=== PATIENT | male | born 1945 | race Caucasian/White ===

== ENCOUNTER 2016-05-06 09:18 | Day surgery (SDC) | payer OTHER ==
[2016-05-05 10:26] VITALS: BMI 30.5
[~2016-05-06 09:18] MED LIST: LACTATED RINGERS 1,000 ML IV SCH; LIDOCAINE 1% 20 ML VIAL (10MG/ML) FOR IV START INTRADERMA PRN
[2016-05-06 09:57] LABS: Glucose,Whole Blood 85 mg/dL (75-99)
[2016-05-06 10:06] VITALS: RESP 16; TEMP 97.2
[2016-05-06] MEDS ORDERED: PROPOFOL 10 MG/ML 20 ML VIAL IV ONE (10:20)
[2016-05-06] MEDS ORDERED: LIDOCAINE 1% INJ 10MG/ML (20 ML MDV) ONE (10:20)
--- NOTE | 2016-05-06 10:59 | P.PCN ---
Date of Procedure: 05/06/16 Procedure(s) Performed: Procedure: 1. Esophagogastroduodenoscopy and biopsy. 2. Total colonoscopy. Preoperative diagnosis: Screening for colon neoplasia, patient has history of polyps, and history of Mishra's esophagus. Preparation: HalfLytely prep. Sedation: Was provided by anesthesia. Brief clinical history: The patient is a 71-year-old male who was evaluated in the office and scheduled for this examination because of history of Mishra's esophagus and history of polyps. His last endoscopies were around 3 years ago or so at the [facility] and was told he should have repeat exams in around 3 years. At this point, he has no abdominal complaints, bleeding or anemia. He has been maintained on PPI over the years. Procedure: With the patient on his left lateral decubitus position and after informed consent and adequate sedation, I passed the Olympus-GIF 160 video upper endoscope through the cricopharyngeus down the esophagus. GE junction was around 41-42 cm from the incisors and I did not notice any tubular esophagus distal to the GE junction or any evidence of hiatal hernia. The esophagus did not show any erosions, ulcers, strictures or any evidence of Mishra's esophagus. The endoscope was then passed into the stomach which was insufflated with air and inspected in detail including the retroflex view in the cardia. There was minimal mottling and erythema and minimal friability but no ulcers or erosions. Similar findings were seen in the duodenum without any ulcers erosions or bleeding. I obtained biopsies from the duodenum, antrum and esophagus then the endoscope was withdrawn and I then proceeded with the colonoscopy. Perianal area did not show any fissures or fistulas. There were no masses felt on digital rectal examination. The Olympus CFQ 160L video colonoscope was then inserted in the rectum in the usual fashion and advanced to the cecum. The mucosa appeared healthy. No polyps or tumors were seen or any obvious diverticular disease or other pathology. I retroflexed endoscope in the rectum before the endoscope was withdrawn. The patient tolerated the procedure well. Plan: The patient was reassured. He will follow up with you as planned and I recommended repeat colonoscopy in 5 years. At that time, consideration can be given for repeat upper endoscopy because of the history of Mishra's despite the absence of any such findings on his exam today.
[2016-05-06 11:39] VITALS: BP 121/69; PULSE 67
== END 2016-05-06 11:42 | disposition home or self-care (01) ==
LOC: ORWHC2ENDO 09:18
DX: Z12.11 Encounter for screening for malignant neoplasm of colon (principal); K21.0 Gastro-esophageal reflux disease with esophagitis; K29.50 Unspecified chronic gastritis without bleeding; E11.9 Type 2 diabetes mellitus without complications; I10 Essential (primary) hypertension; E78.5 Hyperlipidemia, unspecified; G25.81 Restless legs syndrome; Z88.7 Allergy status to serum and vaccine; Z88.8 Allergy status to other drugs, medicaments and biological substances; Z87.442 Personal history of urinary calculi; Z79.899 Other long term (current) drug therapy; Z79.82 Long term (current) use of aspirin
CPT/HCPCS: 88305; 43239; J2001; J2704; G0105; 99153

== ENCOUNTER → 2016-05-21 | Outpatient (CLI) | payer OTHER ==
[2016-05-21 18:37] LABS: Blood Urea Nitrogen 16 mg/dL (9-20); Non-African American GFR(MDRD) >60 (>60 ml/min/1.73 sqM)
--- NOTE | 2016-05-21 19:35 | CT ---
EXAMINATION TYPE: CT urogram wo/w con DATE OF EXAM: 05/21/2016 7:26 PM COMPARISON: NONE HISTORY: Hematuria with history of stones CT DLP: 2885.2 mGycm Automated exposure control for dose reduction was used. CONTRAST: Performed with IV Contrast, patient injected with 100 mL of Omnipaque 350. FINDINGS: There is mild subsegmental atelectasis at the lung bases. There is no pleural effusion. There is no p ericardial effusion. There is slight decreased density in the liver consistent with fatty infiltration. Spleen appears nor mal. There is no pancreatic mass. There are clips from cholecystectomy. Bile ducts are not dilated. T here is no adrenal mass. Noncontrast images show no renal calculus. There is no retroperitoneal adeno jethro. There is satisfactory contrast opacification of the kidneys. There is no hydronephrosis. Urete rs are not dilated. Bladder distends smoothly. There is no sign of a pelvic mass. Appendix appears normal. I see no intestinal wall thickening. There are no dilated loops. There is no ascites. There are spondylotic changes in the lower lumbar spine. There is posterior fusion surgery in the lower lumbar spine. IMPRESSION: SPONDYLOTIC CHANGES OF THE LUMBAR SPINE. ATHEROSCLEROTIC VASCULAR DISEASE. NO EVIDENCE OF RENAL STONE OR OBSTRUCTION. NORMAL RENAL FUNCTION. MILD FATTY INFILTRATION OF THE LIVER. MILD SUBSEGMENTAL ATELECTASIS AT THE LUNG BASES.
== END | disposition home or self-care (01) ==
LOC: RADCTMAIN 17:44
PROVIDERS: ATTEND Urology
DX: K76.0 Fatty (change of) liver, not elsewhere classified (principal); I70.90 Unspecified atherosclerosis; R31.29 Other microscopic hematuria
CPT/HCPCS: 82565; 84520; 74178; 36415; 74400; Q9967

== ENCOUNTER 2017-09-10 09:08 | Emergency (ER) | payer OTHER ==
[2017-09-10 09:14] VITALS: RESP 18; TEMP 97.4
--- NOTE | 2017-09-10 09:59 | ED ---
Eye Problem HPI - General Chief complaint: Eye Problems Stated complaint: lt eye problem Time Seen by Provider: 09/10/17 09:16 Source: patient, RN notes reviewed Mode of arrival: ambulatory Limitations: no limitations - History of Present Illness Initial comments: 72-year-old male presents to the emergency Department for left eye problems. Patient states that he is having issues with his retina on the left and sees Dr. Medina. Patient states that it's he was advised to be seen immediately fear had any issues. Patient woke up with some redness and some blurred vision. He describes as a fall over his left eye. Patient denies any trauma he has no associated pain, headache, dizziness or any focal weakness. Denies any purulent drainage. - Related Data Home Medications Medication Instructions Recorded Confirmed Aspirin EC [Ecotrin] 81 mg PO DAILY 11/07/15 05/05/16 Atorvastatin [Lipitor] 80 mg PO HS 11/07/15 05/05/16 Carbidopa/Levodopa [Sinemet CR 1 tab PO DAILY@1200 11/07/15 05/05/16 50-200 mg] Carbidopa/Levodopa [Sinemet CR 2 tab PO HS 11/07/15 05/05/16 50-200 mg] Cholecalciferol [Vitamin D3] 1,000 unit PO DAILY 11/07/15 05/05/16 Dextran 70/Hypromellose [Genteal 1 drop BOTH EYES DAILY 11/07/15 05/05/16 Tears 0.1%-0.3% Drop] Ferrous Sulfate [Feosol] 325 mg PO DAILY 11/07/15 05/05/16 Gabapentin [Neurontin] 600 mg PO TID 11/07/15 05/05/16 Hydrochlorothiazide [Hydrodiuril] 25 mg PO DAILY 11/07/15 05/05/16 Losartan Potassium [Cozaar] 100 mg PO DAILY 11/07/15 05/05/16 Metoprolol Tartrate [Lopressor] 25 mg PO BID 11/07/15 05/05/16 Pantoprazole [Protonix] 40 mg PO DAILY 11/07/15 05/05/16 Sertraline [Zoloft] 100 mg PO DAILY 11/07/15 05/05/16 Sildenafil Citrate [Viagra] 100 mg PO ONCE PRN 11/07/15 05/05/16 Terazosin [Hytrin] 5 mg PO HS 11/07/15 05/05/16 clonazePAM [KlonoPIN] 0.5 mg PO HS 11/07/15 05/05/16 cycloSPORINE 0.05% OPHTH SOLN 1 drop BOTH EYES BID 11/07/15 05/05/16 [Restasis] metFORMIN HCL [Glucophage] 850 mg PO TID 11/07/15 05/05/16 rOPINIRole HCL 5 mg PO DAILY@1200 11/07/15 05/05/16 rOPINIRole HCL [Requip] 10 mg PO HS 11/07/15 05/05/16 traZODone HCL [Desyrel] 50 mg PO HS 11/07/15 05/05/16 Carbidopa/Levodopa [Sinemet CR 1 each PO QAM 05/05/16 05/05/16 50-200 mg] Allergies Allergy/AdvReac Type Severity Reaction Status Date / Time latex Allergy Rash/Hives Verified 09/10/17 10:00 Tetanus Vaccines and Toxoid Allergy Unknown Verified 09/10/17 10:00 [Tetanus Vaccines & Toxoid] Childhood tape AdvReac Rash/Hives Uncoded 05/05/16 10:04 Review of Systems ROS Statement: Those systems with pertinent positive or pertinent negative responses have been documented in the HPI. ROS Other: All systems not noted in ROS Statement are negative. Past Medical History Past Medical History: Diabetes Mellitus, GERD/Reflux, Hyperlipidemia, Hypertension Additional Past Medical History / Comment(s): RLS, kidney stones History of Any Multi-Drug Resistant Organisms: None Reported Past Surgical History: Back Surgery, Cholecystectomy, Joint Replacement, Orthopedic Surgery Additional Past Surgical History / Comment(s): RT ARM SX. RT TKA. BACK SX X 2. KIDNEY STONES REMOVED. COLONOSCOPY, EGD Past Anesthesia/Blood Transfusion Reactions: No Reported Reaction Past Psychological History: PTSD Smoking Status: Former smoker Past Alcohol Use History: Occasional Past Drug Use History: None Reported - Past Family History Mother Family Medical History: No Reported History General Exam Limitations: no limitations General appearance: alert, in no apparent distress Head exam: Present: atraumatic, normocephalic, normal inspection Eye exam: Present: PERRL, EOMI, conjunctival injection (Left, subconjunctival hemorrhage). Absent: normal appearance, scleral icterus, periorbital swelling Expanded Eyelids: Normal Inspection: Bilateral Pupils: Regular, Round: Bilateral Sclera/Conjunctival: Injection: Left, Hemorrhage: Left Anterior chamber: Normal Inspection: Bilateral Posterior chamber: Normal Inspection: Bilateral Visual acuity (R) = 20/: 20 Visual acuity (L) = 20/: 30 IOP (R) in mmH IOP (L) in mmH IOP measured with: [employer]open ENT exam: Present: normal exam, normal oropharynx, mucous membranes moist, TM's normal bilaterally, normal external ear exam Neck exam: Present: normal inspection, full ROM. Absent: tenderness, meningismus, lymphadenopathy Respiratory exam: Present: normal lung sounds bilaterally. Absent: respiratory distress, wheezes, rales, rhonchi, stridor Cardiovascular Exam: Present: regular rate, normal rhythm, normal heart sounds. Absent: systolic murmur, diastolic murmur, rubs, gallop, clicks Neurological exam: Present: alert, oriented X3, CN II-XII intact, reflexes normal. Absent: motor sensory deficit Course Vital Signs 09/10/17 09:12 Temperature 97.4 F L Pulse Rate 72 Respiratory 18 Rate Blood Pressure 123/72 O2 Sat by Pulse 99 Oximetry Medical Decision Making - Medical Decision Making 72-year-old male presented for left eye redness and blurred vision. Patient does have history of right no issues. I did contact Dr. Carrillo office in which they will see him at 10:40 AM. Patient will be discharged and sent directly to his office for evaluation with associate professor of economics. Disposition Clinical Impression: Blurred vision, left eye, Subconjunctival hemorrhage of left eye Disposition: HOME SELF-CARE Condition: Stable Instructions: Blurred Vision (ED) Additional Instructions: Go directly to Dr. Nation's office. Please return to the Emergency Department if symptoms worsen or any other concerns. Is patient prescribed a controlled substance at d/c from ED?: No Referrals: [facility],Clinic [Primary Care Provider] - 1-2 days Time of Disposition: 09:59
[2017-09-10 10:08] VITALS: BP 142/65; PULSE 91
== END 2017-09-10 10:08 | disposition home or self-care (01) ==
LOC: EC 09:08
DX: H11.32 Conjunctival hemorrhage, left eye (principal); H53.8 Other visual disturbances; E11.9 Type 2 diabetes mellitus without complications; K21.9 Gastro-esophageal reflux disease without esophagitis; E78.5 Hyperlipidemia, unspecified; I10 Essential (primary) hypertension; G25.81 Restless legs syndrome; F43.10 Post-traumatic stress disorder, unspecified; Z87.891 Personal history of nicotine dependence; Z79.82 Long term (current) use of aspirin; Z79.84 Long term (current) use of oral hypoglycemic drugs; Z79.899 Other long term (current) drug therapy; Z88.7 Allergy status to serum and vaccine; Z91.040 Latex allergy status; Z91.048 Other nonmedicinal substance allergy status
CPT/HCPCS: 99283

== ENCOUNTER 2018-06-13 13:07 | Emergency (ER) | payer OTHER ==
[2018-06-13 13:19] VITALS: TEMP 97.8
[2018-06-13] MEDS ORDERED: IPRATROPIUM-ALBUTEROL 3 ML NEB INHALATION STA (13:43)
[2018-06-13] MEDS ORDERED: methylPREDNISolone SOD SUCCI 125 MG/2 ML VIAL IV STA (13:43)
--- NOTE | 2018-06-13 13:47 | ED ---
URI HPI - General Chief Complaint: Upper Respiratory Infection Stated Complaint: Cough Time Seen by Provider: 06/13/18 13:22 Source: patient, RN notes reviewed, old records reviewed Mode of arrival: ambulatory Limitations: no limitations - History of Present Illness Initial Comments: Patient is a 73-year-old male presents emergency department today with 1 week of productive cough complaining of sinus and ear congestion. Patient reports that he feels like his ears are plugged cannot hear over the past 2 days. Patient reports that symptoms started after he came back from his cruise. Patient states that he has had no nausea or vomiting. Denies any known fever but reports occasional chills and bodyaches. Patient states that he's had no history of COPD or lung diseases. 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 - Related Data Home Medications Medication Instructions Recorded Confirmed Aspirin EC [Ecotrin] 81 mg PO DAILY 11/07/15 09/10/17 Atorvastatin [Lipitor] 80 mg PO HS 11/07/15 09/10/17 Dextran 70/Hypromellose [Genteal 1 drop BOTH EYES DAILY 11/07/15 09/10/17 Tears 0.1%-0.3% Drop] Ferrous Sulfate [Feosol] 325 mg PO BID 11/07/15 09/10/17 Gabapentin [Neurontin] 300 mg PO TID 11/07/15 09/10/17 Hydrochlorothiazide [Hydrodiuril] 25 mg PO DAILY 11/07/15 09/10/17 Losartan Potassium [Cozaar] 100 mg PO DAILY 11/07/15 09/10/17 Metoprolol Tartrate [Lopressor] 25 mg PO BID 11/07/15 09/10/17 Pantoprazole [Protonix] 40 mg PO DAILY 11/07/15 09/10/17 Terazosin [Hytrin] 5 mg PO HS 11/07/15 09/10/17 cycloSPORINE 0.05% OPHTH SOLN 1 drop BOTH EYES BID 11/07/15 09/10/17 [Restasis] metFORMIN HCL [Glucophage] 850 mg PO TID 11/07/15 09/10/17 rOPINIRole HCL 5 mg PO DAILY@1200 11/07/15 09/10/17 rOPINIRole HCL [Requip] 10 mg PO HS 11/07/15 09/10/17 Carbidopa/Levodopa [Sinemet CR 2 tab PO TID 05/05/16 09/10/17 50-200 mg] Cholecalciferol (Vitamin D3) 2,000 unit PO DAILY 09/10/17 09/10/17 [Vitamin D3] DULoxetine HCL [Cymbalta] 40 mg PO DAILY 09/10/17 09/10/17 Meloxicam [Mobic] 15 mg PO DAILY 09/10/17 09/10/17 Tadalafil [Cialis] 20 mg PO DAILY PRN 09/10/17 09/10/17 traZODone HCL 150 mg PO HS 09/10/17 09/10/17 Previous Rx's Medication Instructions Recorded Albuterol Inhaler [Ventolin Hfa 1 - 2 puff INHALATION RT-Q6H PRN 06/13/18 Inhaler] #1 inhaler Albuterol Nebulized [Ventolin 2.5 mg INHALATION Q4H #30 nebu 06/13/18 Nebulized] Azithromycin 250 mg PO DAILY #6 tablet 06/13/18 predniSONE 50 mg PO DAILY #5 tablet 06/13/18 Allergies Allergy/AdvReac Type Severity Reaction Status Date / Time latex Allergy Rash/Hives Verified 06/13/18 13:19 Tetanus Vaccines and Toxoid Allergy Unknown Verified 06/13/18 13:19 [Tetanus Vaccines & Toxoid] Childhood tape AdvReac Rash/Hives Uncoded 06/13/18 13:19 Review of Systems ROS Statement: Those systems with pertinent positive or pertinent negative responses have been documented in the HPI. ROS Other: All systems not noted in ROS Statement are negative. Past Medical History Past Medical History: Diabetes Mellitus, GERD/Reflux, Hyperlipidemia, Hypertension Additional Past Medical History / Comment(s): RLS, kidney stones History of Any Multi-Drug Resistant Organisms: None Reported Past Surgical History: Back Surgery, Cholecystectomy, Joint Replacement, Orthopedic Surgery Additional Past Surgical History / Comment(s): RT ARM SX. RT TKA. BACK SX X 2. KIDNEY STONES REMOVED. COLONOSCOPY, EGD Past Anesthesia/Blood Transfusion Reactions: No Reported Reaction Past Psychological History: PTSD Smoking Status: Former smoker Past Alcohol Use History: Occasional Past Drug Use History: None Reported - Past Family History Mother Family Medical History: No Reported History General Exam - General Exam Comments Initial Comments: 73-year-old male. Alert and oriented 3. Patient appears in no acute distress. Limitations: no limitations General appearance: alert, in no apparent distress Head exam: Present: atraumatic, normocephalic, normal inspection Eye exam: Present: normal appearance, PERRL, EOMI. Absent: scleral icterus, conjunctival injection, periorbital swelling ENT exam: Present: normal exam, mucous membranes moist, other (Patient has bilateral cerumen impactions.) Neck exam: Present: normal inspection. Absent: tenderness, meningismus, lymphadenopathy Respiratory exam: Present: wheezes, rhonchi. Absent: normal lung sounds bilaterally, respiratory distress, rales, stridor Cardiovascular Exam: Present: regular rate, normal rhythm, normal heart sounds. Absent: systolic murmur, diastolic murmur, rubs, gallop, clicks GI/Abdominal exam: Present: soft, normal bowel sounds. Absent: distended, tenderness, guarding, rebound, rigid Extremities exam: Present: normal inspection, full ROM, normal capillary refill. Absent: tenderness, pedal edema, joint swelling, calf tenderness Back exam: Present: normal inspection Neurological exam: Present: alert, oriented X3, CN II-XII intact Psychiatric exam: Present: normal affect, normal mood Course Vital Signs 06/13/18 06/13/18 06/13/18 13:17 14:00 14:25 Temperature 97.8 F Pulse Rate 89 80 84 Respiratory 18 Rate Blood Pressure 118/61 O2 Sat by Pulse 97 Oximetry 06/13/18 15:28 Temperature Pulse Rate 68 Respiratory 14 Rate Blood Pressure 111/60 O2 Sat by Pulse 94 L Oximetry Medical Decision Making - Medical Decision Making 73-year-old male presents emergency department today for cough congestion times one week. He also complains of ear congestion. He does have bilateral cerumen impaction. At this time Patient is irrigated and cerumen was disimpacted. He did have wheezing noted on exam was given a double DuoNeb treatment has significant improvement. Patient chest x-rays remain normal. He does have significant wheezing and rhonchi noted. We'll treat the Patient at this time for bronchitis with steroids and antibiotic. He was given a gram of Rocephin and ED. Blood cultures were obtained. Patient will be discharged at this time with close follow-up with his primary care doctor. Discussed strict return parameters. All questions answered. - Lab Data Result diagrams: 06/13/18 14:50 06/13/18 14:50 Lab Results 06/13/18 06/13/18 06/13/18 Range/Units 14:34 14:50 14:50 WBC 6.8 (3.8-10.6) k/uL RBC 4.64 (4.30-5.90) m/uL Hgb 13.7 (13.0-17.5) gm/dL Hct 42.9 (39.0-53.0) % MCV 92.5 (80.0-100.0) fL MCH 29.6 (25.0-35.0) pg MCHC 32.0 (31.0-37.0) g/dL RDW 13.7 (11.5-15.5) % Plt Count 149 L (150-450) k/uL Neutrophils % 61 % Lymphocytes % 25 % Monocytes % 5 % Eosinophils % 6 % Basophils % 0 % Neutrophils # 4.2 (1.3-7.7) k/uL Lymphocytes # 1.7 (1.0-4.8) k/uL Monocytes # 0.3 (0-1.0) k/uL Eosinophils # 0.4 (0-0.7) k/uL Basophils # 0.0 (0-0.2) k/uL Sodium 142 (137-145) mmol/L Potassium 3.9 (3.5-5.1) mmol/L Chloride 104 (98-107) mmol/L Carbon Dioxide 29 (22-30) mmol/L Anion Gap 9 mmol/L BUN 14 (9-20) mg/dL Creatinine 0.73 (0.66-1.25) mg/dL Est GFR (CKD-EPI)AfAm >90 (>60 ml/min/1.73 sqM) Est GFR (CKD-EPI)NonAf >90 (>60 ml/min/1.73 sqM) Glucose 76 (74-99) mg/dL Plasma Lactic Acid Sanjay (0.7-2.0) mmol/L Calcium 9.4 (8.4-10.2) mg/dL Influenza Type A RNA Not Detected (Not Detectd) Influenza Type B (PCR) Not Detected (Not Detectd) 06/13/18 Range/Units 14:50 WBC (3.8-10.6) k/uL RBC (4.30-5.90) m/uL Hgb (13.0-17.5) gm/dL Hct (39.0-53.0) % MCV (80.0-100.0) fL MCH (25.0-35.0) pg MCHC (31.0-37.0) g/dL RDW (11.5-15.5) % Plt Count (150-450) k/uL Neutrophils % % Lymphocytes % % Monocytes % % Eosinophils % % Basophils % % Neutrophils # (1.3-7.7) k/uL Lymphocytes # (1.0-4.8) k/uL Monocytes # (0-1.0) k/uL Eosinophils # (0-0.7) k/uL Basophils # (0-0.2) k/uL Sodium (137-145) mmol/L Potassium (3.5-5.1) mmol/L Chloride (98-107) mmol/L Carbon Dioxide (22-30) mmol/L Anion Gap mmol/L BUN (9-20) mg/dL Creatinine (0.66-1.25) mg/dL Est GFR (CKD-EPI)AfAm (>60 ml/min/1.73 sqM) Est GFR (CKD-EPI)NonAf (>60 ml/min/1.73 sqM) Glucose (74-99) mg/dL Plasma Lactic Acid Sanjay 1.5 (0.7-2.0) mmol/L Calcium (8.4-10.2) mg/dL Influenza Type A RNA (Not Detectd) Influenza Type B (PCR) (Not Detectd) - Radiology Data Radiology results: report reviewed Chest x-rays negative for any active croup on her disease. No change. Disposition Clinical Impression: Bronchitis, Cerumen impaction Disposition: HOME SELF-CARE Condition: Good Instructions (If sedation given, give patient instructions): Upper Respiratory Infection (ED), Cerumen Impaction (ED) Additional Instructions: Patient advised to follow-up with your primary care doctor within this much days. Take the antibiotic and steroid as prescribed. Using any inhaler as needed and decongestant medicine. Patient should return to the emergency department if any alarming signs or symptoms occur. Prescriptions: Azithromycin 250 mg PO DAILY #6 tablet predniSONE 50 mg PO DAILY #5 tablet Albuterol Inhaler [Ventolin Hfa Inhaler] 1 - 2 puff INHALATION RT-Q6H PRN #1 inhaler PRN Reason: Shortness Of Breath Albuterol Nebulized [Ventolin Nebulized] 2.5 mg INHALATION Q4H #30 nebu Is patient prescribed a controlled substance at d/c from ED?: No Referrals: [facility],Clinic [Primary Care Provider] - 1-2 days Time of Disposition: 16:02
--- NOTE | 2018-06-13 14:43 | XR ---
EXAMINATION TYPE: XR chest 2V DATE OF EXAM: 06/13/2018 COMPARISON: 11/07/2015 HISTORY: Cough TECHNIQUE: Frontal and lateral views of the chest are obtained. FINDINGS: There is no heart failure nor confluent pneumonic infiltrate. Costophrenic angles are willy r. Thoracic aorta is atheromatous. Bony thorax is intact. IMPRESSION: No active cardiopulmonary disease. No change.
[2018-06-13 15:03] LABS: Basophils % (A) 0 %; Eosinophils # (A) 0.4 k/uL (0-0.7); Eosinophils % (A) 6 %; HCT 42.9 % (39.0-53.0); HGB 13.7 gm/dL (13.0-17.5); Lymphocytes # (A) 1.7 k/uL (1.0-4.8); Lymphocytes % (A) 25 %; MCH 29.6 pg (25.0-35.0); MCV 92.5 fL (80.0-100.0); Mean Platelet Volume 7.9; Monocytes # (A) 0.3 k/uL (0-1.0); Monocytes % (A) 5 %; Neutrophils # (A) 4.2 k/uL (1.3-7.7); Neutrophils % (A) 61 %; Platelet Count 149 k/uL (150-450); RBC 4.64 m/uL (4.30-5.90); RDW 13.7 % (11.5-15.5); WBC 6.8 k/uL (3.8-10.6)
[2018-06-13] MEDS ORDERED: cefTRIAXone IN SWFI 1,000 MG/10 ML SYRINGE IVP STA (15:03)
[2018-06-13 15:17] LABS: Anion Gap 9 mmol/L; Blood Urea Nitrogen 14 mg/dL (9-20); Calcium 9.4 mg/dL (8.4-10.2); Carbon Dioxide 29 mmol/L (22-30); Chloride 104 mmol/L (98-107); Glucose 76 mg/dL (74-99); Sodium 142 mmol/L (137-145)
[2018-06-13 15:21] LABS: Potassium 3.9 mmol/L (3.5-5.1)
[2018-06-13 16:40] VITALS: BP 121/68; PULSE 66; RESP 18
== END 2018-06-13 16:40 | disposition home or self-care (01) ==
LOC: EC 13:07
DX: J40 Bronchitis, not specified as acute or chronic (principal); H61.23 Impacted cerumen, bilateral; E11.9 Type 2 diabetes mellitus without complications; K21.9 Gastro-esophageal reflux disease without esophagitis; E78.5 Hyperlipidemia, unspecified; I10 Essential (primary) hypertension; G25.81 Restless legs syndrome; F43.10 Post-traumatic stress disorder, unspecified; Z87.891 Personal history of nicotine dependence; Z79.84 Long term (current) use of oral hypoglycemic drugs; Z79.01 Long term (current) use of anticoagulants; Z79.82 Long term (current) use of aspirin; Z79.899 Other long term (current) drug therapy; Z88.7 Allergy status to serum and vaccine; Z91.040 Latex allergy status; Z91.048 Other nonmedicinal substance allergy status; Z96.651 Presence of right artificial knee joint
CPT/HCPCS: 99284 ×2; 96374 ×2; 96375 ×2; 36415; 94640; 80048; 83605; 85025; 87040; 87502; 71046; 69209 ×2; J2930; J0696

== ENCOUNTER 2018-06-17 16:51 | Inpatient (IN) | payer OTHER, MEDICARE ==
[2018-06-17 17:41] VITALS: BMI 31.3
[2018-06-17] MEDS ORDERED: clonazePAM 1 MG TAB PO PRN (18:18)
[2018-06-17] MEDS ORDERED: ARTIFICIAL TEARS-HYPROMELLOSE DROPS 15 ML BTL BOTH EYES PRN (18:18)
[2018-06-17] MEDS ORDERED: TADALAFIL 20 MG PO PRN (18:18)
[2018-06-17] MEDS ORDERED: methylPREDNISolone SOD SUCCI 125 MG/2 ML VIAL IV SCH (18:30)
[2018-06-17 19:04] LABS: Basophils % (A) 0 %; Eosinophils # (A) 0.1 k/uL (0-0.7); Eosinophils % (A) 1 %; HCT 43.2 % (39.0-53.0); Lymphocytes # (A) 1.1 k/uL (1.0-4.8); Lymphocytes % (A) 12 %; MCH 29.7 pg (25.0-35.0); MCHC 32.5 g/dL (31.0-37.0); MCV 91.5 fL (80.0-100.0); Mean Platelet Volume 9.1; Monocytes # (A) 0.2 k/uL (0-1.0); Monocytes % (A) 2 %; Neutrophils % (A) 85 %; Platelet Count 184 k/uL (150-450); RBC 4.72 m/uL (4.30-5.90); RDW 13.7 % (11.5-15.5); WBC 9.4 k/uL (3.8-10.6)
[2018-06-17 19:17] LABS: ALT 21 U/L (21-72); AST 24 U/L (17-59); Albumin 4.5 g/dL (3.5-5.0); Alkaline Phosphatase 47 U/L (38-126); Anion Gap 10 mmol/L; Blood Urea Nitrogen 17 mg/dL (9-20); Calcium 9.7 mg/dL (8.4-10.2); Carbon Dioxide 31 mmol/L (22-30); Chloride 97 mmol/L (98-107); Glucose 148 mg/dL (74-99); Potassium 4.2 mmol/L (3.5-5.1); Sodium 138 mmol/L (137-145); Total Protein 7.2 g/dL (6.3-8.2)
[2018-06-17] MEDS: SODIUM CHLORIDE 0.9% 1,000 ML IV SCH (19:59)
--- NOTE | 2018-06-17 20:01 | CT ---
EXAMINATION TYPE: CT chest wo con DATE OF EXAM: 06/17/2018 COMPARISON: None HISTORY: Pneumonia. CT DLP: 451.5 mGycm. Automated Exposure Control for Dose Reduction was Utilized. TECHNIQUE: CT scan of the thorax is performed without IV contrast. FINDINGS: There is minimal reticular subpleural density in both lungs. There is no evidence of a pulmonary mass . There is no pleural effusion. Heart size is normal. There is no pericardial effusion. There are no hilar masses. There is no mediastinal adenopathy. There is minimal atheromatous change in the thoraci c aorta. The bony thorax is intact. There is spurring in the thoracic spine. Upper abdominal soft tis sues are unremarkable. IMPRESSION: Mild subpleural density consistent with subsegmental atelectasis and pulmonary fibrosis. No suspicious pulmonary mass. No pulmonary consolidation.
[2018-06-17 20:06] LABS: Glucose,Whole Blood 132 mg/dL (75-99)
[2018-06-17] MEDS: IPRATROPIUM-ALBUTEROL 3 ML NEB INHALATION SCH (20:39)
[2018-06-17] MEDS ORDERED: AZITHROMYCIN 500 MG in SODIUM CHLORIDE 0.9% 250 ML IVPB SCH (21:00)
[2018-06-17] MEDS ORDERED: DOXAZOSIN 4 MG TAB PO SCH (21:00)
[2018-06-17] MEDS ORDERED: traZODone HCL 50 MG TAB PO SCH (21:00)
[2018-06-17] MEDS ORDERED: rOPINIRole HCL 4 MG TABLET PO SCH (21:00)
[2018-06-17] MEDS ORDERED: ATORVASTATIN 80 MG TAB PO SCH (21:00)
[2018-06-17] MEDS: cycloSPORINE 0.05% OPHTH 0.4 ML DROPERETTE BOTH EYES SCH (21:22)
[2018-06-17] MEDS: FERROUS SULFATE 325 MG TAB PO SCH (21:22)
[2018-06-17] MEDS: METOPROLOL TARTRATE 25 MG TAB PO SCH (21:23)
[2018-06-17] MEDS: INSULIN ASPART (NovoLOG) 100 UNIT/ML VIAL SQ SCH (21:23)
[2018-06-17] MEDS: CARBIDOPA-LEVODOPA ER 50-200MG 1 EACH TABLET.ER PO SCH (21:25)
[2018-06-17] MEDS: GABAPENTIN 300 MG CAP PO SCH (21:25)
[2018-06-17] MEDS: metFORMIN 850 MG TAB PO SCH (21:25)
[2018-06-18] MEDS: methylPREDNISolone SOD SUCCI 125 MG/2 ML VIAL IV SCH ×5 (00:38→12:05)
[2018-06-18 06:55] LABS: Glucose,Whole Blood 137 mg/dL (75-99)
[2018-06-18] MEDS ORDERED: PANTOPRAZOLE 40 MG TABLET PO SCH (07:30)
[2018-06-18] MEDS: INSULIN ASPART (NovoLOG) 100 UNIT/ML VIAL SQ SCH ×2 (07:55→12:06)
[2018-06-18] MEDS: IPRATROPIUM-ALBUTEROL 3 ML NEB INHALATION SCH ×2 (08:33→12:10)
[2018-06-18] MEDS ORDERED: LOSARTAN 50 MG TAB PO SCH (09:00)
[2018-06-18] MEDS ORDERED: DULoxetine HCL 20 MG CAPSULE.DR PO SCH (09:00)
[2018-06-18] MEDS ORDERED: HYDROCHLOROTHIAZIDE 25 MG TAB PO SCH (09:00)
[2018-06-18] MEDS ORDERED: ASPIRIN 81 MG PO SCH (09:00)
[2018-06-18] MEDS ORDERED: CHOLECALCIFEROL 1,000 UNIT TAB PO SCH (09:00)
[2018-06-18] MEDS ORDERED: predniSONE 50 MG TAB PO SCH (09:00)
[2018-06-18] MEDS: metFORMIN 850 MG TAB PO SCH (09:45)
[2018-06-18] MEDS: METOPROLOL TARTRATE 25 MG TAB PO SCH (09:45)
[2018-06-18] MEDS: CARBIDOPA-LEVODOPA ER 50-200MG 1 EACH TABLET.ER PO SCH (09:46)
[2018-06-18] MEDS: FERROUS SULFATE 325 MG TAB PO SCH (09:46)
[2018-06-18] MEDS: GABAPENTIN 300 MG CAP PO SCH (09:49)
[2018-06-18] MEDS: cycloSPORINE 0.05% OPHTH 0.4 ML DROPERETTE BOTH EYES SCH (09:50)
[2018-06-18] MEDS: SODIUM CHLORIDE 0.9% 1,000 ML IV SCH (10:19)
[2018-06-18 11:09] LABS: Glucose,Whole Blood 152 mg/dL (75-99)
--- NOTE | 2018-06-18 11:40 | HP ---
HISTORY AND PHYSICAL CHIEF COMPLAINT: A 73-year-old white male came to hospital for acute respiratory distress, cough, congestion, shortness of breath, failing outpatient treatment. Patient extremely lightheaded, dizziness at rest and dyspnea with exertion at which time he failed outpatient treatment. He was admitted to the hospitalist, started on antibiotics. A CAT scan of his lungs showed pulmonary fibrosis. Home medications include for restless legs syndrome, hypertension, diabetes mellitus, depression. MEDICATIONS: Please see list. A 14-point review of systems negative except for as mentioned in HPI. He is 95% on room air, temp 98, pulse 80s to 90s, respiratory 16 to 18, cardiovascular S1-S2. Lungs show scattered wheeze and rhonchi x4. Cardiovascular, S1, S2. No tachycardia. Abdomen is soft. Hematology, negative Homans. Vascular, normal dorsalis pedis, posterior pulses. Integument, no rashes. Psych fair mood and affect. ASSESSMENT: Patient pulmonary fibrosis exacerbation, tracheobronchitis, failed outpatient treatment, acute hypoxemic respiratory distress, restless legs syndrome, hypertension, diabetes mellitus. Continue current treatment for breathing. Suspect admitted for the next 1 to 2 days. MMODL / IJN: [id number] /
[2018-06-18 12:22] VITALS: BP 128/73; TEMP 97.9
[2018-06-18 13:28] VITALS: PULSE 81; RESP 20
--- NOTE | 2018-06-18 16:42 | P.CNPUL ---
History of Present Illness Consult date: 06/18/18 Reason for consult: dyspnea, cough Chief complaint: Shortness of breath History of present illness: This is a 73-year-old male who presented as a direct admit for shortness of breath, cough, congestion. The patient states that he thought he had pneumonia. He had a cold 2-3 weeks ago and states he never really got over it. He states prior to getting his cold 3 weeks ago he was not having any issues with his breathing before that. The patient does note that he has a history of Agent [place] exposure. He used to have recurrent bronchitis but has not had it in over 20 years. He is a former smoker and quit 36 years ago. He used to smoke half a pack per day for 22 years. He denies any other inhalational exposures. He denies exposures to asbestos or tuberculosis. He does have 1 cat in the home. He does not have a nebulizer. The patient states that last Thursday he started Ventolin but has not used it since being in the hospital. He denies fever and chills. He states that he did have wheezing that started when he got the cold. He denies a history of asthma or COPD. He states he has never had a PFT. The patient did have a CT chest which showed very minimal subpleural densities possibly suggestive of pulmonary fibrosis. This is discussed with the patient and his at length. Review of Systems All systems: negative Past Medical History Past Medical History: Diabetes Mellitus, GERD/Reflux, Hyperlipidemia, Hyper tension Additional Past Medical History / Comment(s): RLS, kidney stones, Parkinsons Disease History of Any Multi-Drug Resistant Organisms: None Reported Past Surgical History: Back Surgery, Cholecystectomy, Joint Replacement, Orthopedic Surgery Additional Past Surgical History / Comment(s): RT ARM SX. RT TKA. BACK SX X 2. KIDNEY STONES REMOVED. COLONOSCOPY, EGD. Cataract surgery Past Anesthesia/Blood Transfusion Reactions: No Reported Reaction Past Psychological History: PTSD Additional Psychological History / Comment(s): PTSD- pt is a combat . Smoking Status: Former smoker Past Alcohol Use History: Occasional Additional Past Alcohol Use History / Comment(s): QUIT SMOKING AT AGE 37 Past Drug Use History: None Reported - Past Family History Mother Family Medical History: No Reported History Medications and Allergies Home Medications Medication Instructions Recorded Confirmed Type Aspirin EC [Ecotrin] 81 mg PO DAILY 11/07/15 06/17/18 History Atorvastatin [Lipitor] 80 mg PO HS 11/07/15 06/17/18 History Dextran 70/Hypromellose [Genteal 1 drop BOTH EYES DAILY PRN 11/07/15 06/17/18 History Tears 0.1%-0.3% Drop] Ferrous Sulfate [Feosol] 325 mg PO BID 11/07/15 06/17/18 History Gabapentin [Neurontin] 300 mg PO TID 11/07/15 06/17/18 History Hydrochlorothiazide [Hydrodiuril] 25 mg PO DAILY 11/07/15 06/17/18 History Losartan Potassium [Cozaar] 100 mg PO DAILY 11/07/15 06/17/18 History Metoprolol Tartrate [Lopressor] 25 mg PO BID 11/07/15 06/17/18 History Pantoprazole [Protonix] 40 mg PO DAILY 11/07/15 06/17/18 History Terazosin [Hytrin] 5 mg PO HS 11/07/15 06/17/18 History cycloSPORINE 0.05% OPHTH SOLN 1 drop BOTH EYES BID 11/07/15 06/17/18 History [Restasis] metFORMIN HCL [Glucophage] 850 mg PO TID 11/07/15 06/17/18 History rOPINIRole HCL 5 mg PO DAILY@1200 11/07/15 06/17/18 History rOPINIRole HCL [Requip] 10 mg PO HS 11/07/15 06/17/18 History Carbidopa/Levodopa [Sinemet CR 2 tab PO TID 05/05/16 06/17/18 History 50-200 mg] Cholecalciferol (Vitamin D3) 2,000 unit PO DAILY 09/10/17 06/17/18 History [Vitamin D3] DULoxetine HCL [Cymbalta] 40 mg PO DAILY 09/10/17 06/17/18 History Tadalafil [Cialis] 20 mg PO DAILY PRN 09/10/17 06/17/18 History traZODone HCL 150 mg PO HS 09/10/17 06/17/18 History Albuterol Inhaler [Ventolin Hfa 1 - 2 puff INHALATION RT-Q6H PRN 06/13/18 06/17/18 Rx Inhaler] #1 inhaler predniSONE 50 mg PO DAILY #5 tablet 06/13/18 06/17/18 Rx Azithromycin See Taper PO DIRECTED 06/17/18 06/17/18 History clonazePAM [KlonoPIN] 1 mg PO HS PRN 06/17/18 06/17/18 History Allergies Allergy/AdvReac Type Severity Reaction Status Date / Time latex Allergy Rash/Hives Verified 06/17/18 18:12 Tetanus Vaccines and Toxoid Allergy Unknown Verified 06/17/18 18:12 [Tetanus Vaccines & Toxoid] Childhood tape AdvReac Rash/Hives Uncoded 06/13/18 13:19 Physical Exam Osteopathic Statement: *. No significant issues noted on an osteopathic structural exam other than those noted in the History and Physical/Consult. Vitals: Vital Signs Temp Pulse Pulse Resp BP Pulse Ox 06/18/18 13:10 81 20 06/18/18 12:19 84 06/18/18 12:10 80 06/18/18 11:40 97.9 F 76 16 128/73 92 L 06/18/18 08:44 92 06/18/18 08:33 92 06/18/18 05:01 98 F 75 18 124/73 95 06/17/18 20:53 78 06/17/18 20:40 80 06/17/18 20:34 98.1 F 63 18 118/66 95 06/17/18 17:35 97.7 F 70 16 129/64 95 Intake and Output 06/18/18 06/18/18 06/18/18 06:59 14:59 22:59 Intake Total 600 1200 Balance 600 1200 Intake: Intake, IV Titration 600 600 Amount Sodium Chloride 0.9% 1, 600 600 000 ml @ 75 mls/hr IV . [id number] [facility] Rx#:[id number] Oral 600 Other: Voiding Method Toilet Toilet # Voids 2 Gen.: Patient is alert and oriented 3, no acute distress Cardiovascular: Regular rate and rhythm, S1/S2 Lungs: Clear to auscultation bilaterally no wheezes rales or rhonchi Abdomen: Soft nontender nondistended positive bowel sounds Extremities: No edema Results - Laboratory Findings CBC and BMP: 06/17/18 18:53 06/17/18 18:53 PT/INR, D-dimer D-Dimer 0.26 mg/L FEU (<0.60) 06/17/18 18:53 Abnormal lab findings: Abnormal Labs 06/17/18 06/17/18 06/17/18 18:53 18:53 20:05 Neutrophils # 8.0 H Chloride 97 L Carbon Dioxide 31 H Glucose 148 H POC Glucose (mg/dL) 132 H 06/18/18 06/18/18 06:54 11:08 Neutrophils # Chloride Carbon Dioxide Glucose POC Glucose (mg/dL) 137 H 152 H - Diagnostic Findings CT scan - chest: report reviewed, image reviewed Assessment and Plan Assessment: Post viral syndrome Very mild subpleural densities, possibly suggestive of early IPF, however, too small to characterize Remote tobacco abuse RLS Hypertension DM2 Outpatient follow up with PFT and repeat CT in 3-[address] scan results are discussed with the patient and his at length Changes are too small to characterize at this time, we will continue to monitor outpatient Agree with albuterol PRN, Prednisone taper, would add ICS as well Follow up in pulmonary office in 2 weeks OK to DC from pulmonary standpoint. Thank you for this consultation.
[2018-06-19] MEDS ORDERED: AZITHROMYCIN 500 MG TAB PO SCH (21:00)
== END 2018-06-18 16:10 | disposition home or self-care (01) | DRG 203 ==
LOC: 3NMEDONC 16:51
PROVIDERS: ADMIT Family Medicine; ATTEND Family Medicine
DX: J40 Bronchitis, not specified as acute or chronic (principal); G20 Parkinson's disease; J84.10 Pulmonary fibrosis, unspecified; R06.03 Acute respiratory distress; E11.9 Type 2 diabetes mellitus without complications; B34.9 Viral infection, unspecified; K21.9 Gastro-esophageal reflux disease without esophagitis; F32.9 Major depressive disorder, single episode, unspecified; E78.5 Hyperlipidemia, unspecified; I10 Essential (primary) hypertension; G25.81 Restless legs syndrome; F43.10 Post-traumatic stress disorder, unspecified; Z79.84 Long term (current) use of oral hypoglycemic drugs; Z79.82 Long term (current) use of aspirin; Z79.899 Other long term (current) drug therapy; Z96.651 Presence of right artificial knee joint; Z87.891 Personal history of nicotine dependence; Z87.442 Personal history of urinary calculi; Z90.49 Acquired absence of other specified parts of digestive tract; Z91.040 Latex allergy status; Z88.7 Allergy status to serum and vaccine; Z91.048 Other nonmedicinal substance allergy status
CPT/HCPCS: 71250; 80053; 83880; 85025; 85379; 94640

== ENCOUNTER 2018-06-30 13:19 | Emergency (ER) | payer OTHER, MEDICARE ==
[2018-06-30 13:34] VITALS: RESP 18
--- NOTE | 2018-06-30 14:13 | US ---
EXAMINATION TYPE: US venous doppler duplex LE LT DATE OF EXAM: 06/30/2018 1:59 PM COMPARISON: NONE CLINICAL HISTORY: Pain. Left lower leg pain x couple days SIDE PERFORMED: Left TECHNIQUE: The lower extremity deep venous system is examined utilizing real time linear array sonog garrick with graded compression, doppler sonography and color-flow sonography. VESSELS IMAGED: External Iliac Vein (EIV) Common Femoral Vein Deep Femoral Vein Greater Saphenous Vein * Femoral Vein Popliteal Vein Small Saphenous Vein * Proximal Calf Veins (* superficial vessels) There is normal flow, compressibility, vascular waveforms. Left Leg: Appears negative for DVT IMPRESSION: No evident deep venous thrombosis at or above the left knee
--- NOTE | 2018-06-30 14:37 | ED ---
Extremity Problem HPI - General Chief complaint: Extremity Problem,Nontraumatic Stated complaint: poss blood clot Time Seen by Provider: 06/30/18 13:36 Source: patient, RN notes reviewed, old records reviewed Mode of arrival: wheelchair Limitations: no limitations - History of Present Illness Initial comments: 73-year-old male presents emergency Department today with complaints of left posterior knee pain. Patient was sent in for ruling out DVT. Patient reports no fall or trauma. He is not dull ache for the past week. Patient states that he has no other complaints. Patient denies history of DVT. Denies chest pain or shortness of breath. reports he has history of peripheral neuropathy.Patient denies any recent fever, chills, shortness of breath, chest pain, back pain, abdominal pain, nausea vomiting, numbness or tingling, dysuria or hematuria, constipation or diarrhea, headaches or visual changes, or any other current symptoms - Related Data Home Medications Medication Instructions Recorded Confirmed Aspirin EC [Ecotrin] 81 mg PO DAILY 11/07/15 06/30/18 Atorvastatin [Lipitor] 80 mg PO HS 11/07/15 06/30/18 Dextran 70/Hypromellose [Genteal 1 drop BOTH EYES DAILY PRN 11/07/15 06/30/18 Tears 0.1%-0.3% Drop] Ferrous Sulfate [Feosol] 325 mg PO BID 11/07/15 06/30/18 Gabapentin [Neurontin] 300 mg PO TID 11/07/15 06/30/18 Hydrochlorothiazide [Hydrodiuril] 25 mg PO DAILY 11/07/15 06/30/18 Losartan Potassium [Cozaar] 100 mg PO DAILY 11/07/15 06/30/18 Metoprolol Tartrate [Lopressor] 25 mg PO BID 11/07/15 06/30/18 Pantoprazole [Protonix] 40 mg PO DAILY 11/07/15 06/30/18 Terazosin [Hytrin] 5 mg PO HS 11/07/15 06/30/18 cycloSPORINE 0.05% OPHTH SOLN 1 drop BOTH EYES BID 11/07/15 06/30/18 [Restasis] metFORMIN HCL [Glucophage] 850 mg PO TID 11/07/15 06/30/18 rOPINIRole HCL 5 mg PO DAILY@1200 11/07/15 06/30/18 rOPINIRole HCL [Requip] 10 mg PO HS 11/07/15 06/30/18 Carbidopa/Levodopa [Sinemet CR 4 tab PO TID 05/05/16 06/30/18 50-200 mg] Cholecalciferol (Vitamin D3) 2,000 unit PO DAILY 09/10/17 06/30/18 [Vitamin D3] DULoxetine HCL [Cymbalta] 40 mg PO DAILY 09/10/17 06/30/18 Tadalafil [Cialis] 20 mg PO DAILY PRN 09/10/17 06/30/18 traZODone HCL 150 mg PO HS 09/10/17 06/30/18 clonazePAM [KlonoPIN] 1 mg PO HS PRN 06/17/18 06/30/18 Allergies Allergy/AdvReac Type Severity Reaction Status Date / Time latex Allergy Rash/Hives Verified 06/30/18 14:02 Tetanus Vaccines and Toxoid Allergy Unknown Verified 06/30/18 14:02 [Tetanus Vaccines & Toxoid] Childhood tape AdvReac Rash/Hives Uncoded 06/30/18 13:36 Review of Systems ROS Statement: Those systems with pertinent positive or pertinent negative responses have been documented in the HPI. ROS Other: All systems not noted in ROS Statement are negative. Past Medical History Past Medical History: Diabetes Mellitus, GERD/Reflux, Hyperlipidemia, Hypertension Additional Past Medical History / Comment(s): RLS, kidney stones, Parkinsons Disease History of Any Multi-Drug Resistant Organisms: None Reported Past Surgical History: Back Surgery, Cholecystectomy, Joint Replacement, Orthopedic Surgery Additional Past Surgical History / Comment(s): RT ARM SX. RT TKA. BACK SX X 2. KIDNEY STONES REMOVED. COLONOSCOPY, EGD. Cataract surgery Past Anesthesia/Blood Transfusion Reactions: No Reported Reaction Past Psychological History: PTSD Smoking Status: Former smoker Past Alcohol Use History: Occasional Past Drug Use History: None Reported - Past Family History Mother Family Medical History: No Reported History General Exam Limitations: no limitations General appearance: alert, in no apparent distress Head exam: Present: atraumatic, normocephalic, normal inspection Eye exam: Present: normal appearance, PERRL, EOMI. Absent: scleral icterus, conjunctival injection, periorbital swelling ENT exam: Present: normal exam, mucous membranes moist Neck exam: Present: normal inspection. Absent: tenderness, meningismus, lymphadenopathy Respiratory exam: Present: normal lung sounds bilaterally. Absent: respiratory distress, wheezes, rales, rhonchi, stridor Cardiovascular Exam: Present: regular rate, normal rhythm, normal heart sounds. Absent: systolic murmur, diastolic murmur, rubs, gallop, clicks GI/Abdominal exam: Present: soft, normal bowel sounds. Absent: distended, tenderness, guarding, rebound, rigid Extremities exam: Present: normal inspection, full ROM, normal capillary refill. Absent: tenderness, pedal edema, joint swelling, calf tenderness Left Upper Leg exam: Present: normal inspection, full ROM Knee exam: Present: normal inspection, full ROM, tenderness (Patient has tenderness over the medial meniscus.). Absent: dislocation, erythema, pain w/ pronation/supination, posterior draw sign, pain/laxity with valgus, pain/laxity with varus Lower Leg exam: Present: normal inspection, full ROM Neurovascular tendon exam: Present: no vascular compromise Gait: observed and normal Back exam: Present: normal inspection Neurological exam: Present: alert, oriented X3, CN II-XII intact Psychiatric exam: Present: normal affect, normal mood Skin exam: Present: warm, dry, intact, normal color. Absent: rash Course Vital Signs 06/30/18 13:30 Temperature 97.5 F L Pulse Rate 87 Respiratory 18 Rate Blood Pressure 101/56 O2 Sat by Pulse 96 Oximetry Medical Decision Making - Medical Decision Making Patient is a 73-year-old male sent in by PCP to rule out blood clot. He's had posterior calf pain for the past week and posterior knee pain. At this time is some tenderness over the ligaments over the posterior knee. Tenderness over the pes anseris. Patient had an ultrasound completed which is negative for DVT. Left knee x-rays negative for any acute process. Discussed likely a strain or ligamentous injury of the knee. Patient will be discharged at this time with antiplatelet her medicine. - Radiology Data Radiology results: report reviewed Extremities negative for any acute abnormality. Vascular consultation is noted incidentally. No evidence of joint effusion. Ultrasound was negative for DVT. Disposition Clinical Impression: Posterior left knee pain Disposition: HOME SELF-CARE Condition: Good Instructions (If sedation given, give patient instructions): Knee Pain (ED) Additional Instructions: Patient is advised to apply ice over the knee. Take anti-inflammatory medicine or the Mason wrap. Follow-up with orthopedic doctor primary care doctor. Return to the emergency department if there is any significant swelling redness to the leg. Is patient prescribed a controlled substance at d/c from ED?: No Referrals: Emil Oneill MD [Primary Care Provider] - 1-2 days Ramana Alvarez MD [STAFF PHYSICIAN] - 1-2 days Time of Disposition: 15:25
--- NOTE | 2018-06-30 15:22 | XR ---
Left knee HISTORY: Pain 3 views left knee Bone mineralization, joint spaces and alignment are maintained. No fracture or dislocation. Vascular calcifications noted incidentally. No evident joint effusion. IMPRESSION: No acute abnormality.
[2018-06-30 15:36] VITALS: BP 100/82; PULSE 70; TEMP 98
== END 2018-06-30 15:37 | disposition home or self-care (01) ==
LOC: EC 13:19
DX: M25.562 Pain in left knee (principal); I10 Essential (primary) hypertension; E78.5 Hyperlipidemia, unspecified; K21.9 Gastro-esophageal reflux disease without esophagitis; E11.9 Type 2 diabetes mellitus without complications; G20 Parkinson's disease; Z79.84 Long term (current) use of oral hypoglycemic drugs; Z79.82 Long term (current) use of aspirin; Z79.899 Other long term (current) drug therapy; Z91.040 Latex allergy status; Z91.048 Other nonmedicinal substance allergy status; Z88.7 Allergy status to serum and vaccine; Z96.651 Presence of right artificial knee joint; Z87.891 Personal history of nicotine dependence
CPT/HCPCS: 99284

== ENCOUNTER → 2018-09-20 | Outpatient (CLI) | payer OTHER ==
--- NOTE | 2018-09-20 08:51 | CT ---
EXAMINATION TYPE: CT chest wo con DATE OF EXAM: 09/20/2018 COMPARISON: 06/17/2018 HISTORY: 73-year-old male Chronic cough, spots in lungs TECHNIQUE: Contiguous axial scanning of the chest without IV contrast. Coronal and sagittal reconstru ctions performed. CT DLP: 471.7 mGycm Automated exposure control for dose reduction was used. FINDINGS: Heart normal size without pericardial effusion. Coronary vessel calcifications are present. Aorta normal caliber with mild atherosclerotic arch calcifications and suspected a nondominant left v ertebral artery origin directly from the aortic arch. No thoracic lymphadenopathy by CT size criteria. Minimal biapical pleural parenchymal scarring. Subpleural reticulations at the lung bases and subpleu ral region extending up to the mid lung level. No dominant groundglass densities. Stable strandy scar ring or atelectasis in the lingular region. No consolidation or pleural effusion. Low attenuation of the hepatic parenchyma. Moderate stool burden. Cholecystectomy clips. Bones: Bridging anterior endplate spondylosis mid to lower right spine with accentuated kyphosis. Fin dings suggest DISH. IMPRESSION: STABLE SUBPLEURAL RETICULATIONS AND MICROCYSTIC CHANGE IN THE BILATERAL LOWER LUNGS EXTENDING UP TO T HE MIDLUNG LEVEL. NO DOMINANT GROUNDGLASS DENSITIES. DIFFICULT TO EXCLUDE EARLY UIP/FIBROTIC NSIP AT THIS TIME. CHRONIC POSTINFLAMMATORY SEQUELA WITH SOME INTERSTITIAL FIBROSIS IS ALSO POSSIBLE.
== END | disposition home or self-care (01) ==
LOC: RADCTMAIN 08:18
PROVIDERS: ATTEND Internal Medicine
DX: J45.909 Unspecified asthma, uncomplicated (principal); G25.81 Restless legs syndrome; E78.5 Hyperlipidemia, unspecified; I10 Essential (primary) hypertension
CPT/HCPCS: 71250

== ENCOUNTER → 2019-01-12 | Outpatient (CLI) | payer OTHER ==
[2019-01-12 16:16] LABS: Calcium 9.2 mg/dL (8.7-10.3); Magnesium 1.8 mg/dL (1.5-2.4); Phosphorus 2.6 mg/dL (2.4-5.1); Potassium 4.3 mmol/L (3.5-5.5)
[2019-01-12 16:26] LABS: T4, Free (Free Thyroxine) 1.3 ng/dL (0.80-1.80)
== END | disposition home or self-care (01) ==
LOC: LABWHC1 09:22
PROVIDERS: ATTEND Psychiatry & Neurology Neurology
DX: M62.838 Other muscle spasm (principal)
CPT/HCPCS: 36415; 82310; 82607; 83735; 84100; 84132; 84295; 84439; 84443; 84481

== ENCOUNTER → 2019-01-27 | Outpatient (CLI) | payer OTHER ==
--- NOTE | 2019-01-28 01:10 | MR ---
EXAMINATION TYPE: MR lumbar spine wo con DATE OF EXAM: 01/27/2019 COMPARISON: None HISTORY: Lumbar pain TECHNIQUE: Multiplanar, multisequence images of the lumbar spine were acquired. There is metal artifact from posterior fusion surgery with rods and screws at L4 and L5 and S1. Verte bra have normal alignment. There is some degenerative mild disc space narrowing at L3-4 and L4-5. The re is posterior disc herniation at L3-4 with also some facet arthropathy. There is resultant moderate ly severe spinal stenosis at L3-4. There is no lumbar paraspinal mass. There is no compression fractu re. There is no significant narrowing of the lumbar neural foramina. IMPRESSION: Multilevel fusion surgery. Spondylotic changes. There is focal moderate lumbar spinal stenosis at L3- 4 due to posterior concentric disc herniation and facet arthropathy. There is also mild anterior disc herniation at L3-4.
== END | disposition home or self-care (01) ==
LOC: RADMRIMAIN 09:24
PROVIDERS: ATTEND Physician Assistant Medical
DX: M48.061 Spinal stenosis, lumbar region without neurogenic claudication (principal); M51.26 Other intervertebral disc displacement, lumbar region; M46.96 Unspecified inflammatory spondylopathy, lumbar region; M47.816 Spondylosis without myelopathy or radiculopathy, lumbar region; Z98.1 Arthrodesis status
CPT/HCPCS: 72148

== ENCOUNTER 2019-02-11 09:35 | Emergency (ER) | payer OTHER ==
[2019-02-11] MEDS ORDERED: diphenhydrAMINE 50 MG/ML 1 ML VIAL IVP STA (10:07)
[2019-02-11] MEDS ORDERED: ONDANSETRON 4 MG/2 ML VIAL IVP STA (10:07)
[2019-02-11] MEDS ORDERED: SODIUM CHLORIDE 0.9% 1,000 ML IV STA (10:07)
[2019-02-11] MEDS ORDERED: MORPHINE SULFATE 4 MG/ML SYRINGE IV STA (10:08)
--- NOTE | 2019-02-11 10:10 | ED ---
General Adult HPI - General Chief complaint: Headache Stated complaint: headache, dizziness Time Seen by Provider: 02/11/19 09:46 Source: EMS Mode of arrival: EMS Limitations: no limitations - History of Present Illness Initial comments: Dictation was produced using [employer] dictation software. please excuse any grammatical, word or spelling errors. Chief Complaint: 74-year-old male presents with worsening of his life. History of Present Illness: 74-year-old male presents today with headache 12 hours. Patient states he began having his headache since yesterday. States that it's in the bifrontal region radiating to the neck of the head. Patient states she's been having a cold recently with significant runny nose and cough. Patient denies any neck symptoms. Patient states his worse headache of his life. He does not have a history of headaches. States the pain as sharp and intermittent. No numbness distally paresthesias or weakness to the extremities. Patient's at bedside reports that patient is not confused. He initially went to the urgent care where he was initially evaluated in instructed to come to the emergency department for further evaluation. Patient does report that his headache did reach maximal onset of intensity within one hour. Patient has no history of intracranial aneurysms. The ROS documented in this emergency department record has been reviewed and confirmed by me. Those systems with pertinent positive or negative responses have been documented in the HPI. All other systems are other negative and/or noncontributory. PHYSICAL EXAM: General Impression: Alert and oriented x3, acute distress secondary to pain HEENT: Normocephalic atraumatic, extra-ocular movements intact, pupils equal and reactive to light bilaterally, mucous membranes moist. Cardiovascular: Heart regular rate and rhythm, S1&S2 audible, no murmurs, rubs or gallops Chest: Lungs clear to auscultation bilaterally, no rhonchi, no wheeze, no rales Abdomen: Bowel sounds present, abdomen soft, non-tender, non-distended, no organomegaly Musculoskeletal: Pulses present and equal in all extremities, no peripheral edema Motor: no focal deficits noted Neurological: CN II-XII grossly intact, no focal motor or sensory deficits noted, negative Brudzinski's, negative Kernig's, negative lhermittes sign Skin: Intact with no visualized rashes Psych: Normal affect and mood ED course: 74-year-old male with clinical presentation concerning for subarachnoid bleed. Patient is 12 hours since the onset of his symptoms. Upon arrival are within acceptable limits. Discussed with patient that his symptoms are concerning for subarachnoid hemorrhage. Laboratory evaluation was obtained. CBC, coag panel, metabolic panel is unremarkable. Computed tomography scan of the brain was unremarkable however didn't show signs of sinusitis.CT angios obtained per recommendation by Dr. Kidd. No aneurysms identified. Discussed patient case with neurologist who came down to the emergency department evaluated physician. His clinical presentation according to neurologist was consistent with sinusitis. He rec ommends patient be discharged with Augmentin. No recommendations to perform lumbar puncture at this time. Patient understandable agreeable to plan. Medications were sent to pharmacy. - Related Data Home Medications Medication Instructions Recorded Confirmed Aspirin EC [Ecotrin] 81 mg PO DAILY 11/07/15 02/11/19 Atorvastatin [Lipitor] 80 mg PO HS 11/07/15 02/11/19 Dextran 70/Hypromellose [Genteal 1 drop BOTH EYES DAILY PRN 11/07/15 02/11/19 Tears 0.1%-0.3% Drop] Ferrous Sulfate [Feosol] 325 mg PO DAILY 11/07/15 02/11/19 Hydrochlorothiazide [Hydrodiuril] 25 mg PO DAILY 11/07/15 02/11/19 Losartan Potassium [Cozaar] 100 mg PO DAILY 11/07/15 02/11/19 Metoprolol Tartrate [Lopressor] 25 mg PO BID 11/07/15 02/11/19 Pantoprazole [Protonix] 40 mg PO DAILY 11/07/15 02/11/19 Terazosin [Hytrin] 5 mg PO HS 11/07/15 02/11/19 metFORMIN HCL [Glucophage] 850 mg PO TID 11/07/15 02/11/19 Carbidopa/Levodopa [Sinemet CR 2 tab PO TID 05/05/16 02/11/19 50-200 mg] Cholecalciferol (Vitamin D3) 2,000 unit PO DAILY 09/10/17 02/11/19 [Vitamin D3] DULoxetine HCL [Cymbalta] 40 mg PO BID 09/10/17 02/11/19 traZODone HCL 150 mg PO HS PRN 09/10/17 02/11/19 Lidocaine 4% Cream [Lmx 4] 1 applic TOPICAL BID 02/11/19 02/11/19 Meloxicam [Mobic] 7.5 mg PO BID 02/11/19 02/11/19 rOPINIRole HCL [Requip Xl] 4 mg PO DAILY@1200 02/11/19 02/11/19 rOPINIRole HCL [Requip Xl] 8 mg PO HS 02/11/19 02/11/19 rOPINIRole HCL [Requip] 1 mg PO DAILY@1200 02/11/19 02/11/19 rOPINIRole HCL [Requip] 2 mg PO HS 02/11/19 02/11/19 Previous Rx's Medication Instructions Recorded Amoxic-Pot Clav 875-125Mg 1 tab PO Q12HR 7 Days #14 tablet 02/11/19 [Augmentin 875-125] Allergies Allergy/AdvReac Type Severity Reaction Status Date / Time latex Allergy Rash/Hives Verified 02/11/19 12:52 Tetanus Vaccines and Toxoid Allergy Unknown Verified 02/11/19 12:52 [Tetanus Vaccines & Toxoid] Childhood gabapentin AdvReac DEPRESSION Verified 02/11/19 12:52 lisinopril AdvReac Cough Verified 02/11/19 12:52 primidone AdvReac DROWSINESS Verified 02/11/19 12:52 tape AdvReac Rash/Hives Uncoded 06/30/18 13:36 Review of Systems ROS Statement: Those systems with pertinent positive or pertinent negative responses have been documented in the HPI. ROS Other: All systems not noted in ROS Statement are negative. Past Medical History Past Medical History: Diabetes Mellitus, GERD/Reflux, Hyperlipidemia, Hypertension Additional Past Medical History / Comment(s): RLS, kidney stones, Parkinsons Disease History of Any Multi-Drug Resistant Organisms: None Reported Past Surgical History: Back Surgery, Cholecystectomy, Joint Replacement, Orthopedic Surgery Additional Past Surgical History / Comment(s): RT ARM SX. RT TKA. BACK SX X 2. KIDNEY STONES REMOVED. COLONOSCOPY, EGD. Cataract surgery Past Anesthesia/Blood Transfusion Reactions: No Reported Reaction Past Psychological History: PTSD Smoking Status: Former smoker Past Alcohol Use History: Occasional Past Drug Use History: None Reported - Past Family History Mother Family Medical History: No Reported History General Exam Limitations: no limitations Course Vital Signs 02/11/19 02/11/19 02/11/19 09:41 12:00 13:28 Temperature 98.3 F 98.6 F Pulse Rate 92 76 87 Respiratory 16 18 18 Rate Blood Pressure 134/66 117/62 111/61 O2 Sat by Pulse 97 96 96 Oximetry Medical Decision Making - Lab Data Result diagrams: 02/11/19 10:20 02/11/19 10:20 Lab Results 02/11/19 02/11/19 02/11/19 Range/Units 10:20 10:20 10:20 WBC 8.5 (3.8-10.6) k/uL RBC 4.22 L (4.30-5.90) m/uL Hgb 12.9 L (13.0-17.5) gm/dL Hct 38.3 L (39.0-53.0) % MCV 90.7 (80.0-100.0) fL MCH 30.6 (25.0-35.0) pg MCHC 33.7 (31.0-37.0) g/dL RDW 13.0 (11.5-15.5) % Plt Count 151 (150-450) k/uL Neutrophils % 77 % Lymphocytes % 15 % Monocytes % 4 % Eosinophils % 3 % Basophils % 0 % Neutrophils # 6.5 (1.3-7.7) k/uL Lymphocytes # 1.3 (1.0-4.8) k/uL Monocytes # 0.4 (0-1.0) k/uL Eosinophils # 0.2 (0-0.7) k/uL Basophils # 0.0 (0-0.2) k/uL PT 9.4 (9.0-12.0) sec INR 0.9 (<1.2) APTT 23.5 (22.0-30.0) sec Sodium 136 L (137-145) mmol/L Potassium 3.5 (3.5-5.1) mmol/L Chloride 97 L (98-107) mmol/L Carbon Dioxide 29 (22-30) mmol/L Anion Gap 10 mmol/L BUN 15 (9-20) mg/dL Creatinine 0.74 (0.66-1.25) mg/dL Est GFR (CKD-EPI)AfAm >90 (>60 ml/min/1.73 sqM) Est GFR (CKD-EPI)NonAf >90 (>60 ml/min/1.73 sqM) Glucose 228 H (74-99) mg/dL Calcium 9.5 (8.4-10.2) mg/dL Disposition Clinical Impression: Headache Disposition: HOME SELF-CARE Condition: Good Instructions (If sedation given, give patient instructions): Acute Headache (ED), Sinusitis (ED) Additional Instructions: Rx sent to pharmacy Prescriptions: Amoxic-Pot Clav 875-125Mg [Augmentin 875-125] 1 tab PO Q12HR 7 Days #14 tablet Is patient prescribed a controlled substance at d/c from ED?: No Referrals: [facility],Clinic [Primary Care Provider] - 1-2 days Time of Disposition: 13:37
--- NOTE | 2019-02-11 10:45 | CT ---
EXAMINATION TYPE: CT brain wo con DATE OF EXAM: 02/11/2019 COMPARISON: None HISTORY: Headache, head pressure CT DLP: 1091.[address] of the brain was performed. The ventricles, basal cisterns and sulci overlying the cerebral convexities demonstrate mild enlargem ent. There is no evidence for intracranial hemorrhage or sulcal effacement. There is decreased attenuation about the periventricular white matter and deep white matter of both c erebral hemispheres, compatible with chronic small vessel ischemia. Differential diagnosis does inclu de demyelination. No mass effects are seen.No midline shift. Osseous calvarium is intact. Chronic paranasal sinusitis noted. If symptoms persist consider MRI. IMPRESSION: 1. Age related atrophic and chronic small vessel ischemic change without acute intracranial process s een at this time.
--- NOTE | 2019-02-11 10:47 | XR ---
EXAMINATION TYPE: XR chest 1V portable DATE OF EXAM: 02/11/2019 HISTORY: Shortness of breath. COMPARISON: 06/13/2018 TECHNIQUE: Single view of the chest is submitted. FINDINGS: Demonstrated are scattered senescent parenchymal change. There is no evidence for focal infiltrate. The heart is stable. Hilar and mediastinal structures are within normal limits. Degenerative changes are seen of the dorsal spine. IMPRESSION: 1. Chronic changes without evidence for acute pulmonary disease.
[2019-02-11 10:51] LABS: Basophils % (A) 0 %; Eosinophils # (A) 0.2 k/uL (0-0.7); Eosinophils % (A) 3 %; HCT 38.3 % (39.0-53.0); HGB 12.9 gm/dL (13.0-17.5); Lymphocytes # (A) 1.3 k/uL (1.0-4.8); Lymphocytes % (A) 15 %; MCH 30.6 pg (25.0-35.0); MCHC 33.7 g/dL (31.0-37.0); MCV 90.7 fL (80.0-100.0); Mean Platelet Volume 8.1; Monocytes # (A) 0.4 k/uL (0-1.0); Monocytes % (A) 4 %; Neutrophils # (A) 6.5 k/uL (1.3-7.7); Neutrophils % (A) 77 %; Platelet Count 151 k/uL (150-450); RBC 4.22 m/uL (4.30-5.90); WBC 8.5 k/uL (3.8-10.6)
[2019-02-11 10:58] LABS: African American GFR (CKD) >90 (>60 ml/min/1.73 sqM); Anion Gap 10 mmol/L; Blood Urea Nitrogen 15 mg/dL (9-20); Calcium 9.5 mg/dL (8.4-10.2); Carbon Dioxide 29 mmol/L (22-30); Chloride 97 mmol/L (98-107); Glucose 228 mg/dL (74-99); Potassium 3.5 mmol/L (3.5-5.1); Sodium 136 mmol/L (137-145)
[2019-02-11 11:01] LABS: INR 0.9 (<1.2); Partial Thromboplastin Time 23.5 sec (22.0-30.0); Prothrombin Time 9.4 sec (9.0-12.0)
--- NOTE | 2019-02-11 12:21 | CT ---
EXAMINATION TYPE: CT angio head neck DATE OF EXAM: 02/11/2019 COMPARISON: None HISTORY: Neurologic symptoms CONTRAST: Performed with IV Contrast, patient injected with 100 mL of Isovue 300. Combination Contrast CTA cervical carotids and [place] CTA cervical carotids with 3-D recons truction Contrast CTA of the cervical carotids was performed 3-D reconstruction imaging obtained at a separate workstation. Right carotid system: Mild plaque is seen of the right common carotid artery. There is mild plaque a lso noted at the carotid bulb and proximal ICA. No significant diameter reduction. ECA is patent. Right vertebral artery appears unremarkable. Left carotid system: Mild plaque is seen of the left common carotid artery. There is mild plaque als o noted at the carotid bulb and proximal ICA. No significant diameter reduction. ECA is patent. Lef t vertebral artery appears unremarkable. IMPRESSION: 1. No significant diameter reduction to account for the patient's symptoms. CTA [place] with 3-D reconstruction Contrast CTA of the [place] was performed 3-D reconstruction imaging obtained at a separate workstation. Vertebrobasilar system as well as intracranial portions of the internal carotid arteries and their ma ji tributaries are patent. I do not see evidence for sizable aneurysm or vascular malformation. Pl ease note MRI provides greater sensitivity and specificity. Visualized brain appears grossly unremar kable. IMPRESSION: 1. No significant abnormality.
[2019-02-11 13:04] VITALS: RESP 18
[2019-02-11 13:30] VITALS: BP 111/61; PULSE 87; TEMP 98.6
--- NOTE | 2019-02-11 15:18 | P.CNNES ---
History of Present Illness Consult date: 02/11/19 Requesting physician: Carlos Perez Reason for Consult: Headache History of Present Illness: Patient is a 74-year-old male with no previous history of headaches. Last night at around 6:30 to 7 PM he started having cough and congestion/cold. He then also noticed intense pain involving bilateral occipital region extending to the bilateral temporal region. The headache would come on coughing, blowing nose. It kept on getting worse. It would last for a 10-11 seconds, then goes away completely and then comes back. Patient denies any head or neck trauma, any paresthesias in this Region. Patient denies any history of migraines. He does feel pressure on the neck. Patient has history of diabetes for 30-40 years, well controlled the last A1c 5.9 as per patient. He has hypertension. Hyperlipidemia, well controlled on medication. He smoked half pack per day for 15 years, quit long time ago. Patient denies any family history of cerebral aneurysm. Patient does not go to chiropractic treatments. Patient denies any focal numbness tingling weakness slurred speech diplopia, loss of vision. Patient underwent computed tomography scan of the brain, which revealed age- related atrophic and chronic small vessel ischemic change without acute process. Chronic paranasal sinusitis. On my review, there is very significant amount of paranasal sinus disease. There is near complete opacification of the sphenoid sinus with an air fluid level. There is very significant ethmoid sinus area disease. Mucosal thickening of the left maxillary sinus. Chest x-ray showed chronic changes without evidence for acute pulmonary disease. Patient had a CTA of head and neck, which revealed no significant stenosis. Review of Systems Headaches, sinus congestion. There is shortness of breath, wheezing, diplopia, or any other focal symptoms. Denies any chest pain. Past Medical History Past Medical History: Diabetes Mellitus, GERD/Reflux, Hyperlipidemia, Hypertension Additional Past Medical History / Comment(s): RLS, kidney stones, Parkinsons Disease History of Any Multi-Drug Resistant Organisms: None Reported Past Surgical History: Back Surgery, Cholecystectomy, Joint Replacement, Orthopedic Surgery Additional Past Surgical History / Comment(s): RT ARM SX. RT TKA. BACK SX X 2. KIDNEY STONES REMOVED. COLONOSCOPY, EGD. Cataract surgery Past Anesthesia/Blood Transfusion Reactions: No Reported Reaction Past Psychological History: PTSD Smoking Status: Former smoker Past Alcohol Use History: Occasional Past Drug Use History: None Reported - Past Family History Mother Family Medical History: No Reported History Medications and Allergies Home Medications Medication Instructions Recorded Confirmed Type Aspirin EC [Ecotrin] 81 mg PO DAILY 11/07/15 02/11/19 History Atorvastatin [Lipitor] 80 mg PO HS 11/07/15 02/11/19 History Dextran 70/Hypromellose [Genteal 1 drop BOTH EYES DAILY PRN 11/07/15 02/11/19 History Tears 0.1%-0.3% Drop] Ferrous Sulfate [Feosol] 325 mg PO DAILY 11/07/15 02/11/19 History Hydrochlorothiazide [Hydrodiuril] 25 mg PO DAILY 11/07/15 02/11/19 History Losartan Potassium [Cozaar] 100 mg PO DAILY 11/07/15 02/11/19 History Metoprolol Tartrate [Lopressor] 25 mg PO BID 11/07/15 02/11/19 History Pantoprazole [Protonix] 40 mg PO DAILY 11/07/15 02/11/19 History Terazosin [Hytrin] 5 mg PO HS 11/07/15 02/11/19 History metFORMIN HCL [Glucophage] 850 mg PO TID 11/07/15 02/11/19 History Carbidopa/Levodopa [Sinemet CR 2 tab PO TID 05/05/16 02/11/19 History 50-200 mg] Cholecalciferol (Vitamin D3) 2,000 unit PO DAILY 09/10/17 02/11/19 History [Vitamin D3] DULoxetine HCL [Cymbalta] 40 mg PO BID 09/10/17 02/11/19 History traZODone HCL 150 mg PO HS PRN 09/10/17 02/11/19 History Amoxic-Pot Clav 875-125Mg 1 tab PO Q12HR 7 Days #14 tablet 02/11/19 Rx [Augmentin 875-125] Lidocaine 4% Cream [Lmx 4] 1 applic TOPICAL BID 02/11/19 02/11/19 History Meloxicam [Mobic] 7.5 mg PO BID 02/11/19 02/11/19 History rOPINIRole HCL [Requip Xl] 4 mg PO DAILY@1200 02/11/19 02/11/19 History rOPINIRole HCL [Requip Xl] 8 mg PO HS 02/11/19 02/11/19 History rOPINIRole HCL [Requip] 1 mg PO DAILY@1200 02/11/19 02/11/19 History rOPINIRole HCL [Requip] 2 mg PO HS 02/11/19 02/11/19 History Allergies Allergy/AdvReac Type Severity Reaction Status Date / Time latex Allergy Rash/Hives Verified 02/11/19 12:52 Tetanus Vaccines and Toxoid Allergy Unknown Verified 02/11/19 12:52 [Tetanus Vaccines & Toxoid] Childhood gabapentin AdvReac DEPRESSION Verified 02/11/19 12:52 lisinopril AdvReac Cough Verified 02/11/19 12:52 primidone AdvReac DROWSINESS Verified 02/11/19 12:52 tape AdvReac Rash/Hives Uncoded 06/30/18 13:36 Physical Examination - Vital Signs Vital Signs: Vital Signs Temp Pulse Resp BP Pulse Ox 02/11/19 12:00 76 18 117/62 96 02/11/19 09:41 98.3 F 92 16 134/66 97 Intake and Output 02/10/19 02/11/19 02/11/19 22:59 06:59 14:59 Other: Weight 90.265 kg On examination patient is an elderly male, in no distress. Patient is alert and awake, oriented to time place and person. Speech and language functions are normal. Attention and concentration fund of knowledge is adequate. On cranial examination pupils are surgical from previous cataract surgery, but round and reacting, visual hutson are full on confrontation, extraocular muscles are intact with no nystagmus. Face is symmetric and tongue protrudes the midline. Palatal elevation and sensation normal On muscle strength testing there is no pronator drift and the strength is normal in arms and legs distally and proximally. Reflexes are symmetric but, diminished and plantars downgoing. No ataxia for [id number] testing, tone and bulk of musc les normal. No carotid bruit or murmur, peripheral pulses present. Results [id number] on 01/12/2019. TSH normal. - Laboratory Findings CBC and BMP: 02/11/19 10:20 02/11/19 10:20 Abnormal Lab Findings: Abnormal Labs 02/11/19 02/11/19 10:20 10:20 RBC 4.22 L Hgb 12.9 L Hct 38.3 L Sodium 136 L Chloride 97 L Glucose 228 H Assessment and Plan Assessment: * Acute intermittent headache, mainly associated with Valsalva. Patient's computed tomography scan of the head showed near opacification of sphenoid sinusitis with an air-fluid level, severe ethmoid sinusitis and left maxillary sinusitis. Patient probably has acute sinusitis. * Diabetes, well controlled Plan: * Patient needs treatment for acute sinusitis. * May benefit from IV Rocephin, and perhaps should be discharged on Augmentin at least for 10-14 days. * May consider an ENT consult. * Thank you very much for allowing me to participate in care of your patient.
== END 2019-02-11 13:48 | disposition home or self-care (01) ==
LOC: EC 09:35
DX: R51 Headache (principal); R09.89 Other specified symptoms and signs involving the circulatory and respiratory systems; R05 Cough; E11.9 Type 2 diabetes mellitus without complications; K21.9 Gastro-esophageal reflux disease without esophagitis; E78.5 Hyperlipidemia, unspecified; I10 Essential (primary) hypertension; G25.81 Restless legs syndrome; G20 Parkinson's disease; Z87.891 Personal history of nicotine dependence; Z88.7 Allergy status to serum and vaccine; Z88.8 Allergy status to other drugs, medicaments and biological substances; Z91.040 Latex allergy status; Z91.048 Other nonmedicinal substance allergy status; Z79.1 Long term (current) use of non-steroidal anti-inflammatories (NSAID); Z79.82 Long term (current) use of aspirin; Z79.84 Long term (current) use of oral hypoglycemic drugs; Z79.899 Other long term (current) drug therapy
CPT/HCPCS: 99285; 96374; 96375 ×2; 96361; 36415; 93005; 80048; 85025; 85610; 85730; 71045; 70496; 70450; 70498; J2270; J1200; J2405; Q9967

== ENCOUNTER 2019-02-14 08:42 | Observation (INO) | payer OTHER, MEDICARE ==
--- NOTE | 2019-02-14 09:21 | ED ---
General Adult HPI - General Chief complaint: Upper Respiratory Infection Stated complaint: NIVIA Time Seen by Provider: 02/14/19 08:56 Source: patient, EMS, RN notes reviewed Mode of arrival: EMS Limitations: no limitations - History of Present Illness Initial comments: Patient is a pleasant 74-year-old male presenting to the emergency department with complaints of difficulty in breathing. Patient does admit to having a mild cough for the past few days. Patient states dyspnea started this morning. Patient does feel more short of breath with lying down. No leg pain or leg swelling. Patient does admit to having some mild tightness in his chest. No fevers. No history of similar symptoms previously. Patient states he has had some mild shortness of breath over the past year and a half since returning from a cruise. - Related Data Home Medications Medication Instructions Recorded Confirmed Aspirin EC [Ecotrin] 81 mg PO DAILY 11/07/15 02/11/19 Atorvastatin [Lipitor] 80 mg PO HS 11/07/15 02/11/19 Dextran 70/Hypromellose [Genteal 1 drop BOTH EYES DAILY PRN 11/07/15 02/11/19 Tears 0.1%-0.3% Drop] Ferrous Sulfate [Feosol] 325 mg PO DAILY 11/07/15 02/11/19 Hydrochlorothiazide [Hydrodiuril] 25 mg PO DAILY 11/07/15 02/11/19 Losartan Potassium [Cozaar] 100 mg PO DAILY 11/07/15 02/11/19 Metoprolol Tartrate [Lopressor] 25 mg PO BID 11/07/15 02/11/19 Pantoprazole [Protonix] 40 mg PO DAILY 11/07/15 02/11/19 Terazosin [Hytrin] 5 mg PO HS 11/07/15 02/11/19 metFORMIN HCL [Glucophage] 850 mg PO TID 11/07/15 02/11/19 Carbidopa/Levodopa [Sinemet CR 2 tab PO TID 05/05/16 02/11/19 50-200 mg] Cholecalciferol (Vitamin D3) 2,000 unit PO DAILY 09/10/17 02/11/19 [Vitamin D3] DULoxetine HCL [Cymbalta] 40 mg PO BID 09/10/17 02/11/19 traZODone HCL 150 mg PO HS PRN 09/10/17 02/11/19 Lidocaine 4% Cream [Lmx 4] 1 applic TOPICAL BID 02/11/19 02/11/19 Meloxicam [Mobic] 7.5 mg PO BID 02/11/19 02/11/19 rOPINIRole HCL [Requip Xl] 4 mg PO DAILY@1200 02/11/19 02/11/19 rOPINIRole HCL [Requip Xl] 8 mg PO HS 02/11/19 02/11/19 rOPINIRole HCL [Requip] 1 mg PO DAILY@1200 02/11/19 02/11/19 rOPINIRole HCL [Requip] 2 mg PO HS 02/11/19 02/11/19 Previous Rx's Medication Instructions Recorded Amoxic-Pot Clav 875-125Mg 1 tab PO Q12HR 7 Days #14 tablet 02/11/19 [Augmentin 875-125] Allergies Allergy/AdvReac Type Severity Reaction Status Date / Time latex Allergy Rash/Hives Verified 02/11/19 12:52 Tetanus Vaccines and Toxoid Allergy Unknown Verified 02/11/19 12:52 [Tetanus Vaccines & Toxoid] Childhood gabapentin AdvReac DEPRESSION Verified 02/11/19 12:52 lisinopril AdvReac Cough Verified 02/11/19 12:52 primidone AdvReac DROWSINESS Verified 02/11/19 12:52 tape AdvReac Rash/Hives Uncoded 06/30/18 13:36 Review of Systems ROS Statement: Those systems with pertinent positive or pertinent negative responses have been documented in the HPI. ROS Other: All systems not noted in ROS Statement are negative. Constitutional: Denies: fever Eyes: Denies: eye pain ENT: Denies: ear pain Respiratory: Reports: cough, dyspnea Cardiovascular: Reports: chest pain Endocrine: Denies: fatigue Gastrointestinal: Denies: abdominal pain Genitourinary: Denies: dysuria Musculoskeletal: Denies: back pain Skin: Denies: rash Neurological: Denies: weakness Past Medical History Past Medical History: Diabetes Mellitus, GERD/Reflux, Hyperlipidemia, Hypertension Additional Past Medical History / Comment(s): RLS, kidney stones, Parkinsons Disease History of Any Multi-Drug Resistant Organisms: None Reported Past Surgical History: Back Surgery, Cholecystectomy, Joint Replacement, Orthopedic Surgery Additional Past Surgical History / Comment(s): RT ARM SX. RT TKA. BACK SX X 2. KIDNEY STONES REMOVED. COLONOSCOPY, EGD. Cataract surgery Past Anesthesia/Blood Transfusion Reactions: No Reported Reaction Past Psychological History: PTSD Smoking Status: Former smoker Past Alcohol Use History: Occasional Past Drug Use History: None Reported - Past Family History Mother Family Medical History: No Reported History General Exam Limitations: no limitations General appearance: alert, in no apparent distress Head exam: Present: normocephalic Eye exam: Present: normal appearance, PERRL ENT exam: Present: normal oropharynx Neck exam: Present: normal inspection Respiratory exam: Present: normal lung sounds bilaterally. Absent: chest wall tenderness Cardiovascular Exam: Present: regular rate, normal rhythm Expanded Peripheral pulses: 2+: Radial (R), Radial (L), Posterior Tibialis (R), Posterior Tibialis (L), Dorsalis Pedis (R), Dorsalis Pedis (L) GI/Abdominal exam: Present: soft. Absent: tenderness Extremities exam: Present: normal inspection. Absent: pedal edema, calf tenderness Neurological exam: Present: alert Psychiatric exam: Present: normal affect, normal mood Skin exam: Present: normal color Course Vital Signs 02/14/19 08:52 Temperature 98.1 F Pulse Rate 69 Respiratory 16 Rate Blood Pressure 133/75 O2 Sat by Pulse 98 Oximetry EKG Findings - EKG Comments: EKG Findings:: Normal sinus rhythm 72. IA 162. QRS 80. QT 410. QTc 448. Normal axis. Normal QRS. No acute ST change. Medical Decision Making - Medical Decision Making Patient reevaluated and resting comfortably in bed. Patient and family updated on results and plan. Dr. Mason has been paged permission for this. Patient. - Lab Data Result diagrams: 02/14/19 09:25 02/14/19 09:25 Lab Results 02/14/19 02/14/19 02/14/19 Range/Units 09:25 09:25 09:25 WBC 6.7 (3.8-10.6) k/uL RBC 4.52 (4.30-5.90) m/uL Hgb 13.4 (13.0-17.5) gm/dL Hct 40.8 (39.0-53.0) % MCV 90.3 (80.0-100.0) fL MCH 29.7 (25.0-35.0) pg MCHC 32.9 (31.0-37.0) g/dL RDW 12.9 (11.5-15.5) % Plt Count 182 (150-450) k/uL Neutrophils % 60 % Lymphocytes % 26 % Monocytes % 5 % Eosinophils % 4 % Basophils % 1 % Neutrophils # 4.0 (1.3-7.7) k/uL Lymphocytes # 1.8 (1.0-4.8) k/uL Monocytes # 0.3 (0-1.0) k/uL Eosinophils # 0.3 (0-0.7) k/uL Basophils # 0.1 (0-0.2) k/uL PT 9.4 (9.0-12.0) sec INR 0.9 (<1.2) APTT 24.4 (22.0-30.0) sec D-Dimer 0.44 (<0.60) mg/L FEU Sodium 139 (137-145) mmol/L Potassium 4.0 (3.5-5.1) mmol/L Chloride 102 (98-107) mmol/L Carbon Dioxide 29 (22-30) mmol/L Anion Gap 8 mmol/L BUN 14 (9-20) mg/dL Creatinine 0.70 (0.66-1.25) mg/dL Est GFR (CKD-EPI)AfAm >90 (>60 ml/min/1.73 sqM) Est GFR (CKD-EPI)NonAf >90 (>60 ml/min/1.73 sqM) Glucose 91 (74-99) mg/dL Calcium 9.3 (8.4-10.2) mg/dL Magnesium 2.0 (1.6-2.3) mg/dL Total Bilirubin 0.8 (0.2-1.3) mg/dL AST 23 (17-59) U/L ALT 33 (21-72) U/L Alkaline Phosphatase 57 (38-126) U/L Troponin I (0.000-0.034) ng/mL NT-Pro-B Natriuret Pep pg/mL Total Protein 7.0 (6.3-8.2) g/dL Albumin 4.2 (3.5-5.0) g/dL 02/14/19 02/14/19 Range/Units 09:25 09:25 WBC (3.8-10.6) k/uL RBC (4.30-5.90) m/uL Hgb (13.0-17.5) gm/dL Hct (39.0-53.0) % MCV (80.0-100.0) fL MCH (25.0-35.0) pg MCHC (31.0-37.0) g/dL RDW (11.5-15.5) % Plt Count (150-450) k/uL Neutrophils % % Lymphocytes % % Monocytes % % Eosinophils % % Basophils % % Neutrophils # (1.3-7.7) k/uL Lymphocytes # (1.0-4.8) k/uL Monocytes # (0-1.0) k/uL Eosinophils # (0-0.7) k/uL Basophils # (0-0.2) k/uL PT (9.0-12.0) sec INR (<1.2) APTT (22.0-30.0) sec D-Dimer (<0.60) mg/L FEU Sodium (137-145) mmol/L Potassium (3.5-5.1) mmol/L Chloride (98-107) mmol/L Carbon Dioxide (22-30) mmol/L Anion Gap mmol/L BUN (9-20) mg/dL Creatinine (0.66-1.25) mg/dL Est GFR (CKD-EPI)AfAm (>60 ml/min/1.73 sqM) Est GFR (CKD-EPI)NonAf (>60 ml/min/1.73 sqM) Glucose (74-99) mg/dL Calcium (8.4-10.2) mg/dL Magnesium (1.6-2.3) mg/dL Total Bilirubin (0.2-1.3) mg/dL AST (17-59) U/L ALT (21-72) U/L Alkaline Phosphatase (38-126) U/L Troponin I <0.012 (0.000-0.034) ng/mL NT-Pro-B Natriuret Pep 37 pg/mL Total Protein (6.3-8.2) g/dL Albumin (3.5-5.0) g/dL - Radiology Data Radiology results: image reviewed (Chest x-ray shows chronic changes without acute process.) Disposition Clinical Impression: Chest pain, Dyspnea Disposition: ADMITTED IP TO THIS HOSP Is patient prescribed a controlled substance at d/c from ED?: No Referrals: [facility] [Primary Care Provider] - 1-2 days Decision Time: 11:14
--- NOTE | 2019-02-14 09:45 | XR ---
EXAMINATION TYPE: XR chest 2V DATE OF EXAM: 02/14/2019 COMPARISON: 02/11/2019 HISTORY: Difficulty breathing TECHNIQUE: Frontal and lateral views of the chest are obtained. FINDINGS: Chronic interstitial prominence is seen throughout. The lungs are improved in aeration in c omparison to the prior of 02/11/2019. There is no focal air space opacity, pleural effusion, or pneum othorax seen. The cardiac silhouette size is within normal limits. Diffuse osseous demineralization. The osseous structures are intact. Moderate multilevel degenerative disc disease of the thoracic sp ine. IMPRESSION: Redemonstration of chronic changes with no acute cardiopulmonary process. Improvement ae ration the lungs in comparison the prior.
[2019-02-14 09:49] LABS: Basophils # (A) 0.1 k/uL (0-0.2); Basophils % (A) 1 %; Eosinophils # (A) 0.3 k/uL (0-0.7); Eosinophils % (A) 4 %; HCT 40.8 % (39.0-53.0); HGB 13.4 gm/dL (13.0-17.5); Lymphocytes # (A) 1.8 k/uL (1.0-4.8); Lymphocytes % (A) 26 %; MCH 29.7 pg (25.0-35.0); MCHC 32.9 g/dL (31.0-37.0); MCV 90.3 fL (80.0-100.0); Mean Platelet Volume 8.2; Monocytes # (A) 0.3 k/uL (0-1.0); Monocytes % (A) 5 %; Neutrophils % (A) 60 %; Platelet Count 182 k/uL (150-450); RBC 4.52 m/uL (4.30-5.90); RDW 12.9 % (11.5-15.5); WBC 6.7 k/uL (3.8-10.6)
[2019-02-14 09:59] LABS: ALT 33 U/L (21-72); AST 23 U/L (17-59); African American GFR (CKD) >90 (>60 ml/min/1.73 sqM); Albumin 4.2 g/dL (3.5-5.0); Alkaline Phosphatase 57 U/L (38-126); Anion Gap 8 mmol/L; Blood Urea Nitrogen 14 mg/dL (9-20); Calcium 9.3 mg/dL (8.4-10.2); Carbon Dioxide 29 mmol/L (22-30); Chloride 102 mmol/L (98-107); Glucose 91 mg/dL (74-99); Non-African American GFR(CKD) >90 (>60 ml/min/1.73 sqM); Sodium 139 mmol/L (137-145); Total Bilirubin 0.8 mg/dL (0.2-1.3)
[2019-02-14 10:20] LABS: D-Dimer 0.44 mg/L FEU (<0.60); INR 0.9 (<1.2)
[2019-02-14 10:21] LABS: Partial Thromboplastin Time 24.4 sec (22.0-30.0); Prothrombin Time 9.4 sec (9.0-12.0)
[2019-02-14] MEDS ORDERED: NITROGLYCERIN SL TABS 0.4 MG TAB SUBLINGUAL PRN (11:14)
[2019-02-14] MEDS ORDERED: ASPIRIN 81 MG PO STA (11:14)
[2019-02-14] MEDS ORDERED: ACETAMINOPHEN TAB 500 MG TAB PO STA (11:15)
[2019-02-14] MEDS: NITROGLYCERIN OINT 1 INCH/GM PACKET TOPICAL SCH ×2 (11:57→16:33)
[2019-02-14 12:28] LABS: Glucose,Whole Blood 122 mg/dL (75-99)
--- NOTE | 2019-02-14 12:46 | P.CRDCN ---
History of Present Illness Consult date: 02/14/19 Chief complaint: Shortness of breath History of present illness: This is a pleasant 74-year-old gentleman with a past medical history significant for diabetes type 2, hypertension, dyslipidemia, and Parkinson disease, presented to the emergency room complaining of shortness of breath. The patient initially presented to the emergency room this past Thursday complaining of congestion and he was discharged home same day. This time, he presented complaining of shortness of breath started this morning. The patient describes exertional dyspnea without orthopnea or PND. He did not have any symptoms of chest pain or chest discomfort, dizziness, heart racing, heart fluttering, or syncope. No lower extremities edema. No history of coronary artery disease or congestive heart failure or cardiac arrhythmia and the patient never seen any gin operator in the past. He does have though very significant family history of coronary artery disease involving his father as well as his 2 brothers. The EKG showed sinus rhythm without any ST or T-wave abnormalities. The first set of troponin came in to be unremarkable. The d-dimer came in to be unremarkable. The chest x-ray showed no acute abnormalities. On examination, the patient seems to be euvolemic. The BNP was checked and came in to be also unremarkable. I did review the previous medical records and no indication that the patient was admitted to the hospital before. No cardiac workup was done before. Currently the patient is not under the care of the gin operator. On physical examination the patient does have very significant pansystolic murmur in the apical area. We'll obtain an echocardiogram for further clarification. Also will follow-up on serial cardiac enzymes. Past Medical History Past Medical History: Diabetes Mellitus, GERD/Reflux, Hyperlipidemia, Hypertension Additional Past Medical History / Comment(s): RLS, kidney stones, Parkinsons Disease History of Any Multi-Drug Resistant Organisms: None Reported Past Surgical History: Back Surgery, Cholecystectomy, Joint Replacement, Orthopedic Surgery Additional Past Surgical History / Comment(s): RT ARM SX. RT TKA. BACK SX X 2. KIDNEY STONES REMOVED. COLONOSCOPY, EGD. Cataract surgery Past Anesthesia/Blood Transfusion Reactions: No Reported Reaction Past Psychological History: PTSD Smoking Status: Former smoker Past Alcohol Use History: Occasional Past Drug Use History: None Reported - Past Family History Mother Family Medical History: No Reported History Medications and Allergies Home Medications Medication Instructions Recorded Confirmed Type Aspirin EC [Ecotrin] 81 mg PO DAILY 11/07/15 02/14/19 History Atorvastatin [Lipitor] 80 mg PO HS 11/07/15 02/14/19 History Dextran 70/Hypromellose [Genteal 1 drop BOTH EYES DAILY PRN 11/07/15 02/14/19 History Tears 0.1%-0.3% Drop] Ferrous Sulfate [Feosol] 325 mg PO DAILY 11/07/15 02/14/19 History Hydrochlorothiazide [Hydrodiuril] 25 mg PO DAILY 11/07/15 02/14/19 History Losartan Potassium [Cozaar] 100 mg PO DAILY 11/07/15 02/14/19 History Metoprolol Tartrate [Lopressor] 25 mg PO BID 11/07/15 02/14/19 History Pantoprazole [Protonix] 40 mg PO DAILY 11/07/15 02/14/19 History Terazosin [Hytrin] 5 mg PO HS 11/07/15 02/14/19 History metFORMIN HCL [Glucophage] 850 mg PO TID 11/07/15 02/14/19 History Carbidopa/Levodopa [Sinemet CR 2 tab PO TID 05/05/16 02/14/19 History 50-200 mg] Cholecalciferol (Vitamin D3) 2,000 unit PO DAILY 09/10/17 02/14/19 History [Vitamin D3] DULoxetine HCL [Cymbalta] 40 mg PO BID 09/10/17 02/14/19 History traZODone HCL 150 mg PO HS PRN 09/10/17 02/14/19 History Amoxic-Pot Clav 875-125Mg 1 tab PO Q12HR 7 Days #14 tablet 02/11/19 02/14/19 Rx [Augmentin 875-125] Lidocaine 4% Cream [Lmx 4] 1 applic TOPICAL BID 02/11/19 02/14/19 History Meloxicam [Mobic] 7.5 mg PO BID 02/11/19 02/14/19 History rOPINIRole HCL [Requip] 1 mg PO DAILY@1200 02/11/19 02/14/19 History rOPINIRole HCL [Requip] 2 mg PO HS 02/11/19 02/14/19 History Tadalafil 20 mg PO ONCE PRN 02/14/19 02/14/19 History clonazePAM [KlonoPIN] 1 mg PO HS PRN 02/14/19 02/14/19 History cycloSPORINE 0.05% OPHTH SOLN 1 drop BOTH EYES BID 02/14/19 02/14/19 History [Restasis] rOPINIRole HCL [Requip] 4 mg PO DAILY@1200 02/14/19 02/14/19 History rOPINIRole HCL [Requip] 8 mg PO HS 02/14/19 02/14/19 History Allergies Allergy/AdvReac Type Severity Reaction Status Date / Time latex Allergy Rash/Hives Verified 02/14/19 11:37 Tetanus Vaccines and Toxoid Allergy Unknown Verified 02/14/19 11:37 [Tetanus Vaccines & Toxoid] Childhood gabapentin AdvReac DEPRESSION Verified 02/14/19 11:37 lisinopril AdvReac Cough Verified 02/14/19 11:37 primidone AdvReac DROWSINESS Verified 02/14/19 11:37 tape AdvReac Rash/Hives Uncoded 06/30/18 13:36 Physical Exam Vitals: Vital Signs Temp Pulse Resp BP Pulse Ox 02/14/19 11:59 72 16 125/67 100 02/14/19 08:52 98.1 F 69 16 133/75 98 Intake and Output 02/13/19 02/14/19 02/14/19 22:59 06:59 14:59 Intake Total 120 Balance 120 Intake: Oral 120 Other: Weight 89.811 kg - Constitutional General appearance: no acute distress - Respiratory Respiratory: bilateral: CTA - Cardiovascular Rhythm: regular Heart sounds: normal: S1, S2 Abnormal Heart Sounds: systolic murmur Results 02/14/19 09:25 02/14/19 09:25 Cardiac Enzymes 02/14/19 02/14/19 Range/Units 09:25 09:25 AST 23 (17-59) U/L Troponin I <0.012 (0.000-0.034) ng/mL Coagulation 02/14/19 Range/Units 09:25 PT 9.4 (9.0-12.0) sec APTT 24.4 (22.0-30.0) sec CBC 02/14/19 Range/Units 09:25 WBC 6.7 (3.8-10.6) k/uL RBC 4.52 (4.30-5.90) m/uL Hgb 13.4 (13.0-17.5) gm/dL Hct 40.8 (39.0-53.0) % Plt Count 182 (150-450) k/uL Comprehensive Metabolic Panel 02/14/19 Range/Units 09:25 Sodium 139 (137-145) mmol/L Potassium 4.0 (3.5-5.1) mmol/L Chloride 102 (98-107) mmol/L Carbon Dioxide 29 (22-30) mmol/L BUN 14 (9-20) mg/dL Creatinine 0.70 (0.66-1.25) mg/dL Glucose 91 (74-99) mg/dL Calcium 9.3 (8.4-10.2) mg/dL AST 23 (17-59) U/L ALT 33 (21-72) U/L Alkaline Phosphatase 57 (38-126) U/L Total Protein 7.0 (6.3-8.2) g/dL Albumin 4.2 (3.5-5.0) g/dL Current Medications Generic Name Dose Route Start Last Admin Trade Name Alliq PRN Reason Stop Dose Admin Aspirin 325 mg 02/15/19 09:00 Aspirin PO DAILY PAULINA Nitroglycerin 0.4 mg 02/14/19 11:14 Nitrostat SUBLINGUAL Q5M PRN Chest Pain Nitroglycerin 1 inch 02/14/19 12:00 02/14/19 11:57 Nitro-Bid Oint TOPICAL 1 inch Q6HR PAULINA Administration Intake and Output 02/13/19 02/14/19 02/14/19 22:59 06:59 14:59 Intake Total 120 Balance 120 Intake: Oral 120 Other: Weight 89.811 kg Patient Weight 02/15/19 06:59 Weight 89.811 kg 02/14/19 09:25 02/14/19 09:25 Assessment and Plan Assessment: Assessment #1 shortness of breath with exertion. #2 diabetes type 2 #3 hypertension #4 dyslipidemia #5 Parkinson disease #6 significant family history of CAD Plan #1 rule out acute coronary syndrome. We'll follow-up on the serial cardiac enzymes #2 PE was ruled out. The d-dimer came in to be unremarkable #3 rule out severe CAD. If the cardiac enzymes came in to be unremarkable also chest obtaining stress test to rule out severe CAD. #4 obtain an echocardiogram was Doppler for further clarification of the etiology of the heart murmur #5 follow-up with the patient Thank you for allowing us participate in the patient's care
[2019-02-14] MEDS ORDERED: clonazePAM 1 MG TAB PO PRN (13:10)
[2019-02-14] MEDS ORDERED: traZODone HCL 100 MG TAB PO PRN (13:10)
[2019-02-14] MEDS ORDERED: TADALAFIL 20 MG PO PRN (13:10)
[2019-02-14] MEDS ORDERED: ARTIFICIAL TEARS-HYPROMELLOSE DROPS 15 ML BTL BOTH EYES PRN (13:10)
--- NOTE | 2019-02-14 13:11 | P.HPIM ---
History of Present Illness H&P Date: 02/14/19 Chief Complaint: Shortness of breath Mr. Perez is a 74-year-old male with a past medical history of hypertension, hyperlipidemia, diabetes mellitus, GERD, Parkinson's disease coming into the hospital with a chief complaint of difficulty in breathing. Patient states that he initially came in on Thursday to the emergency Department with a chief complaint of headaches and cold-like symptoms. At that visit patient had a CT of his head which was showing sinusitis so he was discharged home on Augmentin that he has been taking and he also got a CT angiogram of the brain that was negative. But this morning patient states that he woke up having difficulty in breathing. He denies having any orthopnea or PND. No lower extremity swelling. He complains of cough with productive white colored sputum. Denies having any palpitations. Patient quit smoking 37 years back. He smoked for 18 years a pack a day. He states that he has significant family history of coronary artery disease in his father and his 2 brothers. Patient denies having any dizziness or syncopal episodes. No complaints of headaches or blurring of vision. No speech abnormalities. No weakness of his extremities. Patient denies having any fevers chills or rigors. No abdominal pain nausea vomiting or diarrhea. No dysuria or hematuria. In the emergency room patient had EKG that was not showing any ST or T-wave abnormalities, troponin is less than 0.012, proBNP 37, d-dimer 0.44. He also had a chest x-ray done showing no acute cardiopulmonary process. Review of Systems REVIEW OF SYSTEMS: HEENT: Headaches that are getting better, mild cold-like symptoms with a nasal discharge PSYCH: No anxiety or depression NEURO:No c/o weakness of the extremties, No facial droop, No speech abnormalities. VASCULAR: no edema HEMATOLOGIC: No history of easy bleeding and bruising . No recent infections . RESPIRATORY: No cough INTEGUMENT: no rashes OPHTHALMOLOGIC: No blurry vision and no eye discharge : No dysuria or hematuria CARDIAC: No chest pain or paroxysmal nocturnal dyspnea MUSCULOSKELETAL : No Aches or pains in the joints or muscles. GI: No abdominal pain, Nausea or vomiting. No constipation or diarrhea. All 13 review of systems are negative except for ones mentioned above Past Medical History Past Medical History: Diabetes Mellitus, GERD/Reflux, Hyperlipidemia, Hypertension Additional Past Medical History / Comment(s): RLS, kidney stones, Parkinsons Disease History of Any Multi-Drug Resistant Organisms: None Reported Past Surgical History: Back Surgery, Cholecystectomy, Joint Replacement, Orthopedic Surgery Additional Past Surgical History / Comment(s): RT ARM SX. RT TKA. BACK SX X 2. KIDNEY STONES REMOVED. COLONOSCOPY, EGD. Cataract surgery Past Anesthesia/Blood Transfusion Reactions: No Reported Reaction Past Psychological History: PTSD Smoking Status: Former smoker Past Alcohol Use History: Occasional Past Drug Use History: None Reported - Past Family History Mother Family Medical History: No Reported History Medications and Allergies Home Medications Medication Instructions Recorded Confirmed Type Aspirin EC [Ecotrin] 81 mg PO DAILY 11/07/15 02/14/19 History Atorvastatin [Lipitor] 80 mg PO HS 11/07/15 02/14/19 History Dextran 70/Hypromellose [Genteal 1 drop BOTH EYES DAILY PRN 11/07/15 02/14/19 History Tears 0.1%-0.3% Drop] Ferrous Sulfate [Feosol] 325 mg PO DAILY 11/07/15 02/14/19 History Hydrochlorothiazide [Hydrodiuril] 25 mg PO DAILY 11/07/15 02/14/19 History Losartan Potassium [Cozaar] 100 mg PO DAILY 11/07/15 02/14/19 History Metoprolol Tartrate [Lopressor] 25 mg PO BID 11/07/15 02/14/19 History Pantoprazole [Protonix] 40 mg PO DAILY 11/07/15 02/14/19 History Terazosin [Hytrin] 5 mg PO HS 11/07/15 02/14/19 History metFORMIN HCL [Glucophage] 850 mg PO TID 11/07/15 02/14/19 History Carbidopa/Levodopa [Sinemet CR 2 tab PO TID 05/05/16 02/14/19 History 50-200 mg] Cholecalciferol (Vitamin D3) 2,000 unit PO DAILY 09/10/17 02/14/19 History [Vitamin D3] DULoxetine HCL [Cymbalta] 40 mg PO BID 09/10/17 02/14/19 History traZODone HCL 150 mg PO HS PRN 09/10/17 02/14/19 History Amoxic-Pot Clav 875-125Mg 1 tab PO Q12HR 7 Days #14 tablet 02/11/19 02/14/19 Rx [Augmentin 845-125] Lidocaine 4% Cream [Lmx 4] 1 applic TOPICAL BID 02/11/19 02/14/19 History Meloxicam [Mobic] 7.5 mg PO BID 02/11/19 02/14/19 History rOPINIRole HCL [Requip] 1 mg PO DAILY@1200 02/11/19 02/14/19 History rOPINIRole HCL [Requip] 2 mg PO HS 02/11/19 02/14/19 History Tadalafil 20 mg PO ONCE PRN 02/14/19 02/14/19 History clonazePAM [KlonoPIN] 1 mg PO HS PRN 02/14/19 02/14/19 History cycloSPORINE 0.05% OPHTH SOLN 1 drop BOTH EYES BID 02/14/19 02/14/19 History [Restasis] rOPINIRole HCL [Requip] 4 mg PO DAILY@1200 02/14/19 02/14/19 History rOPINIRole HCL [Requip] 8 mg PO HS 02/14/19 02/14/19 History Allergies Allergy/AdvReac Type Severity Reaction Status Date / Time latex Allergy Rash/Hives Verified 02/14/19 11:37 Tetanus Vaccines and Toxoid Allergy Unknown Verified 02/14/19 11:37 [Tetanus Vaccines & Toxoid] Childhood gabapentin AdvReac DEPRESSION Verified 02/14/19 11:37 lisinopril AdvReac Cough Verified 02/14/19 11:37 primidone AdvReac DROWSINESS Verified 02/14/19 11:37 tape AdvReac Rash/Hives Uncoded 06/30/18 13:36 Physical Exam Vitals: Vital Signs Temp Pulse Resp BP Pulse Ox 02/14/19 11:59 72 16 125/67 100 02/14/19 08:52 98.1 F 69 16 133/75 98 Intake and Output 02/13/19 02/14/19 02/14/19 22:59 06:59 14:59 Intake Total 120 Balance 120 Intake: Oral 120 Other: Weight 89.811 kg GEN. APPEARANCE: alert, in no apparent distress HEAD EXAM: atraumatic, normocephalic, normal inspection EYE EXAM: No pallor. No icterus. No thyromegaly. No JVD. ENT EXAM: Mucous membranes are moist. NECK EXAM: No JVD. RESPIRATORY EXAM: Bilateral breath sounds are positive. No wheeze or crackles. CARDIOVASCULAR EXAM: S1 and S2 heard. No additional sounds. GI/ABDOMINAL EXAM: Abdomen is soft. Nontender. No organomegaly. Normal bowel sounds. EXTREMITIES EXAM: No pedal edema. NEUROLOGICAL EXAM: alert, oriented X3, no focal deficits. PSYCHIATRIC EXAM: normal affect, normal mood SKIN EXAM: warm, dry, intact, normal color. Absent: rash Results CBC & Chem 7: 02/14/19 09:25 02/14/19 09:25 Labs: Abnormal Lab Results - Last 24 Hours (Table) 02/14/19 Range/Units 12:27 POC Glucose (mg/dL) 122 H (75-99) mg/dL Assessment and Plan Assessment: ASSESSMENT Shortness of breath - unclear etiology - rule out acute coronary syndrome, will check serial troponins, will get an echocardiogram Type 2 diabetes mellitus Hypertension Hyperlipidemia Parkinson's disease GERD/reflux History of nephrolithiasis Posttraumatic stress disorder PLAN: Patient has chest x-ray, d-dimer, EKG, first set of troponin negative. We will get serial troponins and an echocardiogram. Patient has been restarted on all his home medications. Further recommendations to follow depending on the progress of the patient.
[2019-02-14] MEDS: HYDROCHLOROTHIAZIDE 25 MG TAB PO SCH (14:03)
[2019-02-14] MEDS: cycloSPORINE 0.05% OPHTH 0.4 ML DROPERETTE BOTH EYES SCH ×2 (14:03→21:13)
[2019-02-14] MEDS: LOSARTAN 50 MG TAB PO SCH (14:03)
[2019-02-14] MEDS: METOPROLOL TARTRATE 25 MG TAB PO SCH ×2 (14:03→21:18)
[2019-02-14] MEDS: AMOXIC-POT CLAV 875-125MG 1 EACH TAB PO SCH ×2 (14:06→23:55)
[2019-02-14] MEDS: CARBIDOPA-LEVODOPA ER 50-200MG 1 EACH TABLET.ER PO SCH ×2 (15:45→21:16)
[2019-02-14] MEDS: DULoxetine HCL 20 MG CAPSULE.DR PO SCH ×2 (15:46→21:14)
[2019-02-14 16:56] LABS: Glucose,Whole Blood 100 mg/dL (75-99)
[2019-02-14 20:12] VITALS: RESP 18
[2019-02-14 20:50] LABS: Glucose,Whole Blood 127 mg/dL (75-99)
[2019-02-14] MEDS ORDERED: rOPINIRole HCL 4 MG TABLET PO SCH (21:00)
[2019-02-14] MEDS ORDERED: ATORVASTATIN 80 MG TAB PO SCH (21:00)
[2019-02-14] MEDS ORDERED: DOXAZOSIN 4 MG TAB PO SCH (21:00)
[2019-02-15] MEDS: NITROGLYCERIN OINT 1 INCH/GM PACKET TOPICAL SCH ×3 (00:04→11:52)
[2019-02-15 06:25] LABS: Glucose,Whole Blood 101 mg/dL (75-99)
[2019-02-15 06:27] LABS: Cholesterol 139 mg/dL (<200); HDL Cholesterol 36 mg/dL (40-60); LDL Cholesterol,Calculated 85 mg/dL (0-99); Triglycerides 91 mg/dL (<150)
[2019-02-15] MEDS ORDERED: PANTOPRAZOLE 40 MG TABLET PO SCH (07:30)
[2019-02-15] MEDS ORDERED: ASPIRIN 81 MG PO SCH (09:00)
[2019-02-15] MEDS ORDERED: FERROUS SULFATE 325 MG TAB PO SCH (09:00)
[2019-02-15] MEDS ORDERED: ASPIRIN 325 MG TAB PO SCH (09:00)
[2019-02-15] MEDS: cycloSPORINE 0.05% OPHTH 0.4 ML DROPERETTE BOTH EYES SCH (09:44)
[2019-02-15] MEDS: LOSARTAN 50 MG TAB PO SCH (09:45)
[2019-02-15] MEDS: CARBIDOPA-LEVODOPA ER 50-200MG 1 EACH TABLET.ER PO SCH (09:45)
[2019-02-15] MEDS: DULoxetine HCL 20 MG CAPSULE.DR PO SCH (09:46)
[2019-02-15] MEDS: AMOXIC-POT CLAV 875-125MG 1 EACH TAB PO SCH (09:47)
[2019-02-15] MEDS: METOPROLOL TARTRATE 25 MG TAB PO SCH (09:47)
[2019-02-15] MEDS: HYDROCHLOROTHIAZIDE 25 MG TAB PO SCH (09:54)
--- NOTE | 2019-02-15 11:12 | P.DS ---
Providers Date of admission: 02/14/19 11:14 Attending physician: Heike Mason Consults: 02/14/19 11:14 Consult Physician Urgent Consulting Provider: Kody Leal Consult Reason/Comments: cp, dyspnea Do you want consulting provider notified?: Yes Primary care physician: [facility] Course: patient came in with chest pain and some shortness of breath, patient denied any chest pain at this time. Patient had a recent stress test about 6 months ago which was negative. Patient shortness of breath resolved and the believes he shortness of breath is probably related to an anxiety episode. Patient was evaluated by cardiology. Echocardiogram is being obtained , looking for any valvular abnormalities. After they call if that looks okay patient probably can be discharged today if cleared by cardiology. Patient is not wheezing is being treated as an outpatientfor upper respiratory infection with Augmentin. There is no evidence of pneumonia at this time. PHYSICAL EXAMINATION: GENERAL: The patient is alert and oriented x3, not in any acute distress. Well developed, well nourished. HEENT: Pupils are round and equally reacting to light. EOMI. No scleral icterus. No conjunctival pallor. Normocephalic, atraumatic. No pharyngeal erythema. No thyromegaly. CARDIOVASCULAR: S1 and S2 present. No murmurs, rubs, or gallops. PULMONARY: Chest is clear to auscultation, no wheezing or crackles. ABDOMEN: Soft, nontender, nondistended, normoactive bowel sounds. No palpable organomegaly. MUSCULOSKELETAL: No joint swelling or deformity. EXTREMITIES: No cyanosis, clubbing, or pedal edema. NEUROLOGICAL: Gross neurological examination did not reveal any focal deficits. SKIN: No rashes. the rest of the details and hospitalization course please refer to documentation from Dr. Bobo From yesterday Plan - Discharge Summary Discharge Rx Participant: Yes New Discharge Prescriptions: Continue Pantoprazole [Protonix] 40 mg PO DAILY Hydrochlorothiazide [Hydrodiuril] 25 mg PO DAILY Atorvastatin [Lipitor] 80 mg PO HS Losartan Potassium [Cozaar] 100 mg PO DAILY Aspirin EC [Ecotrin Low Dose] 81 mg PO DAILY Dextran 70/Hypromellose [Genteal Tears 0.1%-0.3% Drop] 1 drop BOTH EYES DAILY PRN PRN Reason: Dry Eye(S) Terazosin [Hytrin] 5 mg PO HS Metoprolol Tartrate [Lopressor] 25 mg PO BID Ferrous Sulfate [Iron (65 MG Elemental)] 325 mg PO DAILY metFORMIN HCL [Glucophage] 850 mg PO TID Carbidopa/Levodopa [Sinemet CR 50-200 mg] 2 tab PO TID traZODone HCL 150 mg PO HS PRN PRN Reason: SLEEP Cholecalciferol (Vitamin D3) [Vitamin D3] 2,000 unit PO DAILY DULoxetine HCL [Cymbalta] 40 mg PO BID Lidocaine 4% Cream [Lmx 4] 1 applic TOPICAL BID Meloxicam [Mobic] 7.5 mg PO BID rOPINIRole HCL [Requip] 2 mg PO HS rOPINIRole HCL [Requip] 1 mg PO DAILY@1200 Amoxic-Pot Clav 875-125Mg [Augmentin 875-125] 1 tab PO Q12HR 7 Days #14 tablet cycloSPORINE 0.05% OPHTH SOLN [Restasis] 1 drop BOTH EYES BID clonazePAM [KlonoPIN] 1 mg PO HS PRN PRN Reason: RLS Tadalafil 20 mg PO ONCE PRN PRN Reason: E.D. rOPINIRole HCL [Requip] 8 mg PO HS rOPINIRole HCL [Requip] 4 mg PO DAILY@1200 Discharge Medication List Aspirin EC [Ecotrin Low Dose] 81 mg PO DAILY 11/07/15 [History] Atorvastatin [Lipitor] 80 mg PO HS 11/07/15 [History] Dextran 70/Hypromellose [Genteal Tears 0.1%-0.3% Drop] 1 drop BOTH EYES DAILY PRN 11/07/15 [History] Ferrous Sulfate [Iron (65 MG Elemental)] 325 mg PO DAILY 11/07/15 [History] Hydrochlorothiazide [Hydrodiuril] 25 mg PO DAILY 11/07/15 [History] Losartan Potassium [Cozaar] 100 mg PO DAILY 11/07/15 [History] Metoprolol Tartrate [Lopressor] 25 mg PO BID 11/07/15 [History] Pantoprazole [Protonix] 40 mg PO DAILY 11/07/15 [History] Terazosin [Hytrin] 5 mg PO HS 11/07/15 [History] metFORMIN HCL [Glucophage] 850 mg PO TID 11/07/15 [History] Carbidopa/Levodopa [Sinemet CR 50-200 mg] 2 tab PO TID 02/06/17 [History] Cholecalciferol (Vitamin D3) [Vitamin D3] 2,000 unit PO DAILY 09/10/17 [History] DULoxetine HCL [Cymbalta] 40 mg PO BID 09/10/17 [History] traZODone HCL 150 mg PO HS PRN 09/10/17 [History] Amoxic-Pot Clav 875-125Mg [Augmentin 875-125] 1 tab PO Q12HR 7 Days #14 tablet 02/11/19 [Rx] Lidocaine 4% Cream [Lmx 4] 1 applic TOPICAL BID 02/11/19 [History] Meloxicam [Mobic] 7.5 mg PO BID 02/11/19 [History] rOPINIRole HCL [Requip] 1 mg PO DAILY@1200 02/11/19 [History] rOPINIRole HCL [Requip] 2 mg PO HS 02/11/19 [History] Tadalafil 20 mg PO ONCE PRN 02/14/19 [History] clonazePAM [KlonoPIN] 1 mg PO HS PRN 02/14/19 [History] cycloSPORINE 0.05% OPHTH SOLN [Restasis] 1 drop BOTH EYES BID 02/14/19 [History] rOPINIRole HCL [Requip] 4 mg PO DAILY@1200 02/14/19 [History] rOPINIRole HCL [Requip] 8 mg PO HS 02/14/19 [History] Follow up Appointment(s)/Referral(s): Wu Park MD [STAFF PHYSICIAN] - 03/01/19 2:45 pm (Thursday -Please arrive 15mins early and bring drivers license and health insurance information with you) [facility]Clinic [Primary Care Provider] - 02/28/19 8:00 am (Thursday -earliest available appointment) Patient Instructions/Handouts: Chest Pain (DC) Discharge Disposition: HOME SELF-CARE
--- NOTE | 2019-02-15 11:38 | ECHOF ---
Referral Reason:murmur/ chest pain/ hx cardiomyopathy. MEASUREMENTS -------- HEIGHT: 172.7 cm WEIGHT: 89.8 kg BP: 134/72 RVIDd: 4.1 cm (< 3.3) IVSd: 1.2 cm (0.6 - 1.1) LVIDd: 4.4 cm (3.9 - 5.3) LVPWd: 1.4 cm (0.6 - 1.1) IVSs: 1.8 cm LVIDs: 2.3 cm LVPWs: 1.8 cm LAESV Index (A-L): 27.30 ml/m Ao Diam: 2.6 cm (2.0 - 3.7) AV Cusp: 1.4 cm (1.5 - 2.6) LA Diam: 4.1 cm (2.7 - 3.8) MV EXCURSION: 13.883 mm (> 18.000) MV EF SLOPE: 67 mm/s (70 - 150) EPSS: 0.7 cm MV E Yinka: 0.84 m/s MV DecT: 333 ms MV A Yinka: 0.85 m/s MV E/A Ratio: 0.99 AR PHT: 511 ms RAP: 5.00 mmHg RVSP: 35.40 mmHg FINDINGS -------- Sinus rhythm. This was a technically good study. The left ventricular size is normal. There is mild concentric left ventricular hypertrophy. Overa ll left ventricular systolic function is normal with, an EF between 55 - 60 %. The diastolic fillin g pattern is normal for the age of the patient 10.94. The right ventricle is mildly enlarged. Normal LA size by volume 22+/-6 ml/m2. The right atrium is mildly enlarged. Interatrial and interventricular septum intact. The aortic valve is trileaflet and appears structurally normal. There is mild aortic valve sclerosi s. There is moderate aortic regurgitation. There is no evidence of aortic stenosis. Mild mitral annular calcification present. Mild mitral regurgitation is present. Mild tricuspid regurgitation present. There is mild pulmonary hypertension. The right ventricular systolic pressure, as measured by Doppler, is 35.40mmHg. There is no pulmonic regurgitation present. The aortic root size is normal. IVC Not well visulized. There is no pericardial effusion. CONCLUSIONS -------- 1. Sinus rhythm. 2. This was a technically good study. 3. The left ventricular size is normal. 4. There is mild concentric left ventricular hypertrophy. 5. Overall left ventricular systolic function is normal with, an EF between 55 - 60 %. 6. The diastolic filling pattern is normal for the age of the patient 10.94 7. The right ventricle is mildly enlarged. 8. Normal LA size by volume 22+/-6 ml/m2. 9. The right atrium is mildly enlarged. 10. Interatrial and interventricular septum intact. 11. The aortic valve is trileaflet and appears structurally normal. 12. There is mild aortic valve sclerosis. 13. There is moderate aortic regurgitation. 14. There is no evidence of aortic stenosis. 15. Mild mitral annular calcification present. 16. Mild mitral regurgitation is present. 17. Mild tricuspid regurgitation present. 18. There is mild pulmonary hypertension. 19. The right ventricular systolic pressure, as measured by Doppler, is 35.40mmHg. 20. There is no pulmonic regurgitation present. 21. The aortic root size is normal. 22. IVC Not well visulized. 23. There is no pericardial effusion. DAIRY CLERK: Ashley Lan RDCS
[2019-02-15 11:58] LABS: Glucose,Whole Blood 119 mg/dL (75-99)
[2019-02-15 13:03] VITALS: BP 120/78; PULSE 68; TEMP 98
--- NOTE | 2019-02-15 15:50 | P.PN ---
Subjective Progress Note Date: 02/15/19 This is a pleasant 74-year-old gentleman with a past medical history significant for diabetes type 2, hypertension, dyslipidemia, and Parkinson disease, presented to the emergency room complaining of shortness of breath. The patient initially presented to the emergency room this past Thursday complaining of congestion and he was discharged home same day. This time, he presented complaining of shortness of breath started this morning. The patient describes exertional dyspnea without orthopnea or PND. He did not have any symptoms of chest pain or chest discomfort, dizziness, heart racing, heart fluttering, or syncope. No lower extremities edema. No history of coronary artery disease or congestive heart failure or cardiac arrhythmia and the patient never seen any phone engineer in the past. He does have though very significant family history of coronary artery disease involving his father as well as his 2 brothers. The EKG showed sinus rhythm without any ST or T-wave abnormalities. The first set of troponin came in to be unremarkable. The d-dimer came in to be unremarkable. The chest x-ray showed no acute abnormalities. On examination, the patient seems to be euvolemic. The BNP was checked and came in to be also unremarkable. I did review the previous medical records and no indication that the patient was admitted to the hospital before. No cardiac workup was done before. Cu rrently the patient is not under the care of the phone engineer. On physical examination the patient does have very significant pansystolic murmur in the apical area. We'll obtain an echocardiogram for further clarification. Also will follow-up on serial cardiac enzymes. 02/15/2019 Echocardiogram with Doppler study was performed which revealed a normal left ventricular systolic function. Moderate aortic regurgitation. Patient was seen and examined, denies any chest discomfort, breathing is overall stable. Troponins were negative 3. At pressure 120/70 with a heart rate in the 60s. Objective - Vital Signs Vital signs: Vital Signs Temp 98.0 F 02/15/19 11:50 Pulse 68 02/15/19 11:50 Resp 18 02/15/19 11:50 BP 120/78 02/15/19 11:50 Pulse Ox 95 02/15/19 11:50 Intake & Output 02/14/19 02/15/19 02/15/19 18:59 06:59 18:59 Intake Total 342 120 720 Balance 342 120 720 Weight 89.811 kg 90 kg Intake: Oral 342 120 720 Other: Voiding Method Toilet # Voids 1 1 # Bowel Movements 2 - Exam PHYSICAL EXAMINATION: GENERAL: 74-year-old gentleman in no acute distress at the time of my examination HEENT: Head is atraumatic, normocephalic. Pupils equal, round. Sclera anicteric. Conjunctiva are clear. Mucous membranes of the mouth are moist. Neck is supple. There is no elevated jugular venous pressure. No Carotid bruit is heard. HEART EXAMINATION: Heart S1 S2 1 systolic murmur. CHEST EXAMINATION: Lungs are clear to auscultation and precussion. No chest wall tenderness is noted on palpation or with deep breathing. ABDOMEN: Soft, nontender. Bowel sounds are heard. No organomegaly noted. EXTREMITIES: 2+ peripheral pulses with no evidence of peripheral edema and no calf tenderness noted. NEUROLOGIC patient is awake, alert and oriented X3. . - Labs CBC & Chem 7: 02/14/19 09:25 02/14/19 09:25 Labs: Abnormal Lab Results - Last 24 Hours (Table) 02/14/19 02/14/19 02/15/19 Range/Units 16:55 20:49 05:58 POC Glucose (mg/dL) 100 H 127 H (75-99) mg/dL HDL Cholesterol 36 L (40-60) mg/dL 02/15/19 02/15/19 Range/Units 06:24 11:55 POC Glucose (mg/dL) 101 H 119 H (75-99) mg/dL HDL Cholesterol (40-60) mg/dL Assessment and Plan Plan: Assessment and Plan #1 shortness of breath with exertion. #2 diabetes type 2 #3 hypertension #4 dyslipidemia #5 Parkinson disease #6 significant family history of CAD Plan From cardiology's perspective, patient may be able to be discharged home. We'll make him a follow-up appointment in the office post discharge. DNP note has been reviewed, I agree with a documented findings and plan of care. Patient was seen and examined.
== END 2019-02-15 13:45 | disposition home or self-care (01) ==
LOC: EC 08:42 → 3SCARD 11:14
PROVIDERS: ADMIT Hospitalist; ATTEND Hospitalist
DX: I35.1 Nonrheumatic aortic (valve) insufficiency (principal); E11.9 Type 2 diabetes mellitus without complications; K21.9 Gastro-esophageal reflux disease without esophagitis; E78.5 Hyperlipidemia, unspecified; I10 Essential (primary) hypertension; J32.9 Chronic sinusitis, unspecified; G25.81 Restless legs syndrome; G20 Parkinson's disease; F43.10 Post-traumatic stress disorder, unspecified; Z79.82 Long term (current) use of aspirin; Z79.899 Other long term (current) drug therapy; Z79.84 Long term (current) use of oral hypoglycemic drugs; Z91.040 Latex allergy status; Z88.7 Allergy status to serum and vaccine; Z88.8 Allergy status to other drugs, medicaments and biological substances; Z91.048 Other nonmedicinal substance allergy status; Z87.442 Personal history of urinary calculi; Z98.890 Other specified postprocedural states; Z90.49 Acquired absence of other specified parts of digestive tract; Z96.651 Presence of right artificial knee joint; Z98.49 Cataract extraction status, unspecified eye; Z87.891 Personal history of nicotine dependence; Z82.49 Family history of ischemic heart disease and other diseases of the circulatory system
CPT/HCPCS: 93005 ×2; 99285; 36415; 93306; 85379; 83880; 80061; 80053; 83735; 84484; 85025; 85610; 85730; 71046; G0378 ×2

== ENCOUNTER → 2019-04-27 | Outpatient (CLI) | payer OTHER ==
[2019-04-27 19:07] LABS: Magnesium 1.7 mg/dL (1.5-2.4); Phosphorus 3.6 mg/dL (2.4-5.1); Potassium 3.7 mmol/L (3.5-5.5)
== END | disposition home or self-care (01) ==
LOC: LABWHC1 13:37
PROVIDERS: ATTEND Psychiatry & Neurology Neurology
DX: G20 Parkinson's disease (principal)
CPT/HCPCS: 36415; 82310; 82607; 83735; 84100; 84132; 84295

== ENCOUNTER 2021-01-18 13:47 | Emergency (ER) | payer OTHER, MEDICARE ==
[2021-01-18 13:58] VITALS: RESP 18; TEMP 97
--- NOTE | 2021-01-18 15:51 | CT ---
EXAMINATION TYPE: CT lumbar spine wo con DATE OF EXAM: 01/18/2021 COMPARISON: None HISTORY: 75 year-old male trauma, Fall today with low back and bilat hip pain. TECHNIQUE: Contiguous axial scanning of the lumbar spine without IV contrast. Coronal and sagittal re constructions performed. CT DLP: 2313.2 mGycm Automated exposure control for dose reduction was used. FINDINGS: Vertebral body heights are preserved. Alignment is maintained. Status post L4-S1 posterior and interbody fusion. 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 Severe degenerative disc disease above the fusion at L3-L4. There is also ligamentum flavum thickenin g here. Assessment of the spinal canal here is limited due to artifact from the patient's hardware. T here may be a significant spinal canal stenosis at this level, axial image 52. Possible moderate left and mild right neuroforaminal stenosis. Additional variable mild neural foraminal narrowing. Incidental hepatic steatosis. IMPRESSION: 1. NO VERTEBRAL COMPRESSION COLLAPSE OR MALALIGNMENT. 2. L4-S1 POSTERIOR AND INTERBODY FUSION. 3. ADVANCED DEGENERATIVE DISC DISEASE WITH FACET ARTHROPATHY AND LIGAMENTUM FLAVUM THICKENING ABOVE T HE FUSION AT L3-L4. THERE MAY BE A SIGNIFICANT SPINAL CANAL STENOSIS AT THIS LEVEL. METAL ARTIFACT LI MITS THE ASSESSMENT. MODERATE LEFT AND MILD RIGHT NEUROFORAMINAL STENOSIS HERE. 4. BAASTRUP'S DISEASE.
--- NOTE | 2021-01-18 15:56 | CT ---
EXAMINATION TYPE: CT pelvis wo con DATE OF EXAM: 01/18/2021 COMPARISON: 05/21/2016 HISTORY: 75-year-old male Fall today with low back and bilat hip pain. TECHNIQUE: Contiguous axial scanning of the pelvis without IV contrast. Coronal and sagittal reconstr uctions performed. CT DLP: 2313.2 mGycm Automated exposure control for dose reduction was used. FINDINGS: Incidental hepatic steatosis. Mkyj-jg-[id number] stool. Prostate gland measures 5.7 cm wide. There is subtle soft tissue swelling and minimal fat stranding about the right iliopsoas. Moderate degenerative change of both hips. Degenerative bridging ankylosis at the bilateral superior SI joints. No acute fracture is seen. IMPRESSION: 1. MILD ANTERIOR UPPER RIGHT THIGH SOFT TISSUE SWELLING. THERE SEEMS TO BE SUBTLE SWELLING AND FAT ST RANDING AROUND THE RIGHT ILIOPSOAS. UNDERLYING MUSCLE STRAIN NOT EXCLUDED. CONSIDER MRI IF SYMPTOMS P ERSIST. 2. MODERATE BILATERAL HIP OA. NO ACUTE OSSEOUS ABNORMALITY SEEN.
--- NOTE | 2021-01-18 15:57 | XR ---
EXAMINATION TYPE: XR femur RT DATE OF EXAM: 01/18/2021 CLINICAL HISTORY: Pain TECHNIQUE: Two views of the left femur are obtained. COMPARISON: None FINDINGS: There is no acute fracture or dislocation seen in the left femur. Arthropathy of the hip j oint with hypertrophic change of the acetabulum. Vascular calcifications noted. Postsurgical change l eft knee. IMPRESSION: 1. Arthropathy of the hip and postsurgical change of the knee with no acute fracture.
--- NOTE | 2021-01-18 16:00 | XR ---
EXAMINATION TYPE: XR shoulder complete LT DATE OF EXAM: 01/18/2021 COMPARISON: NONE HISTORY: Pain TECHNIQUE: Three views are submitted. FINDINGS: The osseous structures are intact. There is no acute fracture or dislocation. AC joint arthropathy. IMPRESSION: 1. AC joint arthropathy.
[2021-01-18] MEDS ORDERED: predniSONE 50 MG TAB PO STA (16:37)
--- NOTE | 2021-01-18 16:45 | ED ---
Fall HPI - General Chief Complaint: Fall Stated Complaint: Fall-L leg,R hip injury Time Seen by Provider: 01/18/21 14:05 Source: patient, family Mode of arrival: ambulatory - History of Present Illness Initial Comments: 75-year-old male who states he fell about 3 feet off a ladder 2 days ago and he has left side B complains today of mostly left leg and left thigh area pain incr ease with movement but no loss of function is upper or lower extremities he does have decreased range of motion of right lower extremity and lower. He did fall states her abrasion to his left knee and left elbow. No head neck or overt back pain he has ever prior history of lumbar surgery MD Complaint: fall - Related Data Home Medications Medication Instructions Recorded Confirmed Aspirin EC [Ecotrin Low Dose] 81 mg PO DAILY 11/07/15 02/14/19 Atorvastatin [Lipitor] 80 mg PO HS 11/07/15 02/14/19 Dextran 70/Hypromellose [Genteal 1 drop BOTH EYES DAILY PRN 11/07/15 02/14/19 Tears 0.1%-0.3% Drop] Ferrous Sulfate [Iron (65 MG 325 mg PO DAILY 11/07/15 02/14/19 Elemental)] Losartan Potassium [Cozaar] 100 mg PO DAILY 11/07/15 02/14/19 Metoprolol Tartrate [Lopressor] 25 mg PO BID 11/07/15 02/14/19 Pantoprazole [Protonix] 40 mg PO DAILY 11/07/15 02/14/19 Terazosin [Hytrin] 5 mg PO HS 11/07/15 02/14/19 hydroCHLOROthiazide [Hydrodiuril] 25 mg PO DAILY 11/07/15 02/14/19 metFORMIN HCL [Glucophage] 850 mg PO TID 11/07/15 02/14/19 Carbidopa/Levodopa [Sinemet CR 2 tab PO TID 05/05/16 02/14/19 50-200 mg] Cholecalciferol (Vitamin D3) 2,000 unit PO DAILY 09/10/17 02/14/19 [Vitamin D3] DULoxetine HCL [Cymbalta] 40 mg PO BID 09/10/17 02/14/19 traZODone HCL 150 mg PO HS PRN 09/10/17 02/14/19 Lidocaine 4% Cream [Lmx 4] 1 applic TOPICAL BID 02/11/19 02/14/19 Meloxicam [Mobic] 7.5 mg PO BID 02/11/19 02/14/19 rOPINIRole HCL [Requip] 1 mg PO DAILY@1200 02/11/19 02/14/19 rOPINIRole HCL [Requip] 2 mg PO HS 02/11/19 02/14/19 Tadalafil 20 mg PO ONCE PRN 02/14/19 02/14/19 clonazePAM [KlonoPIN] 1 mg PO HS PRN 02/14/19 02/14/19 cycloSPORINE 0.05% OPHTH SOLN 1 drop BOTH EYES BID 02/14/19 02/14/19 [Restasis] rOPINIRole HCL [Requip] 4 mg PO DAILY@1200 02/14/19 02/14/19 rOPINIRole HCL [Requip] 8 mg PO HS 02/14/19 02/14/19 Previous Rx's Medication Instructions Recorded Amoxic-Pot Clav 875-125Mg 1 tab PO Q12HR 7 Days #14 tablet 02/11/19 [Augmentin 875-125] methylPREDNISolone Dose Pack 4 mg PO DIRECTED #21 tab 01/18/21 [Medrol Dose Pack] Allergies Allergy/AdvReac Type Severity Reaction Status Date / Time latex Allergy Rash/Hives Verified 01/18/21 13:56 Tetanus Vaccines and Toxoid Allergy Unknown Verified 01/18/21 13:56 [Tetanus Vaccines & Toxoid] Childhood gabapentin AdvReac DEPRESSION Verified 01/18/21 13:56 lisinopril AdvReac Cough Verified 01/18/21 13:56 primidone AdvReac DROWSINESS Verified 01/18/21 13:56 tape AdvReac Rash/Hives Uncoded 06/30/18 13:36 Review of Systems ROS Statement: Those systems with pertinent positive or pertinent negative responses have been documented in the HPI. ROS Other: All systems not noted in ROS Statement are negative. Past Medical History Past Medical History: Diabetes Mellitus, GERD/Reflux, Hyperlipidemia, Hypertension Additional Past Medical History / Comment(s): RLS, kidney stones, Parkinsons Disease History of Any Multi-Drug Resistant Organisms: None Reported Past Surgical History: Back Surgery, Cholecystectomy, Joint Replacement, Orthop edic Surgery Additional Past Surgical History / Comment(s): RT ARM SX. RT TKA. BACK SX X 2. KIDNEY STONES REMOVED. COLONOSCOPY, EGD. Cataract surgery Past Anesthesia/Blood Transfusion Reactions: No Reported Reaction Additional Past Anesthesia/Blood Transfusion Reaction / Comment(s): Never had a blood transfuson to his knowledge. Past Psychological History: PTSD Smoking Status: Never smoker Past Alcohol Use History: Occasional Past Drug Use History: None Reported - Past Family History Mother Additional Family Medical History / Comment(s): Pancreatic cancer. Father Family Medical History: Congestive Heart Failure (CHF) General Exam - General Exam Comments Initial Comments: This is a well-developed well-nourished awake alert oriented 3 male he does use a Brock Coma Scale of 15 Limitations: no limitations General appearance: alert, anxious Head exam: Present: atraumatic, normocephalic, normal inspection Eye exam: Present: normal appearance, PERRL, EOMI. Absent: scleral icterus, conjunctival injection, periorbital swelling ENT exam: Present: normal exam, mucous membranes moist Neck exam: Present: normal inspection, full ROM. Absent: tenderness, meningismus, lymphadenopathy Respiratory exam: Present: normal lung sounds bilaterally. Absent: respiratory distress, wheezes, rales, rhonchi, stridor Cardiovascular Exam: Present: regular rate, normal rhythm, normal heart sounds. Absent: systolic murmur, diastolic murmur, rubs, gallop, clicks GI/Abdominal exam: Present: soft, normal bowel sounds. Absent: distended, tenderness, guarding, rebound, rigid Extremities exam: Present: tenderness, normal capillary refill. Absent: full ROM (Tennis palpation over the right lower anterior thigh as well as right hip pain to palpation no bruising seen however decreased range of motion minimal evidence of sciatic outlet tenderness on palpation examination left side reveals mild left shoulder pain palpation with apparent full range of motion), pedal edema, joint swelling, calf tenderness Back exam: Present: normal inspection Neurological exam: Present: alert, oriented X3, CN II-XII intact Psychiatric exam: Present: normal affect, normal mood Skin exam: Present: warm, dry, intact, normal color. Absent: rash Course Vital Signs 01/18/21 13:56 Temperature 97 F L Pulse Rate 85 Respiratory 18 Rate Blood Pressure 117/69 O2 Sat by Pulse 96 Oximetry Medical Decision Making - Medical Decision Making I did discuss findings with the patient has he'll be placed on short course of steroids for anti-inflammatory. Tylenol for pain warm compresses he is a follow-up with his back surgeon and return when necessary - Radiology Data Radiology results: report reviewed ((Reviewed no evidence of acute processes evidence of spinal stenosis surgical scar changes. There is however evidence of a strain to the muscle on the right side please see the report), image reviewed Disposition Clinical Impression: Fall, Lumbar strain, Strain of right hip, Abrasion, Left shoulder strain Disposition: HOME SELF-CARE Condition: Good Instructions (If sedation given, give patient instructions): Fall Prevention for Older Adults (ED), Abrasion (ED), Contusion in Adults (ED) Prescriptions: methylPREDNISolone Dose Pack [Medrol Dose Pack] 4 mg PO DIRECTED #21 tab Is patient prescribed a controlled substance at d/c from ED?: No Referrals: [facility],Clinic [Primary Care Provider] - 1-2 days
[2021-01-18] MEDS ORDERED: IBUPROFEN 800 MG TAB PO STA (16:56)
[2021-01-18 17:03] VITALS: BP 115/78; PULSE 82
== END 2021-01-18 17:02 | disposition home or self-care (01) ==
LOC: EC 13:47
DX: S76.011A Strain of muscle, fascia and tendon of right hip, initial encounter (principal); S46.912A Strain of unspecified muscle, fascia and tendon at shoulder and upper arm level, left arm, initial encounter; S39.012A Strain of muscle, fascia and tendon of lower back, initial encounter; S80.212A Abrasion, left knee, initial encounter; S50.312A Abrasion of left elbow, initial encounter; E11.9 Type 2 diabetes mellitus without complications; K21.9 Gastro-esophageal reflux disease without esophagitis; E78.5 Hyperlipidemia, unspecified; I10 Essential (primary) hypertension; Z79.82 Long term (current) use of aspirin; Z79.84 Long term (current) use of oral hypoglycemic drugs; Z91.040 Latex allergy status; Z88.7 Allergy status to serum and vaccine; Z88.1 Allergy status to other antibiotic agents; Z87.442 Personal history of urinary calculi; Z90.49 Acquired absence of other specified parts of digestive tract; W11.XXXA Fall on and from ladder, initial encounter
CPT/HCPCS: 72131; 72192; 99284

== ENCOUNTER 2021-07-30 18:15 | Inpatient (IN) | payer OTHER, MEDICARE ==
[2021-07-30] MEDS ORDERED: SODIUM CHLORIDE 0.9% 1,000 ML IV STA ×2 (18:27)
--- NOTE | 2021-07-30 18:31 | ED ---
Chest Pain HPI - General Stated Complaint: chest pain Time Seen by Provider: 07/30/21 18:21 Source: EMS Mode of arrival: EMS Limitations: no limitations - History of Present Illness Initial Comments: This 76-year-old male presents with a complaint of some chest pain. He states that this came on this afternoon. It is pressure-like midsternal region with some radiation down his left arm. He denies any previously known cardiac disease. He states that his last stress test was 4-5 years ago and was normal. He's never had bruising no myocardial infarction or coronary artery disease. He denies any leg pain or swelling or history of DVT or PE. He does relate some moderate shortness of breath. In addition, he relates that he developed some bleeding from the inferior aspect of his scrotum after getting out of the shower earlier today. He states that he feels as though he lost fair amount of blood. States that he put a Band-Aid on it and it seemed to resolve. He also does present via EMS. They gave him aspirin prior to arrival. They also gave him nitroglycerin and his blood pressure dropped. He denies any other complaints or modifying factors. - Related Data Home Medications Medication Instructions Recorded Confirmed Aspirin EC [Ecotrin Low Dose] 81 mg PO DAILY 11/07/15 01/18/21 Atorvastatin [Lipitor] 80 mg PO HS 11/07/15 01/18/21 Ferrous Sulfate [Iron (65 MG 325 mg PO DAILY 11/07/15 01/18/21 Elemental)] Losartan Potassium [Cozaar] 100 mg PO DAILY 11/07/15 01/18/21 Metoprolol Tartrate [Lopressor] 25 mg PO BID 11/07/15 01/18/21 Pantoprazole [Protonix] 40 mg PO DAILY 11/07/15 01/18/21 Terazosin [Hytrin] 5 mg PO HS 11/07/15 01/18/21 hydroCHLOROthiazide [Hydrodiuril] 25 mg PO DAILY 11/07/15 01/18/21 metFORMIN HCL [Glucophage] 850 mg PO TID 11/07/15 01/18/21 Carbidopa/Levodopa [Sinemet CR 2 tab PO TID 05/05/16 01/18/21 50-200 mg] Cholecalciferol (Vitamin D3) 2,000 unit PO DAILY 09/10/17 01/18/21 [Vitamin D3] Meloxicam [Mobic] 7.5 mg PO BID 02/11/19 01/18/21 Tadalafil 20 mg PO ONCE PRN 02/14/19 01/18/21 cycloSPORINE 0.05% OPHTH SOLN 1 drop BOTH EYES BID 02/14/19 01/18/21 [Restasis] Cyanocobalamin (Vitamin B-12) 1,000 mcg PO DAILY 01/18/21 01/18/21 [Vitamin B-12] DULoxetine HCL [Cymbalta] 60 mg PO BID 01/18/21 01/18/21 Fluticasone Nasal David [Flonase 1 spray EA NOSTRIL DAILY 01/18/21 01/18/21 Nasal David] Lidocaine 5% Patch [Lidoderm] 1 patch TOPICAL DAILY 01/18/21 01/18/21 Loratadine 10 mg PO DAILY 01/18/21 01/18/21 Mirtazapine [Remeron] 7.5 mg PO HS PRN 01/18/21 01/18/21 Pregabalin [Lyrica] 75 mg PO HS 01/18/21 01/18/21 rOPINIRole HCL [Requip] 5 mg PO DAILY 01/18/21 01/18/21 rOPINIRole HCL [Requip] 10 mg PO HS 01/18/21 01/18/21 Previous Rx's Medication Instructions Recorded methylPREDNISolone Dose Pack 4 mg PO DIRECTED #21 tab 01/18/21 [Medrol Dose Pack] Allergies Allergy/AdvReac Type Severity Reaction Status Date / Time latex Allergy Rash/Hives Verified 01/18/21 17:00 Tetanus Vaccines and Toxoid Allergy Unknown Verified 01/18/21 17:00 [Tetanus Vaccines & Toxoid] Childhood gabapentin AdvReac DEPRESSION Verified 01/18/21 17:00 lisinopril AdvReac Cough Verified 01/18/21 17:00 primidone AdvReac DROWSINESS Verified 01/18/21 17:00 tape AdvReac Rash/Hives Uncoded 01/18/21 17:00 Review of Systems ROS Statement: Those systems with pertinent positive or pertinent negative responses have been documented in the HPI. ROS Other: All systems not noted in ROS Statement are negative. Past Medical History Past Medical History: Diabetes Mellitus, GERD/Reflux, Hyperlipidemia, Hypertension Additional Past Medical History / Comment(s): RLS, kidney stones, Parkinsons Disease History of Any Multi-Drug Resistant Organisms: None Reported Past Surgical History: Back Surgery, Cholecystectomy, Joint Replacement, Orthopedic Surgery Additional Past Surgical History / Comment(s): RT ARM SX. RT TKA. BACK SX X 2. KIDNEY STONES REMOVED. COLONOSCOPY, EGD. Cataract surgery Past Anesthesia/Blood Transfusion Reactions: No Reported Reaction Additional Past Anesthesia/Blood Transfusion Reaction / Comment(s): Never had a blood transfuson to his knowledge. Past Psychological History: PTSD Smoking Status: Never smoker Past Alcohol Use History: Occasional Past Drug Use History: None Reported - Past Family History Mother Additional Family Medical History / Comment(s): Pancreatic cancer. Father Family Medical History: Congestive Heart Failure (CHF) General Exam - General Exam Comments Initial Comments: GENERAL: The patient is well nourished and well hydrated. VITAL SIGNS: Heart rate, blood pressure, respiratory rate reviewed as recorded in nurse's notes. EYES: Pupils are round and reactive. Extraocular movements are intact. No conjunctival / lid redness or swelling. ENT: No external evidence of injury, swelling, or ecchymosis. Airway is patent. Throat is clear. NECK: Nontender. No swelling or evidence of injury. No subcutaneous emphysema. Trachea is midline. No thyroid mass. HEART: Regular rate and rhythm. Good peripheral pulses. LUNGS/CHEST: Breath sounds clear and equal bilaterally. No rales, rhonchi, or wheezes. No ecchymosis, subcutaneous emphysema, or tenderness. ABDOMEN: Abdomen soft without tenderness. No palpable masses or organomegaly. No peritoneal signs. No abdominal wall swelling or ecchymosis. Genitourinary: There is a small vein close to the surface on his left inferior scrotum. There is no current bleeding identified. There is a very slight scab formation. EXTREMITIES: No extremity tenderness. Normal muscle tone and function. No thoracolumbar tenderness. NEUROLOGIC: Sensation is grossly intact. Cranial nerve exam reveals face is symmetrical, tongue is midline, speech is clear. SKIN: No abrasions or ecchymosis is noted. No induration or masses noted. PSYCHIATRIC: Alert and oriented. Appropriate behavior and judgment. Limitations: no limitations Course Vital Signs 07/30/21 07/30/21 07/30/21 18:18 18:47 18:56 Temperature 98 F Pulse Rate 112 H 105 H 100 Respiratory 18 18 20 Rate Blood Pressure 84/51 88/46 96/45 O2 Sat by Pulse 98 99 98 Oximetry 07/30/21 19:08 Temperature Pulse Rate 96 Respiratory 18 Rate Blood Pressure 87/53 O2 Sat by Pulse 100 Oximetry Chest Pain MDM - MDM The patient was seen and examined. All diagnostics are reviewed. IV is established. His initial blood pressure was low and he is given IV fluids. EKG shows a sinus tachycardia at a rate of 107. There is no acute ST T-wave changes. There is no ST elevation. The [place] intervals 164, QRS duration is 83, and the QTC intervals 407. Chest x-ray did not show any acute process. Laboratory shows elevation of his renal function studies. He does not note any known history of kidney problems in the past. His troponin is slightly elevated as well. It is felt as though he may potentially have a non-ST elevation myocardial infarction. He does note that his blood pressure was low at home and he was talking to his nurse from [facility] and they told him to call 911. Upon arrival, it is still low but he did also receive supplemental nitroglycerin in route. He does receive IV fluid therapy and it does improve. Aspirin was given this prior to arrival. It is felt as though he would require admission to the hospital for further treatment. Case is discussed with Dr[facility] M[facility] and he is agreeable with admission. Cardiology will be consulted. Patient is feeling markedly improved on recheck. Disposition Clinical Impression: Chest pain, Dyspnea, Non-ST elevation myocardial infarction (NSTEMI), Scrotal bleeding, Hypotension, Anemia Disposition: ADMITTED IP TO THIS HOSP Condition: Fair Is patient prescribed a controlled substance at d/c from ED?: No Time of Disposition: 19:54 Decision Date: 07/30/21 Decision Time: :54
[2021-07-30 18:43] LABS: Basophils # (A) 0.1 k/uL (0-0.2); Basophils % (A) 1 %; Eosinophils # (A) 0.3 k/uL (0-0.7); Eosinophils % (A) 2 %; HCT 39.5 % (39.0-53.0); HGB 12.7 gm/dL (13.0-17.5); Lymphocytes # (A) 2.4 k/uL (1.0-4.8); Lymphocytes % (A) 18 %; MCH 29.5 pg (25.0-35.0); MCV 92.1 fL (80.0-100.0); Mean Platelet Volume 9.7; Monocytes # (A) 0.5 k/uL (0-1.0); Monocytes % (A) 4 %; Neutrophils # (A) 9.7 k/uL (1.3-7.7); Neutrophils % (A) 74 %; Platelet Count 190 k/uL (150-450); RBC 4.29 m/uL (4.30-5.90); RDW 13.8 % (11.5-15.5); WBC 13.2 k/uL (3.8-10.6)
[2021-07-30 18:52] LABS: Albumin 3.7 g/dL (3.5-5.0); Calcium 9.3 mg/dL (8.4-10.2); Magnesium 1.8 mg/dL (1.6-2.3); Potassium 3.5 mmol/L (3.5-5.1); Total Bilirubin 0.9 mg/dL (0.2-1.3); Total Protein 6.2 g/dL (6.3-8.2)
[2021-07-30 19:04] LABS: INR 0.9 (<1.2); Partial Thromboplastin Time 22.3 sec (22.0-30.0); Prothrombin Time 10.4 sec (9.0-12.0)
--- NOTE | 2021-07-30 19:21 | XR ---
EXAMINATION TYPE: XR chest 2V DATE OF EXAM: 07/30/2021 7:02 PM COMPARISON: Chest radiographs from 02/14/2019 TECHNIQUE: XR chest 2V Frontal and lateral views of the chest. CLINICAL INDICATION:Male, 76 years old with history of Chest Pain; FINDINGS: Lungs/Pleura: Bibasilar atelectasis. No evidence for pneumothorax pleural effusion or focal consolida tion. Pulmonary vascularity: Unremarkable. Heart/mediastinum: Cardiomediastinal silhouette is unremarkable. Musculoskeletal: No acute osseous pathology. IMPRESSION: Basilar atelectasis without acute cardiopulmonary disease/process.
[2021-07-30] MEDS ORDERED: ACETAMINOPHEN TAB 325 MG TAB PO PRN (19:58)
[2021-07-30] MEDS ORDERED: SODIUM CHLORIDE 0.9% 500 ML 500 ML IV ONE (20:15)
[2021-07-30] MEDS ORDERED: MIRTAZAPINE 15 MG TAB PO PRN (22:04)
[2021-07-30] MEDS ORDERED: HEPARIN SODIUM 1,000 UN/ML (10ML VL) IV PRN (22:14)
[2021-07-30] MEDS ORDERED: HEPARIN SODIUM 1,000 UN/ML (10ML VL) IV ONE (22:14)
[2021-07-30] MEDS ORDERED: ROPINIROLE HCL 5 MG PO SCH (22:15)
--- NOTE | 2021-07-30 22:27 | P.HPIM ---
History of Present Illness H&P Date: 07/30/21 Chief Complaint: chest painpain 76-year-old male with history of diabetes mellitus, hypertension, Patient comes in after sudden onset chest pain described as midsternal pressure- like in 10 in severity radiating to the left arm associated with feeling dizzy and lightheaded profuse sweating palpitations and shortness of breath denies any nausea or vomiting she denies any trauma to the chest. Patient was moving some boxes when this happened he denies any prior episodes of similar complaints. He had stress test done 5 years ago is reported to be normal. Other lites he describes himself to be in good health This started, after he had an episode of scrotal bleeding this morning which happened after showering he said the was a decent amount of bleed that was controlled later and was able to put a Band-Aid in his scrotum skin. He denies any eating tendencies denies any GI bleeding denies any recent travel or hospitalization denies any history of blood clots. As he was experiencing the symptoms described above he grew to about his heart condition he decided to call EMS. Patient also recalls having Covid about 10 days ago around however it was a mild infection did not require any medications or hospitalization. EMS offered the patient a pill of aspirin and nitroglycerin however his blood pressure dropped after the nitroglycerin and he was feeling even more lightheaded and having headaches. Currently patient denies any active chest pain laying comfortable in bed complaining of abdominal distention and bloating Workup in the ED showed elevated white count hemoglobin 12.7 acute kidney injury with creatinine 1.7 slightly elevated troponin Patient continues to be borderline hypotensive with systolic in the mid 90s Chest x-ray showed atelectasis no other acute changes Most recent echo from 2019 shows a left ventricular ejection fraction 5560 percent Review of Systems Pertinent positives as noted in HPI. All other systems were reviewed and are negative Past Medical History Past Medical History: Diabetes Mellitus, GERD/Reflux, Hyperlipidemia, Hypertension Additional Past Medical History / Comment(s): RLS, kidney stones, Parkinsons Disease History of Any Multi-Drug Resistant Organisms: None Reported Past Surgical History: Back Surgery, Cholecystectomy, Joint Replacement, Orthopedic Surgery Additional Past Surgical History / Comment(s): RT ARM SX. RT TKA. BACK SX X 2. KIDNEY STONES REMOVED. COLONOSCOPY, EGD. Cataract surgery Past Anesthesia/Blood Transfusion Reactions: No Reported Reaction Additional Past Anesthesia/Blood Transfusion Reaction / Comment(s): Never had a blood transfuson to his knowledge. Past Psychological History: PTSD Smoking Status: Never smoker Past Alcohol Use History: Occasional Past Drug Use History: None Reported - Past Family History Mother Additional Family Medical History / Comment(s): Pancreatic cancer. Father Family Medical History: Congestive Heart Failure (CHF) Medications and Allergies Home Medications Medication Instructions Recorded Confirmed Type Aspirin EC [Ecotrin Low Dose] 81 mg PO DAILY 11/07/15 07/30/21 History Atorvastatin [Lipitor] 80 mg PO HS 11/07/15 07/30/21 History Ferrous Sulfate [Iron (65 MG 325 mg PO BID 11/07/15 07/30/21 History Elemental)] Losartan Potassium [Cozaar] 100 mg PO DAILY 11/07/15 07/30/21 History Metoprolol Tartrate [Lopressor] 25 mg PO BID 11/07/15 07/30/21 History Pantoprazole [Protonix] 40 mg PO DAILY 11/07/15 07/30/21 History hydroCHLOROthiazide [Hydrodiuril] 25 mg PO DAILY 11/07/15 07/30/21 History metFORMIN HCL [Glucophage] 850 mg PO TID 11/07/15 07/30/21 History Carbidopa/Levodopa [Sinemet CR 2 tab PO TID 05/05/16 07/30/21 History 50-200 mg] Meloxicam [Mobic] 7.5 mg PO BID 02/11/19 07/30/21 History Tadalafil 20 mg PO DAILY PRN 02/14/19 07/30/21 History Cyanocobalamin (Vitamin B-12) 1,000 mcg PO DAILY 01/18/21 07/30/21 History [Vitamin B-12] DULoxetine HCL [Cymbalta] 60 mg PO BID 01/18/21 07/30/21 History Loratadine 10 mg PO DAILY 01/18/21 07/30/21 History Mirtazapine [Remeron] 7.5 mg PO HS PRN 01/18/21 07/30/21 History Pregabalin [Lyrica] 75 mg PO ACHS 01/18/21 07/30/21 History rOPINIRole HCL [Requip] 5 mg PO TID 01/18/21 07/30/21 History Cholecalciferol [Vitamin D3 (25 50 mcg PO DAILY 07/30/21 07/30/21 History Mcg = 1000 Iu)] Lifitegrast [Xiidra] 1 applic BOTH EYES BID 07/30/21 07/30/21 History Tamsulosin [Flomax] 0.4 mg PO HS 07/30/21 07/30/21 History rOPINIRole HCL [Requip] 3 mg PO TID 07/30/21 07/30/21 History Allergies Allergy/AdvReac Type Severity Reaction Status Date / Time latex Allergy Rash/Hives Verified 07/30/21 21:38 Tetanus Vaccines and Toxoid Allergy Unknown Verified 07/30/21 21:38 [Tetanus Vaccines & Toxoid] Childhood gabapentin AdvReac DEPRESSION Verified 07/30/21 21:38 lisinopril AdvReac Cough Verified 07/30/21 21:38 primidone AdvReac DROWSINESS Verified 07/30/21 21:38 tape AdvReac Rash/Hives Uncoded 01/18/21 17:00 Physical Exam Vitals: Vital Signs Temp Pulse Resp BP Pulse Ox 07/30/21 21:20 86 16 107/57 97 07/30/21 21:06 103 H 98 07/30/21 20:11 90/62 07/30/21 19:47 94 16 88/51 98 07/30/21 19:08 96 18 87/53 100 07/30/21 18:56 100 20 96/45 98 07/30/21 18:47 105 H 18 88/46 99 07/30/21 18:18 98 F 112 H 18 84/51 98 Intake and Output 07/30/21 07/30/21 07/30/21 06:59 14:59 22:59 Other: Weight 91.172 kg Constitutional: No acute distress, conversant, pleasant Eyes: Anicteric sclerae, moist conjunctiva, Pupils equal round reactive to light ENMT: NC/AT Oropharynx clear, no erythema, or exudates Neck: Supple, FROM, no masses, or JVD No carotid bruits No thyromegaly Lungs: Clear to auscultation Clear to percussion Normal respiratory effort, no accessory muscle use Cardiovascular: Heart regular in rate and rhythm, No murmurs, gallops, or rubs No peripheral edema Abdominal: Soft, moderately distended increased tympanic noted to percussion bowel sounds positive Nontender, no guarding, rebound or rigidity Abdomen moving with respiration No hepatomegaly, No splenomegaly No palpable mass No abdominal wall hernia noted Genital exam deferred however noted by ED doctor that patient had a superficial vein close to the surface on his scrotum with some evidence of prior bleeding and minimal scabbing no active bleeding at this time no significant ecchymosis, or swelling Skin: Normal temperature, tone, texture, turgor No induration No subcutaneous nodules No rash, lesions No ulcers Extremities: No digital cyanosis No clubbing Pedal pulses intact and symmetrical Radial pulses intact and symmetrical No calf tenderness Psychiatric: Alert and oriented to person, place and time Appropriate affect fair judgement Neuro Muscles Strength 4/5 in all 4 extremities Sensation to light touch grossly present throughout Cranial nerves II-XII grossly intact No focal sensory deficits Lymphatics: no palpable cervical or supraclavicular , or inguinal lymph nodes Results CBC & Chem 7: 07/30/21 18:34 07/30/21 18:34 Labs: Abnormal Lab Results - Last 24 Hours (Table) 07/30/21 07/30/21 07/30/21 Range/Units 18:34 18:34 18:34 WBC 13.2 H (3.8-10.6) k/uL RBC 4.29 L (4.30-5.90) m/uL Hgb 12.7 L (13.0-17.5) gm/dL Neutrophils # 9.7 H (1.3-7.7) k/uL BUN 22 H (9-20) mg/dL Creatinine 1.74 H (0.66-1.25) mg/dL Glucose 183 H (74-99) mg/dL Troponin I 0.035 H* (0.000-0.034) ng/mL Total Protein 6.2 L (6.3-8.2) g/dL Assessment and Plan Assessment: Atypical chest pain NSTEMI Plan Trend troponins Heparin drip Aspirin, statin Nitro when necessary Cardiac monitoring Monitor vital signs Cardiology consult EKG no acute ST changes Chest x-ray atelectasis no other acute changes Acute kidney injury Avoid nephrotoxic meds Hold diuretics and losartan Gentle IV fluid hydration Monitor urine output Leukocytosis without evidence of infection at this time, afebrile Continue reactive secondary to above Chronic conditions Hypertension currently hypotensive we will hold antihypertensive meds continue with metoprolol in the morning Diabetes mellitus hold oral hypoglycemic agents continue with insulin sliding scale Parkinson disease continue with home meds Restless leg syndrome continue with Requip and pregabalin DVT prophylaxis currently on heparin drip per [facility] Full code Anticipated length of stay more than 2 midnights
[2021-07-30] MEDS: INSULIN ASPART (NovoLOG) 100 UNIT/ML VIAL SQ SCH (22:58)
[2021-07-30 22:59] LABS: Glucose,Whole Blood 112 mg/dL (75-99)
[2021-07-30] MEDS: rOPINIRole HCL 4 MG TABLET PO SCH (23:00)
[2021-07-30] MEDS: DULoxetine HCL 60 MG CAPSULE.DR PO SCH (23:00)
[2021-07-30] MEDS: ATORVASTATIN 80 MG TAB PO SCH (23:00)
[2021-07-30] MEDS: CARBIDOPA-LEVODOPA ER 50-200MG 1 EACH TABLET.ER PO SCH (23:00)
[2021-07-30] MEDS: HEPARIN SOD,PORK IN 0.45% NACL 25,000 UNIT in 0.45% NACL 1 250ML.BAG IV SCH (23:02)
[2021-07-31] MEDS ORDERED: bisacodyL 10 MG SUPP RECTAL STA (00:23)
[2021-07-31] MEDS: SIMETHICONE 80 MG CHEWABLE PO SCH ×5 (00:36→21:02)
[2021-07-31 03:25] LABS: Glucose,Whole Blood 107 mg/dL (75-99)
[2021-07-31 05:41] LABS: Partial Thromboplastin Time 34.6 sec (22.0-30.0); Prothrombin Time 10.5 sec (9.0-12.0)
[2021-07-31 05:52] LABS: Glucose,Whole Blood 103 mg/dL (75-99)
[2021-07-31] MEDS: INSULIN ASPART (NovoLOG) 100 UNIT/ML VIAL SQ SCH ×4 (06:03→21:03)
[2021-07-31] MEDS: PREGABALIN 75 MG CAP PO SCH ×4 (06:08→21:00)
[2021-07-31] MEDS: PANTOPRAZOLE 40 MG TABLET PO SCH (06:08)
[2021-07-31] MEDS ORDERED: HEPARIN SODIUM,PORCINE 2,500 UNIT in SODIUM CHLORIDE 0.9% 250 ML IRRIGATION PRN (07:00)
[2021-07-31] MEDS ORDERED: HEPARIN SODIUM,PORCINE 10,000 UNIT in SODIUM CHLORIDE 0.9% 1,000 ML IRRIGATION PRN (07:00)
[2021-07-31] MEDS: rOPINIRole HCL 4 MG TABLET PO SCH ×3 (07:39→21:02)
[2021-07-31] MEDS: DULoxetine HCL 60 MG CAPSULE.DR PO SCH ×2 (07:39→20:59)
[2021-07-31] MEDS: METOPROLOL TARTRATE 25 MG TAB PO SCH ×2 (07:40→21:00)
[2021-07-31] MEDS: CARBIDOPA-LEVODOPA ER 50-200MG 1 EACH TABLET.ER PO SCH ×3 (07:40→21:01)
[2021-07-31] MEDS ORDERED: ALPRAZolam 0.25 MG TAB PO PRN (08:26)
[2021-07-31] MEDS ORDERED: ALPRAZolam 0.5 MG TAB PO PRN (08:26)
[2021-07-31] MEDS ORDERED: NITROGLYCERIN SL TABS 0.4 MG TAB SUBLINGUAL PRN (08:26)
[2021-07-31 08:48] LABS: HCT 37.9 % (39.0-53.0); HGB 12.1 gm/dL (13.0-17.5); MCH 29.9 pg (25.0-35.0); MCHC 31.9 g/dL (31.0-37.0); MCV 93.8 fL (80.0-100.0); Mean Platelet Volume 10.7; Platelet Count 177 k/uL (150-450); RBC 4.03 m/uL (4.30-5.90); RDW 14.5 % (11.5-15.5); WBC 8.8 k/uL (3.8-10.6)
[2021-07-31] MEDS: SODIUM CHLORIDE 0.9% 1,000 ML in EMPTY BAG 1 BAG IV SCH ×2 (08:59→17:26)
[2021-07-31] MEDS ORDERED: ASPIRIN 325 MG TAB PO SCH (09:00)
[2021-07-31] MEDS ORDERED: ENOXAPARIN 40 MG/0.4 ML SYRINGE SQ SCH (09:00)
[2021-07-31] MEDS ORDERED: NON FORMULARY DRUG (Losartan Potassium [Cozaar] 100 MG Tablet) PO SCH (09:00)
[2021-07-31 10:05] LABS: Chol/HDL Ratio 4.19 Ratio; LDL Cholesterol,Calculated 104.1 mg/dL (0.0-131.0)
[2021-07-31 11:34] LABS: Glucose,Whole Blood 127 mg/dL (75-99)
--- NOTE | 2021-07-31 11:40 | CA ---
Transthoracic Echo Report Name: Jr Perez Age: 76 Gender: M : 1945 Exam Date: 07/31/2021 09:26 Exam Location: [facility] Ht (in): 68 Wt (lb): 201 Ordering Physician: Hadley Case DO Attending/Referring Phys: [id number], Evie Spring Bender Ashley Lan, RDJUAN PABLO Procedure CPT: Indications: cp and sob Cardiac Hx: Technical Quality: Fair Contrast 1: Total Dose (mL): Contrast 2: Total Dose (mL): MEASUREMENTS (Male / Female) Normal Values 2D ECHO LV Diastolic Diameter PLAX 3.8 cm 4.2 - 5.9 / 3.9 - 5.3 cm LV Systolic Diameter PLAX 2.4 cm IVS Diastolic Thickness 1.5 cm 0.6 - 1.0 / 0.6 - 0.9 cm LVPW Diastolic Thickness 1.6 cm 0.6 - 1.0 / 0.6 - 0.9 cm LV Relative Wall Thickness 0.8 RV Internal Dim ED PLAX 3.8 cm LA Volume 67.6 cm??? 18 - 58 / 22 - 52 cm??? M-MODE Aortic Root Diameter MM 3.3 cm LA Systolic Diameter MM 3.8 cm LA Ao Ratio MM 1.2 AV Cusp Separation MM 2.0 cm DOPPLER AV Peak Velocity 190.0 cm/s AV Peak Gradient 14.4 mmHg AV Mean Velocity 131.7 cm/s AV Mean Gradient 7.8 mmHg AV Velocity Time Integral 37.6 cm AI Peak Velocity 464.9 cm/s AI Peak Gradient 86.4 mmHg AI Pressure Half Time 441.1 ms LVOT Peak Velocity 154.5 cm/s LVOT Peak Gradient 9.5 mmHg MV Area PHT 2.7 cm??? Mitral E Point Velocity 110.3 cm/s Mitral A Point Velocity 132.2 cm/s Mitral E to A Ratio 0.8 MV Deceleration Time 280.7 ms TR Peak Velocity 259.6 cm/s TR Peak Gradient 27.0 mmHg Right Ventricular Systolic Press 31.8 mmHg FINDINGS Left Ventricle Normal left ventricular systolic function with no obvious regional wall motion abnormalities. Normal left ventricular diastolic filling pattern. Left ventricular cavity size normal. Moderately increased left ventricular wall thickness. Left ventricular ejection fraction is estimated at 55-60 %. Right Ventricle Mild right ventricular dilatation. Right ventricular systolic pressure within normal limits. Right Atrium Normal right atrial size. Left Atrium Mildly increased left atrial volume. Mildly increased left atrial area. No evidence for an atrial septal defect. Mitral Valve Mitral annular calcification. Mild mitral regurgitation. Aortic Valve Trileaflet aortic valve. Diffuse thickening (sclerosis) of the aortic valve cusps without reduced excursion. Mild aortic regurgitation. Tricuspid Valve Mild tricuspid regurgitation. Pulmonic Valve Trace pulmonic regurgitation. Pericardium No pericardial effusion. Aorta Aortic root and proximal ascending aorta not well visualized. CONCLUSIONS Left ventricle hypertrophy with preserved LV systolic function Previewed by: Dr. Kyle Garcia MD (Electronically Signed) Final Date: 31 Jul 2021 11:39
--- NOTE | 2021-07-31 11:50 | P.CRDCN ---
History of Present Illness History of present illness: HISTORY OF PRESENTING ILLNESS This is a pleasant 76-year-old male past medical history significant for hypertension, type 2 diabetes, dyslipidemia, covid-19 infection 07/19. She does not follow with a creative services manager. We have been asked to see in consultation for chest pain. Patient presents to the emergency department with complaints of chest discomfort and low blood pressure. Patient states yesterday he was walking up the stairs. He had an episode of shortness of breath, diaphoresis a nd chest discomfort across his bilateral chest. He describes it as a chest pressure. It was exertional. He had radiation to his left shoulder. He had associated shortness of breath, dizziness. He states he checked his blood pressure and his SBP was in the 60s. He called a provider and was told to call EMS. called EMS and patient was transported to the ER. He denies any history of coronary artery disease, NE, stroke. He denies any tobacco use. Occasional alcohol use. Denies any family history of coronary artery disease. DIAGNOSTICS -EKG reveals sinus tachycardia, heart rate 107, nonspecific ST abnormalities -Telemetry tracings indicate sinus mechanism, heart rate 70s80s -Chest xray no acute cardiopulmonary process, basilar atelectasis. -Echocardiogram revealed an EF of 5560 percent, moderately increased left ventricular wall thickness -Laboratory reviewed, troponin 0.035-->0.06--> 0.063. WBC 8.8, hemoglobin 12.1, platelets 177, d-dimer negative, sodium 137, potassium 2.5, BUN 22, serum creatinine 1.74, magnesium 1.8 -Current home cardiac medications include metoprolol titrate 25 mg twice a day, losartan 100 mg daily, hydrochlorothiazide 25 mg daily, atorvastatin 80 mg nightly, aspirin 81 mg daily REVIEW OF SYSTEMS At the time of my exam: CONSTITUTIONAL: Denies fever or chills. CARDIOVASCULAR: Denies chest pain, shortness of breath, orthopnea, PND or palpitations. RESPIRATORY: Denies cough. GASTROINTESTINAL: Denies abdominal pain, diarrhea, constipation, nausea or vomiting. MUSCULOSKELETAL: Denies myalgias. NEUROLOGIC: Denies numbness, tingling, headacbe or weakness. ENDOCRINE: Denies fatigue, weight change, polydipsia or polyurina. GENITOURINARY: Denies burning, hematuria or urgency with micturation. HEMATOLOGIC: Denies history of anemia or bleeding. PHYSICAL EXAMINATION Blood pressure 116/66, heart rate 85, afebrile, oxygen saturations 97% on room air CONSTITUTIONAL: No apparent distress. HEENT: Head is normocephalic. Pupils are equal, round. Sclerae anicteric. Mucous membranes of the mouth are moist. No JVD. No carotid bruit. CHEST EXAMINATION: Lungs are clear to auscultation. No chest wall tenderness is noted on palpation or with deep breathing. HEART EXAMINATION: Regular rate and rhythm. S1, S2 heard. No murmurs, gallops or rub. ABDOMEN: Soft, nontender. Positive bowel sounds. EXTREMITIES: 2+ peripheral pulses, no lower extremity edema and no calf tenderness. NEUROLOGIC EXAMINATION: Patient is awake, alert and oriented x3. ASSESSMENT NSTEMI Hypotension Acute kidney injury History of Hypertension Type 2 diabetes Dyslipidemia PLAN Recheck BMP We recommend cardiac catheterization, patient is agreeable. I have discussed the risks, benefits and alternative therapies for the above- mentioned procedure and for both sedation/analgesia as well as necessary blood product administration, if indicated, as they pertain to this patient. The patient has indicated understanding and acceptance of the risks and procedures discussed. Questions have been answered appropriately and he is agreeable to move forward with the above-stated procedure. 2D echocardiogram completed Continue IV Heparin Continue aspirin, statin, metoprolol tartrate Hold Losartan due to hypotension Plan for cardiac catheterization with Dr. Park Further recommendations based on clinical course Nurse practitioner note has been reviewed by physician. Signing provider agrees with the documented findings, assessment, and plan of care. Past Medical History Past Medical History: Diabetes Mellitus, GERD/Reflux, Hyperlipidemia, Hypertension Additional Past Medical History / Comment(s): RLS, kidney stones, Parkinsons Disease, COVID 06/2021 History of Any Multi-Drug Resistant Organisms: None Reported Past Surgical History: Back Surgery, Cholecystectomy, Joint Replacement, Orthopedic Surgery Additional Past Surgical History / Comment(s): RT ARM SX. RT TKA. BACK SX X 2. KIDNEY STONES REMOVED. COLONOSCOPY, EGD. Cataract surgery Past Anesthesia/Blood Transfusion Reactions: No Reported Reaction Additional Past Anesthesia/Blood Transfusion Reaction / Comment(s): Never had a blood transfuson to his knowledge. 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 Smoking Status: Never smoker Past Alcohol Use History: Occasional Additional Past Alcohol Use History / Comment(s): QUIT SMOKING AT AGE 37 Past Drug Use History: None Reported - Past Family History Mother Additional Family Medical History / Comment(s): Pancreatic cancer. Father Family Medical History: Congestive Heart Failure (CHF) Medications and Allergies Home Medications Medication Instructions Recorded Confirmed Type Aspirin EC [Ecotrin Low Dose] 81 mg PO DAILY 11/07/15 07/30/21 History Atorvastatin [Lipitor] 80 mg PO HS 11/07/15 07/30/21 History Ferrous Sulfate [Iron (65 MG 325 mg PO BID 11/07/15 07/30/21 History Elemental)] Losartan Potassium [Cozaar] 100 mg PO DAILY 11/07/15 07/30/21 History Metoprolol Tartrate [Lopressor] 25 mg PO BID 11/07/15 07/30/21 History Pantoprazole [Protonix] 40 mg PO DAILY 11/07/15 07/30/21 History hydroCHLOROthiazide [Hydrodiuril] 25 mg PO DAILY 11/07/15 07/30/21 History metFORMIN HCL [Glucophage] 850 mg PO TID 11/07/15 07/30/21 History Carbidopa/Levodopa [Sinemet CR 2 tab PO TID 05/05/16 07/30/21 History 50-200 mg] Meloxicam [Mobic] 7.5 mg PO BID 02/11/19 07/30/21 History Tadalafil 20 mg PO DAILY PRN 02/14/19 07/30/21 History Cyanocobalamin (Vitamin B-12) 1,000 mcg PO DAILY 01/18/21 07/30/21 History [Vitamin B-12] DULoxetine HCL [Cymbalta] 60 mg PO BID 01/18/21 07/30/21 History Loratadine 10 mg PO DAILY 01/18/21 07/30/21 History Mirtazapine [Remeron] 7.5 mg PO HS PRN 01/18/21 07/30/21 History Pregabalin [Lyrica] 75 mg PO ACHS 01/18/21 07/30/21 History rOPINIRole HCL [Requip] 5 mg PO TID 01/18/21 07/30/21 History Cholecalciferol [Vitamin D3 (25 50 mcg PO DAILY 07/30/21 07/30/21 History Mcg = 1000 Iu)] Lifitegrast [Xiidra] 1 applic BOTH EYES BID 07/30/21 07/30/21 History Tamsulosin [Flomax] 0.4 mg PO HS 07/30/21 07/30/21 History rOPINIRole HCL [Requip] 3 mg PO TID 07/30/21 07/30/21 History Allergies Allergy/AdvReac Type Severity Reaction Status Date / Time latex Allergy Rash/Hives Verified 07/30/21 21:38 Tetanus Vaccines and Toxoid Allergy Unknown Verified 07/30/21 21:38 [Tetanus Vaccines & Toxoid] Childhood gabapentin AdvReac DEPRESSION Verified 07/30/21 21:38 lisinopril AdvReac Cough Verified 07/30/21 21:38 primidone AdvReac DROWSINESS Verified 07/30/21 21:38 tape AdvReac Rash/Hives Uncoded 01/18/21 17:00 Physical Exam Vitals: Vital Signs Temp Pulse Pulse Resp BP BP Pulse Ox 07/31/21 07:47 85 07/31/21 07:35 98.2 F 85 18 116/66 97 07/31/21 04:00 98 F 86 18 107/65 98 07/31/21 00:00 97.8 F 96 18 114/65 96 07/30/21 21:20 86 16 107/57 97 07/30/21 21:06 103 H 98 07/30/21 20:11 90/62 07/30/21 19:47 94 16 88/51 98 07/30/21 19:08 96 18 87/53 100 07/30/21 18:56 100 20 96/45 98 07/30/21 18:47 105 H 18 88/46 99 07/30/21 18:18 98 F 112 H 18 84/51 98 Intake and Output 07/30/21 07/31/21 07/31/21 22:59 06:59 14:59 Intake Total 610.5 Balance 610.5 Intake: Intake, IV Titration 70.5 Amount Heparin Sod,Pork in 0.45% 70.5 NaCl 25,000 unit In 0.45 % NaCl 1 250ml.bag @ 10. 9683 UNITS/KG/HR 10 mls/ hr IV .Q24H [facility] Rx#: [id number] Oral 540 Other: Voiding Method Toilet Toilet # Voids 1 Weight 91.172 kg 91.172 kg Results 07/31/21 04:51 07/30/21 18:34 Cardiac Enzymes 07/30/21 07/30/21 07/30/21 Range/Units 18:34 18:34 22:48 AST 55 (17-59) U/L Troponin I 0.035 H* 0.061 H* (0.000-0.034) ng/mL 07/31/21 Range/Units 00:21 AST (17-59) U/L Troponin I 0.063 H* (0.000-0.034) ng/mL Coagulation 07/30/21 07/31/21 Range/Units 18:34 04:51 PT 10.4 10.5 (9.0-12.0) sec APTT 22.3 34.6 H (22.0-30.0) sec CBC 07/30/21 Range/Units 18:34 WBC 13.2 H (3.8-10.6) k/uL RBC 4.29 L (4.30-5.90) m/uL Hgb 12.7 L (13.0-17.5) gm/dL Hct 39.5 (39.0-53.0) % Plt Count 190 (150-450) k/uL Comprehensive Metabolic Panel 07/30/21 Range/Units 18:34 Sodium 137 (137-145) mmol/L Potassium 3.5 (3.5-5.1) mmol/L Chloride 103 (98-107) mmol/L Carbon Dioxide 23 (22-30) mmol/L BUN 22 H (9-20) mg/dL Creatinine 1.74 H (0.66-1.25) mg/dL Glucose 183 H (74-99) mg/dL Calcium 9.3 (8.4-10.2) mg/dL AST 55 (17-59) U/L ALT 27 (4-49) U/L Alkaline Phosphatase 59 (38-126) U/L Total Protein 6.2 L (6.3-8.2) g/dL Albumin 3.7 (3.5-5.0) g/dL Current Medications Generic Name Dose Route Start Last Admin Trade Name Freq PRN Reason Stop Dose Admin Acetaminophen 650 mg 07/30/21 19:58 Acetaminophen Tab 325 Mg Tab PO Q4HR PRN Pain Aspirin 325 mg 07/31/21 09:00 07/31/21 07:39 Aspirin 325 Mg Tab PO 325 mg DAILY PAULINA Administration Atorvastatin Calcium 80 mg 07/30/21 22:15 07/30/21 23:00 Atorvastatin 80 Mg Tab PO 80 mg HS PAULINA Administration Carbidopa/Levodopa 2 each 07/30/21 22:15 07/31/21 07:40 Carbidopa-Levodopa Er 50-200mg 1 Each Tablet.Er PO 2 each TID PAULINA Administration Duloxetine HCl 60 mg 07/30/21 22:15 07/31/21 07:39 Duloxetine Hcl 60 Mg Capsule.Dr PO 60 mg BID PAULINA Administration Heparin Sodium (Porcine) 0 unit 07/30/21 22:14 07/31/21 06:08 Heparin Sodium 1,000 Un/Ml (10ml Vl) IV 4,000 unit PER PROTOCOL PRN Administration Low PTT Protocol Heparin Sodium/Sodium Chloride 250 mls @ 10 mls/hr 07/30/21 22:15 07/31/21 06:05 25,000 unit/ Sodium Chloride IV 13.96 units/kg/hr .Q24H [facility] 12.728 mls/hr Titration Protocol 10.9683 UNITS/KG/HR Insulin Aspart 0 unit 07/30/21 22:07 07/31/21 06:03 Insulin Aspart (Novolog) 100 Unit/Ml Vial SQ Not Given ACHS [facility] Protocol Metoprolol Tartrate 25 mg 07/31/21 09:00 07/31/21 07:40 Metoprolol Tartrate 25 Mg Tab PO 25 mg BID PAULINA Administration Mirtazapine 7.5 mg 07/30/21 22:04 Mirtazapine 15 Mg Tab PO HS PRN Insomnia Pantoprazole Sodium 40 mg 07/31/21 07:30 07/31/21 06:08 Pantoprazole 40 Mg Tablet PO 40 mg AC-BRKFST PAULINA Administration Pregabalin 75 mg 07/31/21 07:30 07/31/21 06:08 Pregabalin 75 Mg Cap PO 75 mg ACHS PAULINA Administration Ropinirole HCl 8 mg 07/30/21 22:15 07/31/21 07:39 Ropinirole Hcl 4 Mg Tablet PO 8 mg TID PAULINA Administration Simethicone 80 mg 07/31/21 00:30 07/31/21 07:39 Simethicone 80 Mg Chewable PO 80 mg QID PAULINA Administration Tamsulosin HCl 0.4 mg 07/31/21 21:00 Tamsulosin 0.4 Mg Cap.Er.24h PO HS PAULINA Intake and Output 07/30/21 07/31/21 07/31/21 22:59 06:59 14:59 Intake Total 610.5 Balance 610.5 Intake: Intake, IV Titration 70.5 Amount Heparin Sod,Pork in 0.45% 70.5 NaCl 25,000 unit In 0.45 % NaCl 1 250ml.bag @ 10. 9683 UNITS/KG/HR 10 mls/ hr IV .Q24H [facility] Rx#: [id number] Oral 540 Other: Voiding Method Toilet Toilet # Voids 1 Weight 91.172 kg 91.172 kg 07/30/21 18:34 07/30/21 18:34
--- NOTE | 2021-07-31 15:27 | P.PN ---
Subjective Progress Note Date: 07/31/21 (delayed charing seen at 1030) Patient is a 76 yo male with a hx of HTN, DM 2, GERD, and HLD who presented with chest pain. In the emergency department he was found to have BERNARDO, and an elevated troponin. He was seen by cardio who recommended cardiac cath. Patient seen and examined at bedside. Currently chest pain-free, no shortness breath, no nausea, no vomiting. General: non toxic, no distress, appears at stated age Derm: warm, dry Head: atraumatic, normocephalic, symmetric Eyes: EOMI, no lid lag, anicteric sclera Mouth: no lip lesion, mucus membranes moist Cardiovascular: S1S2 reg, no murmur, positive posterior tibial pulse bilateral, Lungs: CTA bilateral, no rhonchi, no rales , no accessory muscle use Abdominal: soft, nontender to palpation, no guarding, no appreciable organomegaly Ext: no gross muscle atrophy, no edema, no contractures Neuro: CN II-XI grossly intact, no focal neuro deficits Psych: Alert, oriented, appropriate affect Assessment/plan: Non-STEMI -Cardiology recommendations appreciated: Plan is for cardiac cath -Await echo -Continue with aspirin, metoprolol, statin -Continue with heparin drip Acute kidney injury -IV fluids -Hold ARB -Repeat labs in AM Diabetes mellitus type 2 - SSI - follow BS - check A1C Dyslipidemia Hypertension Active Medications Generic Name Dose Route Start Last Admin Trade Name Freq PRN Reason Stop Dose Admin Acetaminophen 650 mg 07/30/21 19:58 Acetaminophen Tab 325 Mg Tab PO Q4HR PRN Pain Alprazolam 0.25 mg 07/31/21 08:26 Alprazolam 0.25 Mg Tab PO Q6HR PRN Mild Anxiety Alprazolam 0.5 mg 07/31/21 08:26 Alprazolam 0.5 Mg Tab PO Q6HR PRN Moderate Anxiety Aspirin 325 mg 07/31/21 09:00 07/31/21 07:39 Aspirin 325 Mg Tab PO 325 mg DAILY PAULINA Administration Atorvastatin Calcium 80 mg 07/30/21 22:15 07/30/21 23:00 Atorvastatin 80 Mg Tab PO 80 mg HS PAULINA Administration Carbidopa/Levodopa 2 each 07/30/21 22:15 07/31/21 15:07 Carbidopa-Levodopa Er 50-200mg 1 Each Tablet.Er PO 2 each TID PAULINA Administration Duloxetine HCl 60 mg 07/30/21 22:15 07/31/21 07:39 Duloxetine Hcl 60 Mg Capsule.Dr PO 60 mg BID PAULINA Administration Heparin Sodium (Porcine) 0 unit 07/30/21 22:14 07/31/21 06:08 Heparin Sodium 1,000 Un/Ml (10ml Vl) IV 4,000 unit PER PROTOCOL PRN Administration Low PTT Protocol Heparin Sodium/Sodium Chloride 250 mls @ 10 mls/hr 07/30/21 22:15 07/31/21 16:44 25,000 unit/ Sodium Chloride IV 13.96 units/kg/hr .Q24H [facility] 12.728 mls/hr Administration Protocol 10.9683 UNITS/KG/HR Heparin Sodium (Porcine) 10, 1,001 mls @ 999 mls/hr 07/31/21 07:00 000 unit/ Sodium Chloride IRRIGATION 08/01/21 07:01 ONCE PRN INTRA-OP Heparin Sodium (Porcine) 2,500 250.5 mls @ 250 mls/hr 07/31/21 07:00 unit/ Sodium Chloride IRRIGATION 08/01/21 07:01 ONCE PRN INTRA-OP Sodium Chloride 1,000 ml/ IV 1,000 mls @ 91.172 mls/hr 07/31/21 08:30 07/31/21 17:26 Solution IV 91.172 mls/hr .[id number] PAULINA Administration 1 ML/KG/HR Insulin Aspart 0 unit 07/30/21 22:07 07/31/21 16:30 Insulin Aspart (Novolog) 100 Unit/Ml Vial SQ Not Given ACHS [facility] Protocol Metoprolol Tartrate 25 mg 07/31/21 09:00 07/31/21 07:40 Metoprolol Tartrate 25 Mg Tab PO 25 mg BID PAULINA Administration Mirtazapine 7.5 mg 07/30/21 22:04 Mirtazapine 15 Mg Tab PO HS PRN Insomnia Nitroglycerin 0.4 mg 07/31/21 08:26 Nitroglycerin Sl Tabs 0.4 Mg Tab SUBLINGUAL Q5M PRN Chest Pain Pantoprazole Sodium 40 mg 07/31/21 07:30 07/31/21 06:08 Pantoprazole 40 Mg Tablet PO 40 mg AC-BRKFST PAULINA Administration Pregabalin 75 mg 07/31/21 07:30 07/31/21 16:42 Pregabalin 75 Mg Cap PO 75 mg ACHS PAULINA Administration Ropinirole HCl 8 mg 07/30/21 22:15 07/31/21 15:07 Ropinirole Hcl 4 Mg Tablet PO 8 mg TID PAULIAN Administration Simethicone 80 mg 07/31/21 00:30 07/31/21 16:42 Simethicone 80 Mg Chewable PO 80 mg QID PAULINA Administration Tamsulosin HCl 0.4 mg 07/31/21 21:00 Tamsulosin 0.4 Mg Cap.Er.24h PO HS PAULNIA Objective - Vital Signs Vital signs: Vital Signs Temp 98.2 F 07/31/21 07:35 Pulse 78 07/31/21 13:00 Resp 20 07/31/21 11:06 BP 97/59 07/31/21 11:06 Pulse Ox 98 07/31/21 11:06 Intake & Output 07/30/21 07/31/21 07/31/21 18:59 06:59 18:59 Intake Total 610.5 Balance 610.5 Weight 91.172 kg 91.172 kg Intake: Intake, IV Titration 70.5 Amount Heparin Sod,Pork in 0.45% 70.5 NaCl 25,000 unit In 0.45 % NaCl 1 250ml.bag @ 10. 9683 UNITS/KG/HR 10 mls/ hr IV .Q24H [facility] Rx#: [id number] Oral 540 Other: Voiding Method Toilet Toilet # Voids 1 1 # Bowel Movements 1 - Labs CBC & Chem 7: 07/31/21 04:51 07/31/21 04:51 Labs: Abnormal Lab Results - Last 24 Hours (Table) 07/30/21 07/30/21 07/30/21 Range/Units 18:34 18:34 18:34 WBC 13.2 H (3.8-10.6) k/uL RBC 4.29 L (4.30-5.90) m/uL Hgb 12.7 L (13.0-17.5) gm/dL Hct (39.0-53.0) % Neutrophils # 9.7 H (1.3-7.7) k/uL APTT (22.0-30.0) sec BUN 22 H (9-20) mg/dL Creatinine 1.74 H (0.66-1.25) mg/dL Glucose 183 H (74-99) mg/dL POC Glucose (mg/dL) (75-99) mg/dL Troponin I 0.035 H* (0.000-0.034) ng/mL Total Protein 6.2 L (6.3-8.2) g/dL 07/30/21 07/30/21 07/31/21 Range/Units 22:48 22:57 00:21 WBC (3.8-10.6) k/uL RBC (4.30-5.90) m/uL Hgb (13.0-17.5) gm/dL Hct (39.0-53.0) % Neutrophils # (1.3-7.7) k/uL APTT (22.0-30.0) sec BUN (9-20) mg/dL Creatinine (0.66-1.25) mg/dL Glucose (74-99) mg/dL POC Glucose (mg/dL) 112 H (75-99) mg/dL Troponin I 0.061 H* 0.063 H* (0.000-0.034) ng/mL Total Protein (6.3-8.2) g/dL 07/31/21 07/31/21 07/31/21 Range/Units 03:24 04:51 04:51 WBC (3.8-10.6) k/uL RBC 4.03 L (4.30-5.90) m/uL Hgb 12.1 L (13.0-17.5) gm/dL Hct 37.9 L (39.0-53.0) % Neutrophils # (1.3-7.7) k/uL APTT 34.6 H (22.0-30.0) sec BUN (9-20) mg/dL Creatinine (0.66-1.25) mg/dL Glucose (74-99) mg/dL POC Glucose (mg/dL) 107 H (75-99) mg/dL Troponin I (0.000-0.034) ng/mL Total Protein (6.3-8.2) g/dL 07/31/21 07/31/21 07/31/21 Range/Units 05:51 11:32 11:50 WBC (3.8-10.6) k/uL RBC (4.30-5.90) m/uL Hgb (13.0-17.5) gm/dL Hct (39.0-53.0) % Neutrophils # (1.3-7.7) k/uL APTT 50.9 H (22.0-30.0) sec BUN (9-20) mg/dL Creatinine (0.66-1.25) mg/dL Glucose (74-99) mg/dL POC Glucose (mg/dL) 103 H 127 H (75-99) mg/dL Troponin I (0.000-0.034) ng/mL Total Protein (6.3-8.2) g/dL
[2021-07-31 16:28] LABS: Glucose,Whole Blood 90 mg/dL (75-99)
[2021-07-31] MEDS: HEPARIN SOD,PORK IN 0.45% NACL 25,000 UNIT in 0.45% NACL 1 250ML.BAG IV SCH (16:44)
[2021-07-31 17:28] LABS: African American GFR (CKD) 66.6 (60.0-200.0); Anion Gap 15.8 mmol/L (10.00-18.00); Blood Urea Nitrogen 23.1 mg/dL (9.0-27.0); Calcium 9.2 mg/dL (8.7-10.3); Carbon Dioxide 21.2 mmol/L (20.0-27.5); Non-African American GFR(CKD) 57.5 (60.0-200.0); Potassium 3.8 mmol/L (3.5-5.5)
[2021-07-31] MEDS ORDERED: VERAPAMIL 2.5 MG/ML 2 ML AMP ONE (17:30)
[2021-07-31] MEDS ORDERED: HEPARIN SODIUM 1,000 UN/ML (10ML VL) ONE (17:40)
[2021-07-31] MEDS ORDERED: MIDAZOLAM 2 MG/2 ML VIAL IVP ONE (17:58)
[2021-07-31] MEDS ORDERED: LIDOCAINE 1% INJ 10MG/ML (5 ML VIAL-PF) SQ ONE (18:00)
[2021-07-31] MEDS ORDERED: IV FLUID CONTINUATION 1,000 ML IV ONE (18:01)
[2021-07-31] MEDS: VERAPAMIL SYRINGE (5 MG/10 ML) INTRAARTER ONE ×2 (18:01→18:08)
[2021-07-31] MEDS ORDERED: IOPAMIDOL-370 125ML BTL INJ ONE (18:07)
[2021-07-31] MEDS ORDERED: RX INFO: IV CONTRAST WAS GIVEN 1 EACH MISC MISCELLANE PRN (18:09)
[2021-07-31] MEDS ORDERED: SODIUM CHLORIDE 0.9% 1,000 ML IV SCH (18:15)
--- NOTE | 2021-07-31 18:15 | P.PCN ---
Date of Procedure: 07/31/21 Operative Findings: CARDIAC CATHETERIZATION PERFORMING PHYSICIAN: Wu Park MD, RPVI PROCEDURE PERFORMED: 1. Selective right and left coronary angiogram 2. Left heart catheterization INDICATION: Acute non-ST elevation myocardial infarction COMPLICATION: None APPROACH: Right radial artery LEVEL OF SEDATION: Moderate with a sedation length of 10 minutes PROCEDURE DESCRIPTION: After obtaining an informed consent, the patient was brought to cardiac laboratory animal care veterinarian. Local anesthesia was performed using lidocaine subcutaneously. The right radial artery was cannulated using Seldinger technique, the guidewire passed easily, following that we advanced a 5-Maori sheath dilator assembly, the wire and dilator were removed and sheath was flushed. Following that, 2 mg of verapamil. Selective right and left coronary angiogram using a 6-Maori JR4 and JL 3.5 catheters. Following that we did left heart catheterization using 6-Maori pigtail catheter. The procedure was completed there was no complication. SELECTIVE CORONARY ANGIOGRAM: The right coronary artery: Is a large caliber vessel and a dominant vessel. The RCA is angiographically normal. Distally bifurcates into PDA and PLV branches both appeared to be angiographically normal Left main: As angiographically normal. Bifurcates into THE accident LAD The left circumflex: Is a large caliber vessel nondominant vessel. The LCx is angiographically normal. Approximately gives rises into a large OM branch which trifurcates into 3 subbranches 50 angiographically normal. The left anterior descending artery: It is a large caliber vessel. The LAD is angiographically normal. Gives rises into the first and second diagonal branches both appeared to be angiographically normal. HEMODYNAMICS: The LVEDP was 17 mmHg with no significant gradient across aortic valve CONCLUSION: 1. Normal coronary angiogram 2. Mildly elevated left-sided filling pressure POSTPROCEDURE MANAGEMENT: Medical treatment and follow-up with the
[2021-07-31 20:38] LABS: Glucose,Whole Blood 155 mg/dL (75-99)
[2021-07-31] MEDS: ATORVASTATIN 80 MG TAB PO SCH (21:00)
[2021-07-31] MEDS ORDERED: TAMSULOSIN 0.4 MG CAP.ER.24H PO SCH (21:00)
[2021-08-01 06:15] LABS: Glucose,Whole Blood 99 mg/dL (75-99)
[2021-08-01] MEDS: INSULIN ASPART (NovoLOG) 100 UNIT/ML VIAL SQ SCH ×2 (06:35→12:57)
[2021-08-01] MEDS: PANTOPRAZOLE 40 MG TABLET PO SCH (06:38)
[2021-08-01] MEDS: PREGABALIN 75 MG CAP PO SCH ×2 (06:38→14:17)
[2021-08-01] MEDS: SODIUM CHLORIDE 0.9% 1,000 ML in EMPTY BAG 1 BAG IV SCH (08:05)
[2021-08-01] MEDS: DULoxetine HCL 60 MG CAPSULE.DR PO SCH (08:23)
[2021-08-01] MEDS: METOPROLOL TARTRATE 25 MG TAB PO SCH (08:23)
[2021-08-01] MEDS: rOPINIRole HCL 4 MG TABLET PO SCH (08:24)
[2021-08-01] MEDS: CARBIDOPA-LEVODOPA ER 50-200MG 1 EACH TABLET.ER PO SCH (08:24)
[2021-08-01] MEDS: SIMETHICONE 80 MG CHEWABLE PO SCH ×2 (08:24→14:17)
[2021-08-01] MEDS ORDERED: ASPIRIN 81 MG PO SCH (09:00)
[2021-08-01] MEDS ORDERED: LOSARTAN 50 MG TAB PO SCH (09:00)
[2021-08-01 09:01] LABS: Basophils % (A) 1 %; Eosinophils # (A) 0.2 k/uL (0-0.7); Eosinophils % (A) 4 %; HCT 40.3 % (39.0-53.0); HGB 12.7 gm/dL (13.0-17.5); Lymphocytes # (A) 1.7 k/uL (1.0-4.8); Lymphocytes % (A) 29 %; MCH 29.3 pg (25.0-35.0); MCHC 31.4 g/dL (31.0-37.0); MCV 93.1 fL (80.0-100.0); Mean Platelet Volume 9.5; Monocytes # (A) 0.2 k/uL (0-1.0); Monocytes % (A) 4 %; Neutrophils # (A) 3.5 k/uL (1.3-7.7); Neutrophils % (A) 61 %; Platelet Count 158 k/uL (150-450); RBC 4.32 m/uL (4.30-5.90); RDW 13.7 % (11.5-15.5); WBC 5.7 k/uL (3.8-10.6)
[2021-08-01] MEDS ORDERED: LOSARTAN 25 MG TAB PO SCH (09:15)
[2021-08-01] MEDS ORDERED: CLOPIDOGREL 75 MG TAB PO SCH (09:15)
[2021-08-01 09:19] LABS: Potassium 4.1 mmol/L (3.5-5.1)
[2021-08-01 09:20] LABS: African American GFR (CKD) >90 (>60 ml/min/1.73 sqM); Anion Gap 9 mmol/L; Blood Urea Nitrogen 17 mg/dL (9-20); Calcium 9.1 mg/dL (8.4-10.2); Carbon Dioxide 27 mmol/L (22-30); Chloride 104 mmol/L (98-107); Glucose 109 mg/dL (74-99); Non-African American GFR(CKD) 83 (>60 ml/min/1.73 sqM); Sodium 140 mmol/L (137-145)
[2021-08-01 12:13] LABS: Glucose,Whole Blood 217 mg/dL (75-99)
--- NOTE | 2021-08-01 12:23 | P.DS ---
Providers Date of admission: 07/30/21 19:58 Expected date of discharge: 08/01/21 Attending physician: Ton Swenson MD Consults: 07/30/21 19:58 Consult Physician Urgent Consulting Provider: Kody Leal Consult Reason/Comments: cp, nstemi Do you want consulting provider notified?: Yes Primary care physician: [facility] Hospital Course: Discharge Diagnosis: NSTEMI, cardiac cath completed revealing normal coronary angiogram with mildly elevated left sided filling pressures. Concerns of possible plaque rupture causing NSTEMI, patient started on dual antiplatelet therapy with Plavix and aspirin. Acute kidney injury, resolved Hypotension in patient with history of Hypertension, hydrochlorothiazide was discontinued and losartan was decreased from 100 mg daily down to 25 mg daily and patient to continue daily medication regimen with metoprolol 25 mg twice daily unchanged. Type 2 qow-cuzyqoc-ewxmcwsda diabetes mellitus, continue daily medication regimen with metformin Dyslipidemia, continue daily medication regimen with atorvastatin 80 mg nightly. Hospital Course: Patient is a very pleasant 76-year-old male with a past medical history of hypertension, hyperlipidemia, GERD, and type II sei-tpuuofq-wufopqrst diabetes mellitus. He presented to the emergency department on 07/30/21 with a chief complaint of chest pain. He was seen and fully evaluated in the emergency department. He was found to have leukocytosis with WBC count of 13.2, normocytic normochromic anemia with hemoglobin of 12.7, and an acute kidney injury with BUN 22 creatinine of 1.74 and a GFR of 38. Troponin was elevated at 0.035 In an EKG was completed revealing sinus tachycardia at 107 bpm with no noted T-wave or ST abnormalities showing no signs of acute ischemia. Chest x- ray was then completed revealing basilar atelectasis and negative for acute cardiopulmonary process. Patient was admitted under our services consultation to cardiology. Troponins trended resulting in 0.035, 0.061, and 0.063. Echocardiogram completed revealing left ventricular hypertrophy with a preserved LV systolic function with EF of 55-60%. Patient was taken for cardiac cath on the evening of 07/31/21. Cardiac cath revealed normal coronary angiogram with mildly elevated left sided filling pressures. Cardiology recommending patient be started on dual antiplatelet therapy with Plavix and aspirin for the next 12 months secondary to concerns of a plaque rupture causing his NSTEMI. Cardiology recommending outpatient follow-up in the office. Patient has had full resolution of chest pain and is medically stable for discharge home. Medication changes were made secondary to episodes of hypotension including discontinuation of hydrochlorothiazide and decreasing losartan from 100 mg daily down to 25 mg daily and patient to continue daily medication regimen with metoprolol 25 mg twice daily. Patient to follow up outpatient with PCP at [facility] and with cardiology as scheduled on 08/07/21. Physical exam: Patient seen and examined at bedside. He is medically stable showing no signs of acute distress. Blood pressure 114/58 with heart rate of 87. Patient is having any chest pain, palpitations, headache, lightheadedness, dizziness, or shortness of breath. Morning labs reviewed and unremarkable. Patient medically stable for discharge at this time. Vital signs reviewed and stable. General: Nontoxic, no distress and appears stated age. Derm: Skin warm and dry, normal coloration for ethnicity. Head: Atraumatic, normocephalic and symmetric. Eyes: EOMs intact, no lid lag, and anicteric sclera Mouth: no lip lesions, mucus membranes moist Cardiovascular: regular rate and rhythm with normal S1S2, no murmur, positive posterior tibial pulses bilaterally, and cap refill < 2 seconds. Lungs: Respirations even, regular, and unlabored on room air. Lungs CTA bilaterally, no rhonchi, no rales, no wheezing, and no accessory muscle usage. Abdominal: soft, nontender to palpation, no guarding, no appreciable organomegaly Ext: ROM intact. No gross muscle atrophy, no edema, no contractures Neuro: Speech clear, face symmetrical and CN II-XII grossly intact with no noted focal neuro deficits Psych: Alert and oriented to person, place, time, and situation. Appropriate and pleasant affect. A total of 39 minutes of time were spent preparing this complex discharge summary. Pt was discharged on 08/01/21 at 12:17 PM. Patient Condition at Discharge: Stable Plan - Discharge Summary Discharge Rx Participant: Yes New Discharge Prescriptions: New Losartan [Cozaar] 25 mg PO DAILY 90 Days #90 tab Clopidogrel [Plavix] 75 mg PO DAILY 30 Days #30 tab Continue Pantoprazole [Protonix] 40 mg PO DAILY Atorvastatin [Lipitor] 80 mg PO HS Aspirin EC [Ecotrin Low Dose] 81 mg PO DAILY Metoprolol Tartrate [Lopressor] 25 mg PO BID Ferrous Sulfate [Iron (65 MG Elemental)] 325 mg PO BID metFORMIN HCL [Glucophage] 850 mg PO TID Carbidopa/Levodopa [Sinemet CR 50-200 mg] 2 tab PO TID Tadalafil 20 mg PO DAILY PRN PRN Reason: E.D. Cyanocobalamin (Vitamin B-12) [Vitamin B-12] 1,000 mcg PO DAILY Pregabalin [Lyrica] 75 mg PO ACHS Mirtazapine [Remeron] 7.5 mg PO HS PRN PRN Reason: Insomnia DULoxetine HCL [Cymbalta] 60 mg PO BID Loratadine 10 mg PO DAILY Lifitegrast [Xiidra] 1 applic BOTH EYES BID rOPINIRole HCL [Requip] 3 mg PO TID Tamsulosin [Flomax] 0.4 mg PO HS rOPINIRole HCL [Requip] 5 mg PO TID Cholecalciferol [Vitamin D3 (25 Mcg = 1000 Iu)] 50 mcg PO DAILY Discontinued hydroCHLOROthiazide [Hydrodiuril] 25 mg PO DAILY Losartan Potassium [Cozaar] 100 mg PO DAILY Meloxicam [Mobic] 7.5 mg PO BID Discharge Medication List Aspirin EC [Ecotrin Low Dose] 81 mg PO DAILY 11/07/15 [History] Atorvastatin [Lipitor] 80 mg PO HS 11/07/15 [History] Ferrous Sulfate [Iron (65 MG Elemental)] 325 mg PO BID 11/07/15 [History] Metoprolol Tartrate [Lopressor] 25 mg PO BID 11/07/15 [History] Pantoprazole [Protonix] 40 mg PO DAILY 11/07/15 [History] metFORMIN HCL [Glucophage] 850 mg PO TID 11/07/15 [History] Carbidopa/Levodopa [Sinemet CR 50-200 mg] 2 tab PO TID 05/05/16 [History] Tadalafil 20 mg PO DAILY PRN 02/14/19 [History] Cyanocobalamin (Vitamin B-12) [Vitamin B-12] 1,000 mcg PO DAILY 01/18/21 [History] DULoxetine HCL [Cymbalta] 60 mg PO BID 01/18/21 [History] Loratadine 10 mg PO DAILY 01/18/21 [History] Mirtazapine [Remeron] 7.5 mg PO HS PRN 01/18/21 [History] Pregabalin [Lyrica] 75 mg PO ACHS 01/18/21 [History] rOPINIRole HCL [Requip] 5 mg PO TID 01/18/21 [History] Cholecalciferol [Vitamin D3 (25 Mcg = 1000 Iu)] 50 mcg PO DAILY 07/30/21 [History] Lifitegrast [Xiidra] 1 applic BOTH EYES BID 07/30/21 [History] Tamsulosin [Flomax] 0.4 mg PO HS 07/30/21 [History] rOPINIRole HCL [Requip] 3 mg PO TID 07/30/21 [History] Clopidogrel [Plavix] 75 mg PO DAILY 30 Days #30 tab 08/01/21 [Rx] Losartan [Cozaar] 25 mg PO DAILY 90 Days #90 tab 08/01/21 [Rx] Follow up Appointment(s)/Referral(s): Wu Park MD [STAFF PHYSICIAN] - 08/07/21 3:15 pm [facility],Clinic [Primary Care Provider] - 08/12/21 8:00 am (appointment with RYANNE Richards ) Patient Instructions/Handouts: After Radial Heart Catheterization (GEN), Left Heart Catheterization (GEN) Activity/Diet/Wound Care/Special Instructions: Activity: As tolerated. Take breaks as needed. Diet: Heart healthy and carb consistent diet. Avoid salts, or foods with hidden salts such as canned or boxed foods and frozen dinners. Extra salt makes your heart work harder and traps the fluid in your body for longer. Special Instructions: Take all of your medications as directed and remember to keep all of your doctor's appointments and follow-up as needed. Thank you for allowing us to participate in your care, it was truly a pleasure having you for our patient!!! Mobic was discontinued as this is an NSAID and you are being discharged home on dual antiplatelet therapy with Plavix and aspirin and if you take a daily NSAID (like Mobic or ibuprofen) this could increase your risk of developing gastric ulcers and GI bleeding. Cardiology Instructions: -We made adjustments to your medications -Recommend Plavix 75mg Once a day for 12 months -Continue aspirin 81mg daily and atorvastatin -Due to low blood pressure we decreased her losartan to 25 mg daily -Continue metoprolol tartrate 25mg twice a day -Stop hydrochlorthiazide at this time. -Follow up with Dr. Park in the office in 1 week Discharge Disposition: HOME SELF-CARE
[2021-08-01 12:33] VITALS: RESP 16; TEMP 98.1
[2021-08-01 12:34] VITALS: BP 95/62; PULSE 76
--- NOTE | 2021-08-01 12:45 | P.PN ---
Subjective This is a pleasant 76-year-old male past medical history significant for hypertension, type 2 diabetes, dyslipidemia, covid-19 infection 07/19. She does not follow with a oxygen therapy teacher. We have been asked to see in consultation for chest pain. Patient presents to the emergency department with complaints of chest discomfort and low blood pressure. Patient states yesterday he was walking up the stairs. He had an episode of shortness of breath, diaphoresis and chest discomfort across his bilateral chest. He describes it as a chest pressure. It was exertional. He had radiation to his left shoulder. He had associated shortness of breath, dizziness. He states he checked his blood pressure and his SBP was in the 60s. He called a provider and was told to call EMS. called EMS and patient was transported to the ER. He denies any history of coronary artery disease, ID, stroke. He denies any tobacco use. Occasional alcohol use. Denies any family history of coronary artery disease. Troponins were elevated 0.035-->0.06--> 0.063. Non-specific EKG changes. Patient underwent cardiac catheterization with Dr. Park on 07/31/2021 which revealed normal coronary angiogram. Mildly elevated left-sided filling pressures. 08/01/2021 Patient seen and examined at bedside, no acute distress. BP 114/58 HR 87. afebrile 98% on room air. BP have improved. Vitals signs are stable. He has no chest pain, shortness of breath. Ambulating without difficulty. He is currently maintained on aspirin 81 mg daily, metoprolol titrate 25 mg twice a day. Sodium 140, potassium 4.1, BUN 17, serum creatinine 0.9 PHYSICAL EXAMINATION Vitals reviewed. CONSTITUTIONAL: No apparent distress. HEENT: Head is normocephalic. Pupils are equal, round. Sclerae anicteric. Mucous membranes of the mouth are moist. No JVD. No carotid bruit. CHEST EXAMINATION: Lungs are clear to auscultation. No chest wall tenderness is noted on palpation or with deep breathing. HEART EXAMINATION: Regular rate and rhythm. S1, S2 heard. No murmurs, gallops or rub. ABDOMEN: Soft, nontender. Positive bowel sounds. EXTREMITIES: 2+ peripheral pulses, no lower extremity edema and no calf tenderness. SKIN: Right radial cath site 2+ pulses clean dry intact no hematoma NEUROLOGIC EXAMINATION: Patient is awake, alert and oriented x3. ASSESSMENT NSTEMI s/p cardiac cath with normal coronary arteries, possible rupture plaque Hypotension Acute kidney injury History of Hypertension Type 2 diabetes Dyslipidemia PLAN Recommend dual anti platelet therapy for 12 months with aspirin and Plavix Discontinue patient's home losartan 100mg daily, decrease to 25mg daily Continue home aspirin, statin, metoprolol Follow up outpatient with Dr. Park in 1 week. Nurse practitioner note has been reviewed by physician. Signing provider agrees with the documented findings, assessment, and plan of care. Objective - Vital Signs Vital signs: Vital Signs Temp 98.1 F 08/01/21 08:10 Pulse 76 08/01/21 11:40 Resp 16 08/01/21 11:40 BP 95/62 08/01/21 11:40 Pulse Ox 94 L 08/01/21 11:40 Intake & Output 07/31/21 08/01/21 08/01/21 18:59 06:59 18:59 Intake Total 185.553 120 Balance 185.553 120 Intake: IV 50 Intake, IV Titration 135.553 Amount Heparin Sod,Pork in 0.45% 135.553 NaCl 25,000 unit In 0.45 % NaCl 1 250ml.bag @ 10. 9683 UNITS/KG/HR 10 mls/ hr IV .Q24H [facility] Rx#: [id number] Oral 120 Other: Voiding Method Toilet Toilet Toilet # Voids 1 2 0 # Bowel Movements 1 0 - Labs CBC & Chem 7: 08/01/21 08:27 08/01/21 08:27 Labs: Abnormal Lab Results - Last 24 Hours (Table) 07/31/21 07/31/21 07/31/21 Range/Units 04:51 04:51 11:50 Hgb (13.0-17.5) gm/dL APTT 50.9 H (22.0-30.0) sec Est GFR (CKD-EPI)NonAf 57.5 L (60.0-200.0) Glucose (74-99) mg/dL POC Glucose (mg/dL) (75-99) mg/dL Hemoglobin A1c 6.6 H (0.0-6.0) % 07/31/21 08/01/21 08/01/21 Range/Units 20:37 08:27 08:27 Hgb 12.7 L (13.0-17.5) gm/dL APTT (22.0-30.0) sec Est GFR (CKD-EPI)NonAf (60.0-200.0) Glucose 109 H (74-99) mg/dL POC Glucose (mg/dL) 155 H (75-99) mg/dL Hemoglobin A1c (0.0-6.0) % 08/01/21 Range/Units 12:11 Hgb (13.0-17.5) gm/dL APTT (22.0-30.0) sec Est GFR (CKD-EPI)NonAf (60.0-200.0) Glucose (74-99) mg/dL POC Glucose (mg/dL) 217 H (75-99) mg/dL Hemoglobin A1c (0.0-6.0) %
== END 2021-08-01 14:47 | disposition home or self-care (01) | DRG 281 ==
LOC: EC 18:15 → 3SCARD 19:58
PROVIDERS: ADMIT Internal Medicine; ATTEND Internal Medicine
PROC: B2111ZZ Fluoroscopy of Multiple Coronary Arteries using Low Osmolar Contrast (ICD-10-PCS; principal; 2021-07-31 17:39)
PROC: 4A023N7 Measurement of Cardiac Sampling and Pressure, Left Heart, Percutaneous Approach (ICD-10-PCS; principal; 2021-07-31 17:39)
DX: I21.4 Non-ST elevation (NSTEMI) myocardial infarction (principal); J98.11 Atelectasis; N17.9 Acute kidney failure, unspecified; G25.81 Restless legs syndrome; G47.00 Insomnia, unspecified; D64.9 Anemia, unspecified; D72.829 Elevated white blood cell count, unspecified; E11.9 Type 2 diabetes mellitus without complications; E78.5 Hyperlipidemia, unspecified; F43.10 Post-traumatic stress disorder, unspecified; G20 Parkinson's disease; I11.9 Hypertensive heart disease without heart failure; I25.2 Old myocardial infarction; Z79.1 Long term (current) use of non-steroidal anti-inflammatories (NSAID); Z79.4 Long term (current) use of insulin; Z79.82 Long term (current) use of aspirin; Z79.84 Long term (current) use of oral hypoglycemic drugs; Z79.899 Other long term (current) drug therapy; Z80.0 Family history of malignant neoplasm of digestive organs; Z82.49 Family history of ischemic heart disease and other diseases of the circulatory system; Z86.16 Personal history of COVID-19; Z87.442 Personal history of urinary calculi; Z96.651 Presence of right artificial knee joint; Z90.49 Acquired absence of other specified parts of digestive tract; Z88.7 Allergy status to serum and vaccine; Z88.8 Allergy status to other drugs, medicaments and biological substances; Z91.040 Latex allergy status; Z28.310 Unvaccinated for COVID-19
CPT/HCPCS: 36415; 71046; 80048; 80053; 80061; 83036; 83735; 83880; 84484; 85025; 85027; 85379; 85610; 85730; 86850; 86900; 86901; 93005; 93306; 93458; 96360; 96361; 99285

== ENCOUNTER 2021-11-11 11:47 | Emergency (ER) | payer OTHER, MEDICARE ==
[2021-11-11 11:51] VITALS: TEMP 97.8
[2021-11-11] MEDS ORDERED: SODIUM CHLORIDE 0.9% 1,000 ML IV STA (12:20)
[2021-11-11] MEDS ORDERED: PROCHLORPERAZINE INJ 10 MG/2 ML VIAL IVP STA (12:21)
[2021-11-11] MEDS ORDERED: diphenhydrAMINE 50 MG/ML 1 ML VIAL IVP STA (12:21)
[2021-11-11 12:48] LABS: Basophils % (A) 1 %; Eosinophils # (A) 0.2 k/uL (0-0.7); Eosinophils % (A) 3 %; HCT 40.8 % (39.0-53.0); HGB 13.1 gm/dL (13.0-17.5); Lymphocytes # (A) 1.7 k/uL (1.0-4.8); Lymphocytes % (A) 25 %; MCH 29.3 pg (25.0-35.0); MCV 91.4 fL (80.0-100.0); Mean Platelet Volume 10.2; Monocytes # (A) 0.3 k/uL (0-1.0); Monocytes % (A) 4 %; Neutrophils # (A) 4.4 k/uL (1.3-7.7); Neutrophils % (A) 64 %; Platelet Count 147 k/uL (150-450); RBC 4.46 m/uL (4.30-5.90); RDW 13.8 % (11.5-15.5); WBC 6.8 k/uL (3.8-10.6)
--- NOTE | 2021-11-11 12:58 | ED ---
General Adult HPI - General Chief complaint: Syncope Stated complaint: Black out Time Seen by Provider: 11/11/21 12:10 Source: patient, RN notes reviewed, old records reviewed Mode of arrival: ambulatory Limitations: no limitations - History of Present Illness Initial comments: Patient is a 76-year-old male with past medical history remarkable for atten tion, diabetes with bilateral lower extremity neuropathy, Parkinson's disease on aspirin and Plavix at home who presents emergency Department complaining of a syncopal episode last week. Episode occurred on . He thinks he got struck in the back of head by something when he walked out to the mailbox. The next thing he knew he was walking around [facility] without knowing how he got there. Was able to navigate home. Had no reoccurring episodes of syncope. Since the incident, he has been having some neck pain as well as a persistent very mild headache. Despite a headache of a tension-like and typical for him. Has not attempted to take medications to treat the headache. States he believes it is usually there since . Denies any new weakness, numbness. Denies any blurry vision. Denies any chest pain, shortness of breath, abdominal pain, nausea, vomiting. Denies any bleeding. Describes as neck pain as in the bilateral sides of his neck that radiates to the posterior skull and down into her shoulders. Denies any other injuries from the incident. Saw PCP today who sent him here for further evaluation.Denies fevers, chills, cough. Patient's presents with him and corroborates the story. States he has been acting his normal self. - Related Data Home Medications Medication Instructions Recorded Confirmed Aspirin EC [Ecotrin Low Dose] 81 mg PO DAILY 11/07/15 11/11/21 Atorvastatin [Lipitor] 80 mg PO HS 11/07/15 11/11/21 Ferrous Sulfate [Iron (65 MG 325 mg PO BID 11/07/15 11/11/21 Elemental)] Metoprolol Tartrate [Lopressor] 25 mg PO BID 11/07/15 11/11/21 Pantoprazole [Protonix] 40 mg PO DAILY 11/07/15 11/11/21 metFORMIN HCL [Glucophage] 850 mg PO TID 11/07/15 11/11/21 Carbidopa/Levodopa [Sinemet CR 2 tab PO TID 05/05/16 11/11/21 50-200 mg] Tadalafil 20 mg PO DAILY PRN 02/14/19 11/11/21 DULoxetine HCL [Cymbalta] 60 mg PO BID 01/18/21 11/11/21 Loratadine 10 mg PO DAILY 01/18/21 11/11/21 Mirtazapine [Remeron] 7.5 mg PO HS PRN 01/18/21 11/11/21 Pregabalin [Lyrica] 75 mg PO TID 01/18/21 11/11/21 rOPINIRole HCL [Requip] 5 mg PO TID 01/18/21 11/11/21 Cholecalciferol [Vitamin D3 (25 50 mcg PO DAILY 07/30/21 11/11/21 Mcg = 1000 Iu)] Tamsulosin [Flomax] 0.4 mg PO HS 07/30/21 11/11/21 rOPINIRole HCL [Requip] 3 mg PO TID 07/30/21 11/11/21 Meloxicam [Mobic] 7.5 mg PO BID 11/11/21 11/11/21 clonazePAM [Klonopin ODT] 0.25 mg PO TID 11/11/21 11/11/21 polyethylene glycoL 3350 [Miralax] 17 gm PO DAILY PRN 11/11/21 11/11/21 Previous Rx's Medication Instructions Recorded Clopidogrel [Plavix] 75 mg PO DAILY 30 Days #30 tab 08/01/21 Losartan [Cozaar] 25 mg PO DAILY 90 Days #90 tab 08/01/21 Allergies Allergy/AdvReac Type Severity Reaction Status Date / Time latex Allergy Rash/Hives Verified 11/11/21 13:13 Tetanus Vaccines and Toxoid Allergy Unknown Verified 11/11/21 13:13 [Tetanus Vaccines & Toxoid] Childhood gabapentin AdvReac DEPRESSION Verified 11/11/21 13:13 lisinopril AdvReac Cough Verified 11/11/21 13:13 primidone AdvReac DROWSINESS Verified 11/11/21 13:13 tape Allergy Rash/Hives Uncoded 11/11/21 13:13 Review of Systems ROS Statement: Those systems with pertinent positive or pertinent negative responses have been documented in the HPI. Review of Systems: CONST: Denies fever EYES: Denies blurry vision ENT: Denies nasal congestion C/V: Denies Chest pain RESP: Denies shortness of breath GI: Denies abdominal pain : Denies dysuria SKIN: Denies rash. MSK: Endorses neck pain NEURO: endorses tension-like headache ROS Other: All systems not noted in ROS Statement are negative. Past Medical History Past Medical History: Diabetes Mellitus, GERD/Reflux, Hyperlipidemia, Hypertension Additional Past Medical History / Comment(s): RLS, kidney stones, Parkinsons Disease, COVID 06/2021 History of Any Multi-Drug Resistant Organisms: None Reported Past Surgical History: Back Surgery, Cholecystectomy, Joint Replacement, Orthopedic Surgery Additional Past Surgical History / Comment(s): RT ARM SX. RT TKA. BACK SX X 2. KIDNEY STONES REMOVED. COLONOSCOPY, EGD. Cataract surgery Past Anesthesia/Blood Transfusion Reactions: No Reported Reaction Additional Past Anesthesia/Blood Transfusion Reaction / Comment(s): Never had a blood transfuson to his knowledge. Past Psychological History: PTSD Smoking Status: Never smoker Past Alcohol Use History: Occasional Past Drug Use History: None Reported - Past Family History Mother Additional Family Medical History / Comment(s): Pancreatic cancer. Father Family Medical History: Congestive Heart Failure (CHF) General Exam - General Exam Comments Initial Comments: General: Appears in no acute distress. HEAD: Normal with no signs of head trauma. Negative raccoon eyes, negative Ramirez sign. EYES: PERRLA, EOMI, conjunctiva normal, no discharge. Pupils are 3 mm and equal bilaterally. ENT: Hearing grossly intact, normal oropharynx. RESPIRATORY: Clear breath sounds bilaterally. No wheezes, rales, or rhonchi. C/V: Regular rate and rhythm. S1 and S2 auscultated, no edema, peripheral pulses 2+ and intact throughout ABD: Abd is soft, nontender, nondistended EXT: Normal range of motion, no obvious deformity. No midline spinal tenderness to palpation. Patient does have paraspinal muscle tenderness to palpation along the trapezius muscle in the neck to the base of the skull and down into the bilateral shoulders. SKIN: No rashes or lesions observed on exposed skin. NEURO: Alert and oriented x 4. Cranial nerves II-XII intact. No focal sensory or strength deficits. Cerebellar function is intact as evident by normal finger to nose testing. NIH is 0. GCS is 15. Ambulates without difficulty. Does have chronic baseline tremor secondary to Parkinson's disease Limitations: no limitations Course Vital Signs 11/11/21 11/11/21 11:48 13:09 Temperature 97.8 F Pulse Rate 93 84 Respiratory 20 16 Rate Blood Pressure 141/64 98/64 O2 Sat by Pulse 98 94 L Oximetry Medical Decision Making - Medical Decision Making Based on the patient's presentation and physical exam, I'm concerned for possible syncopal episode versus traumatic episode with subsequent amnesic episode afterwards last . Has not reoccurred. Sent here for further evaluation by his PCP. We discussed we'll work him up for syncope as well as obtain a CT brain and C-spine due to the possible trauma. He has no other acute complaints at this time. Screening EKG will be obtained as well. He was in agreement this plan. Will be given a migraine cocktail for his headache. Vital signs are within normal limits. EKG shows no signs of acute ischemia. Unchanged from prior EKGs.Patient's laboratory studies are remarkable for a mild hyperglycemia 208. Remainder the blood work is unremarkable. Patient does have a mild thrombocytopenia with a history of it. Chest x-ray shows no acute cardiopulmonary process. CT head, cervical spine reveals no acute intracranial abnormality. No acute fractures of the cervical spine. There are spondylitic changes in the cervical spine, chronic degenerative changes. On reevaluation, patient's headache and neck pain are resolved. He has mild muscle cramps in bilateral lower extremities which is chronic for him and is requesting home dose of his ropinirole. This was provided. I discussed with him the results of his negative workup. I do believe it is safer to be disc harged home at this time. He was in agreement this plan. Discussed strict return precautions, especially if this reoccurs. Recommend a follow-up with his PCP. Vital signs remained within normal limits. I instructed the patient to follow up with their PCP in the next 1-3 days. I explained that the patient should return to the emergency department if they experience any worsening symptoms. Strict return precautions were discussed with the patient. The patient expressed understanding of these instructions. I answered all questions that the patient had. The patient was discharged home in good condition with their prescriptions and follow up information. - Lab Data Result diagrams: 11/11/21 12:23 11/11/21 12:23 Lab Results 11/11/21 11/11/21 11/11/21 Range/Units 12:23 12:23 12:23 WBC 6.8 (3.8-10.6) k/uL RBC 4.46 (4.30-5.90) m/uL Hgb 13.1 (13.0-17.5) gm/dL Hct 40.8 (39.0-53.0) % MCV 91.4 (80.0-100.0) fL MCH 29.3 (25.0-35.0) pg MCHC 32.0 (31.0-37.0) g/dL RDW 13.8 (11.5-15.5) % Plt Count 147 L (150-450) k/uL MPV 10.2 Neutrophils % 64 % Lymphocytes % 25 % Monocytes % 4 % Eosinophils % 3 % Basophils % 1 % Neutrophils # 4.4 (1.3-7.7) k/uL Lymphocytes # 1.7 (1.0-4.8) k/uL Monocytes # 0.3 (0-1.0) k/uL Eosinophils # 0.2 (0-0.7) k/uL Basophils # 0.0 (0-0.2) k/uL PT 10.3 (9.0-12.0) sec INR 0.9 (<1.2) APTT 23.5 (22.0-30.0) sec Sodium 137 (137-145) mmol/L Potassium 4.4 (3.5-5.1) mmol/L Chloride 104 (98-107) mmol/L Carbon Dioxide 23 (22-30) mmol/L Anion Gap 10 mmol/L BUN 16 (9-20) mg/dL Creatinine 0.83 (0.66-1.25) mg/dL Est GFR (CKD-EPI)AfAm >90 (>60 ml/min/1.73 sqM) Est GFR (CKD-EPI)NonAf 87 (>60 ml/min/1.73 sqM) Glucose 208 H (74-99) mg/dL Calcium 8.9 (8.4-10.2) mg/dL Magnesium 1.8 (1.6-2.3) mg/dL Total Bilirubin 0.8 (0.2-1.3) mg/dL AST 52 (17-59) U/L ALT 25 (4-49) U/L Alkaline Phosphatase 72 (38-126) U/L Total Protein 6.3 (6.3-8.2) g/dL Albumin 4.0 (3.5-5.0) g/dL - EKG Data -: EKG Interpreted by Me EKG Comments: 12-lead Electrocardiogram Interpretation Note EKG was reviewed and interpreted by myself. 12-lead ECG performed at 1231 is interpreted by me as revealing normal sinus rhythm at a rate of 76 beats per minute. [place] is normal. AL interval is 173 ms, QRS duration is 91 ms, QTc is 401 ms.. There were no acute ST or T wave abnormalities to suggest myocardial ischemia or injury. Chronic T-wave inversion that is very mild in lead III and is isolated. R wave progression across the precordium was satisfactory. By my interpretation this EKG is non-diagnostic for acute ischemia. Disposition Clinical Impression: Syncope, Musculoskeletal pain, Tension headache Disposition: HOME SELF-CARE Condition: Good Instructions (If sedation given, give patient instructions): Syncope (ED) Is patient prescribed a controlled substance at d/c from ED?: No Referrals: [facility] [Primary Care Provider] - 1-2 days Time of Disposition: 13:50
--- NOTE | 2021-11-11 12:58 | XR ---
EXAMINATION TYPE: XR chest 2V DATE OF EXAM: 11/11/2021 12:50 PM COMPARISON: Chest radiographs from 07/30/2021. TECHNIQUE: XR chest 2V Frontal and lateral views of the chest. CLINICAL INDICATION:Male, 76 years old with history of syncope; FINDINGS: Lungs/Pleura: There is no evidence of pleural effusion, focal consolidation, or pneumothorax. Bibasi lar atelectasis and/or scarring. Pulmonary vascularity: Unremarkable. Heart/mediastinum: Cardiomediastinal silhouette is stable. Atherosclerotic calcifications are seen i n the aorta. Musculoskeletal: No acute osseous pathology. IMPRESSION: Similar bibasilar atelectasis and/or scarring without acute cardiopulmonary process.
[2021-11-11 13:02] LABS: ALT 25 U/L (4-49); AST 52 U/L (17-59); African American GFR (CKD) >90 (>60 ml/min/1.73 sqM); Alkaline Phosphatase 72 U/L (38-126); Anion Gap 10 mmol/L; Blood Urea Nitrogen 16 mg/dL (9-20); Calcium 8.9 mg/dL (8.4-10.2); Carbon Dioxide 23 mmol/L (22-30); Chloride 104 mmol/L (98-107); Glucose 208 mg/dL (74-99); Magnesium 1.8 mg/dL (1.6-2.3); Non-African American GFR(CKD) 87 (>60 ml/min/1.73 sqM); Potassium 4.4 mmol/L (3.5-5.1); Sodium 137 mmol/L (137-145); Total Bilirubin 0.8 mg/dL (0.2-1.3); Total Protein 6.3 g/dL (6.3-8.2)
[2021-11-11 13:07] LABS: INR 0.9 (<1.2); Partial Thromboplastin Time 23.5 sec (22.0-30.0); Prothrombin Time 10.3 sec (9.0-12.0)
--- NOTE | 2021-11-11 13:09 | CT ---
EXAMINATION TYPE: CT brain cspine wo con DATE OF EXAM: 11/11/2021 COMPARISON: Brain 02/11/2019 HISTORY: 76-year-old male Syncopal episode CT DLP: 1570.4 mGycm Automated exposure control for dose reduction was used. Technique: Examination of the head was done in axial plane without intravenous contrast. Coronal and sagittal reconstructions performed. CT of the cervical spine was obtained in axial plane without intravenous injection of contrast mater ial. Coronal and sagittal reformatted images were obtained from the axial views for evaluation of f ractures, spinal alignment and canal. FINDINGS: Head: There is no evidence of acute intracranial hemorrhage, acute ischemic changes, mass, mass-effect, or extra-axial fluid collection. There is no effacement of cerebral sulci or basal subarachnoid cister ns. There is no hydrocephalus. There is no midline shift. Irving-white matter distinction is preserv ed. Moderate mucosal thickening ethmoid air cells. Rightward nasal septal deviation. Mastoid air cells ar e well pneumatized. Cervical spine: No craniocervical junction abnormality, predental space widening, or prevertebral soft tissue swellin g. Degenerative change at the C1 dens articulation. Multilevel advanced hypertrophic facet and uncovertebral joint arthropathy. Moderate to advanced disc/endplate degenerative change C5-C7 levels with disc space narrowing and dis cussed by complex formation contributing to at least mild spinal canal stenosis. Degenerative grade 1 anterolisthesis C5-C6. Uncovertebral joint and facet degenerative change. Variable moderate bilateral neural foraminal steno ses, more moderate to severe on both sides at C6-C7. Degenerative changes sternoclavicular joints. No acute fracture of the cervical spine. Sagittal and coronal reformatted images confirm above findings. COMBINED IMPRESSION: 1. No acute intracranial abnormality seen. 2. No acute fracture of the cervical spine. Moderate to advanced spondylotic change C5-C7 levels with degenerative grade 1 anterolisthesis C5-C6.
[2021-11-11 13:10] VITALS: RESP 16
[2021-11-11] MEDS ORDERED: KETOROLAC 15 MG/ML 1 ML VIAL IVP STA (13:16)
[2021-11-11 14:23] VITALS: BP 106/47; PULSE 70
== END 2021-11-11 14:22 | disposition home or self-care (01) ==
LOC: EC 11:47
DX: R55 Syncope and collapse (principal); M79.18 Myalgia, other site; G44.209 Tension-type headache, unspecified, not intractable; D69.6 Thrombocytopenia, unspecified; E11.65 Type 2 diabetes mellitus with hyperglycemia; K21.9 Gastro-esophageal reflux disease without esophagitis; I10 Essential (primary) hypertension; E78.5 Hyperlipidemia, unspecified; Z86.16 Personal history of COVID-19; Z91.040 Latex allergy status; Z88.7 Allergy status to serum and vaccine; Z88.8 Allergy status to other drugs, medicaments and biological substances; Z91.09 Other allergy status, other than to drugs and biological substances; Z79.899 Other long term (current) drug therapy; Z79.84 Long term (current) use of oral hypoglycemic drugs; Z79.82 Long term (current) use of aspirin
CPT/HCPCS: 93005; 80053; 83735; 85025; 85610; 85730; 71046; 72125; 70450; 99284; 96374; 96375; 96361; J1200; J0780; 36415

== ENCOUNTER 2022-02-25 11:45 | Emergency (ER) | payer OTHER, MEDICARE ==
[2022-02-25 12:07] VITALS: BP 138/81; PULSE 95; RESP 18; TEMP 97.8
--- NOTE | 2022-02-25 12:21 | ED ---
General Adult HPI - General Chief complaint: Back Pain/Injury Stated complaint: back pain Source: patient, RN notes reviewed Mode of arrival: ambulatory Limitations: no limitations, physical limitation - History of Present Illness Initial comments: 77 year old male coming into ED for low back pain x 1 day. He was carrying heavy boxes up the stairs when his back started to hurt. He describes his back pain as sharp and constant. It improves when he stands. He has not tried anything for pain management. Denies recent truama, loss of bladder/bowel function, numbness, tingling, extremity weakness. He reports 2 back surgeries in the past. - Related Data Home Medications Medication Instructions Recorded Confirmed Aspirin EC [Ecotrin Low Dose] 81 mg PO DAILY 11/07/15 11/11/21 Atorvastatin [Lipitor] 80 mg PO HS 11/07/15 11/11/21 Ferrous Sulfate [Iron (65 MG 325 mg PO BID 11/07/15 11/11/21 Elemental)] Metoprolol Tartrate [Lopressor] 25 mg PO BID 11/07/15 11/11/21 Pantoprazole [Protonix] 40 mg PO DAILY 11/07/15 11/11/21 metFORMIN HCL [Glucophage] 850 mg PO TID 11/07/15 11/11/21 Carbidopa/Levodopa [Sinemet CR 2 tab PO TID 05/05/16 11/11/21 50-200 mg] Tadalafil 20 mg PO DAILY PRN 02/14/19 11/11/21 DULoxetine HCL [Cymbalta] 60 mg PO BID 01/18/21 11/11/21 Loratadine 10 mg PO DAILY 01/18/21 11/11/21 Mirtazapine [Remeron] 7.5 mg PO HS PRN 01/18/21 11/11/21 Pregabalin [Lyrica] 75 mg PO TID 01/18/21 11/11/21 rOPINIRole HCL [Requip] 5 mg PO TID 01/18/21 11/11/21 Cholecalciferol [Vitamin D3 (25 50 mcg PO DAILY 07/30/21 11/11/21 Mcg = 1000 Iu)] Tamsulosin [Flomax] 0.4 mg PO HS 07/30/21 11/11/21 rOPINIRole HCL [Requip] 3 mg PO TID 07/30/21 11/11/21 Meloxicam [Mobic] 7.5 mg PO BID 11/11/21 11/11/21 clonazePAM [Klonopin ODT] 0.25 mg PO TID 11/11/21 11/11/21 polyethylene glycoL 3350 [Miralax] 17 gm PO DAILY PRN 11/11/21 11/11/21 Previous Rx's Medication Instructions Recorded Clopidogrel [Plavix] 75 mg PO DAILY 30 Days #30 tab 08/01/21 Losartan [Cozaar] 25 mg PO DAILY 90 Days #90 tab 08/01/21 Allergies Allergy/AdvReac Type Severity Reaction Status Date / Time latex Allergy Rash/Hives Verified 02/25/22 12:07 Tetanus Vaccines and Toxoid Allergy Unknown Verified 02/25/22 12:07 [Tetanus Vaccines & Toxoid] Childhood gabapentin AdvReac DEPRESSION Verified 02/25/22 12:07 lisinopril AdvReac Cough Verified 02/25/22 12:07 primidone AdvReac DROWSINESS Verified 02/25/22 12:07 tape Allergy Rash/Hives Uncoded 02/25/22 12:07 Review of Systems ROS Statement: Those systems with pertinent positive or pertinent negative responses have been documented in the HPI. ROS Other: All systems not noted in ROS Statement are negative. Past Medical History Past Medical History: Diabetes Mellitus, GERD/Reflux, Hyperlipidemia, Hypertension Additional Past Medical History / Comment(s): RLS, kidney stones, Parkinsons Disease, COVID 06/2021 History of Any Multi-Drug Resistant Organisms: None Reported Past Surgical History: Back Surgery, Cholecystectomy, Joint Replacement, Orthopedic Surgery Additional Past Surgical History / Comment(s): RT ARM SX. RT TKA. BACK SX X 2. KIDNEY STONES REMOVED. COLONOSCOPY, EGD. Cataract surgery Past Anesthesia/Blood Transfusion Reactions: No Reported Reaction Additional Past Anesthesia/Blood Transfusion Reaction / Comment(s): Never had a blood transfuson to his knowledge. Past Psychological History: PTSD Smoking Status: Former smoker Past Alcohol Use History: None Reported Past Drug Use History: None Reported - Past Family History Mother Additional Family Medical History / Comment(s): Pancreatic cancer. Father Family Medical History: Congestive Heart Failure (CHF) General Exam Limitations: physical limitation General appearance: alert, in no apparent distress Head exam: Present: atraumatic, normocephalic, normal inspection Eye exam: Present: normal appearance, PERRL, EOMI. Absent: scleral icterus, conjunctival injection, periorbital swelling ENT exam: Present: normal exam, mucous membranes moist Neck exam: Present: normal inspection. Absent: tenderness, meningismus, lymphadenopathy Respiratory exam: Present: normal lung sounds bilaterally. Absent: respiratory distress, wheezes, rales, rhonchi, stridor Cardiovascular Exam: Present: regular rate, normal rhythm, normal heart sounds. Absent: systolic murmur, diastolic murmur, rubs, gallop, clicks GI/Abdominal exam: Present: soft Extremities exam: Present: normal inspection (Low back without erythema, edema, ecchymosis, signs of trauma. No step off. Limited ROM secondary to pain. NVI), full ROM, normal capillary refill. Absent: tenderness, pedal edema, joint swelling, calf tenderness Course Vital Signs 02/25/22 12:03 Temperature 97.8 F Pulse Rate 95 Respiratory 18 Rate Blood Pressure 138/81 O2 Sat by Pulse 97 Oximetry Medical Decision Making - Medical Decision Making 77 year old male being evaluated for back pain. Lumbar XR interpreted by me, negative for fracture acute process. Pt given toradol and lidoderm patch with symptomatic improvement in the ED. Recommend f/u with [facility]. Pt encouraged to return to the ED if symptoms worsen. Case discussed with Dr. Arias. Disposition Clinical Impression: Mechanical back pain Disposition: HOME SELF-CARE Additional Instructions: Return to ED if symptoms worsen or persist. Is patient prescribed a controlled substance at d/c from ED?: No Referrals: [facility],Clinic [Primary Care Provider] - 1-2 days Jen Sykes DO [Doctor of Osteopathic Medicine] - 1-2 days Time of Disposition: 13:59
[2022-02-25] MEDS ORDERED: KETOROLAC 15 MG/ML 1 ML VIAL IM STA (12:40)
[2022-02-25] MEDS ORDERED: LIDOCAINE 5% PATCH TOPICAL SCH (12:45)
--- NOTE | 2022-02-25 13:33 | XR ---
EXAMINATION TYPE: XR lumbar spine 2 or 3V DATE OF EXAM: 02/25/2022 CLINICAL HISTORY: Back pain after lifting injury TECHNIQUE: Frontal and lateral images of the lumbar spine are obtained. COMPARISON: CT lumbar spine January 18, 2021 FINDINGS: There are 5 lumbar type vertebral bodies redemonstrated. Posterior ventricular rods and sc rews L4-S1 level redemonstrated. Artificial disc material at L4-L5 and L5-S1 levels again seen. Verte bral body heights are maintained. Moderate to severe disc space narrowing at L3-L4 level redemonstrat ed. Moderate disc space narrowing and vacuum disc phenomenon L2-L3 level redemonstrated. Moderate to severe underlying arterial vascular calcification. No acute displaced fracture. IMPRESSION: As above.
== END 2022-02-25 14:05 | disposition home or self-care (01) ==
LOC: EC 11:45
DX: M54.50 Low back pain, unspecified (principal); E11.9 Type 2 diabetes mellitus without complications; K21.9 Gastro-esophageal reflux disease without esophagitis; E78.5 Hyperlipidemia, unspecified; I10 Essential (primary) hypertension; Z86.16 Personal history of COVID-19; Z91.040 Latex allergy status; Z88.7 Allergy status to serum and vaccine; Z87.891 Personal history of nicotine dependence; Z88.8 Allergy status to other drugs, medicaments and biological substances; Z79.84 Long term (current) use of oral hypoglycemic drugs; Z79.899 Other long term (current) drug therapy; Z79.82 Long term (current) use of aspirin; X50.0XXA Overexertion from strenuous movement or load, initial encounter; Y92.89 Other specified places as the place of occurrence of the external cause
CPT/HCPCS: 72100; 99283; 96372; J1885

== ENCOUNTER 2022-07-29 15:29 | Emergency (ER) | payer OTHER ==
[2022-07-29] MEDS ORDERED: KETOROLAC 15 MG/ML 1 ML VIAL IM STA (16:45)
[2022-07-29] MEDS ORDERED: LIDOCAINE 5% PATCH TOPICAL SCH (17:00)
--- NOTE | 2022-07-29 17:45 | ED ---
General Adult HPI - General Chief complaint: Back Pain/Injury Stated complaint: BACK PAIN Time Seen by Provider: 07/29/22 16:20 Source: patient Mode of arrival: ambulatory Limitations: no limitations - History of Present Illness Initial comments: 77-year-old male with history of chronic back pain presents to the emergency department the chief complaint of worsening low back pain that started 3 weeks ago. He denies any recent trauma or injury. He reports that he is taking Tylenol Motrin at home with mild symptomatic relief. He reports that it is painful when he tries to walk. He denies any numbness, tingling, weakness in the right lower extremity. Denies any fevers, saddle paresthesias, loss of bowel or bladder function - Related Data Home Medications Medication Instructions Recorded Confirmed Aspirin EC [Ecotrin Low Dose] 81 mg PO DAILY 11/07/15 11/11/21 Atorvastatin [Lipitor] 80 mg PO HS 11/07/15 11/11/21 Ferrous Sulfate [Iron (65 MG 325 mg PO BID 11/07/15 11/11/21 Elemental)] Metoprolol Tartrate [Lopressor] 25 mg PO BID 11/07/15 11/11/21 Pantoprazole [Protonix] 40 mg PO DAILY 11/07/15 11/11/21 metFORMIN HCL [Glucophage] 850 mg PO TID 11/07/15 11/11/21 Carbidopa/Levodopa [Sinemet CR 2 tab PO TID 05/05/16 11/11/21 50-200 mg] Tadalafil 20 mg PO DAILY PRN 02/14/19 11/11/21 DULoxetine HCL [Cymbalta] 60 mg PO BID 01/18/21 11/11/21 Loratadine 10 mg PO DAILY 01/18/21 11/11/21 Mirtazapine [Remeron] 7.5 mg PO HS PRN 01/18/21 11/11/21 Pregabalin [Lyrica] 75 mg PO TID 01/18/21 11/11/21 rOPINIRole HCL [Requip] 5 mg PO TID 01/18/21 11/11/21 Cholecalciferol [Vitamin D3 (25 50 mcg PO DAILY 07/30/21 11/11/21 Mcg = 1000 Iu)] Tamsulosin [Flomax] 0.4 mg PO HS 07/30/21 11/11/21 rOPINIRole HCL [Requip] 3 mg PO TID 07/30/21 11/11/21 Meloxicam [Mobic] 7.5 mg PO BID 11/11/21 11/11/21 clonazePAM [Klonopin ODT] 0.25 mg PO TID 11/11/21 11/11/21 polyethylene glycoL 3350 [Miralax] 17 gm PO DAILY PRN 11/11/21 11/11/21 Previous Rx's Medication Instructions Recorded Clopidogrel [Plavix] 75 mg PO DAILY 30 Days #30 tab 08/01/21 Losartan [Cozaar] 25 mg PO DAILY 90 Days #90 tab 08/01/21 Ketorolac [Toradol] 10 mg PO Q8HR #15 tab 07/29/22 Lidocaine 5% Patch [Lidoderm] 1 patch TOPICAL DAILY #10 patch 07/29/22 Allergies Allergy/AdvReac Type Severity Reaction Status Date / Time latex Allergy Rash/Hives Verified 07/29/22 15:56 Tetanus Vaccines and Toxoid Allergy Unknown Verified 07/29/22 15:56 [Tetanus Vaccines & Toxoid] Childhood gabapentin AdvReac DEPRESSION Verified 07/29/22 15:56 lisinopril AdvReac Cough Verified 07/29/22 15:56 primidone AdvReac DROWSINESS Verified 07/29/22 15:56 tape Allergy Rash/Hives Uncoded 07/29/22 15:56 Review of Systems ROS Statement: Those systems with pertinent positive or pertinent negative responses have been documented in the HPI. ROS Other: All systems not noted in ROS Statement are negative. Past Medical History Past Medical History: Diabetes Mellitus, GERD/Reflux, Hyperlipidemia, Hypertension Additional Past Medical History / Comment(s): RLS, kidney stones, Parkinsons Disease, COVID 06/2021 History of Any Multi-Drug Resistant Organisms: None Reported Past Surgical History: Back Surgery, Cholecystectomy, Joint Replacement, Orthopedic Surgery Additional Past Surgical History / Comment(s): RT ARM SX. RT TKA. BACK SX X 2. KIDNEY STONES REMOVED. COLONOSCOPY, EGD. Cataract surgery Past Anesthesia/Blood Transfusion Reactions: No Reported Reaction Additional Past Anesthesia/Blood Transfusion Reaction / Comment(s): Never had a blood transfuson to his knowledge. Past Psychological History: PTSD Smoking Status: Former smoker Past Alcohol Use History: None Reported Past Drug Use History: None Reported - Past Family History Mother Additional Family Medical History / Comment(s): Pancreatic cancer. Father Family Medical History: Congestive Heart Failure (CHF) General Exam - General Exam Comments Initial Comments: General: Alert, in no acute distress Head: atraumatic normocephalic. Eyes PERRL, EOMI intact, mucous membranes moist Respiratory: Lungs clear to auscultation bilaterally Cardiovascular: Rate regular rate and rhythm Abdominal: Soft without guarding or rebound Extremities: Normal inspection with full range of motion and normal capillary refill, patient able tingling with a steady gait Neuroogic: alert and oriented 3, CN II-XII intact, able to ambulate with steady gait Skin: warm dry and intact with normal color Limitations: no limitations Course Vital Signs 07/29/22 07/29/22 15:53 18:01 Temperature 96.8 F L 97.4 F L Pulse Rate 85 80 Respiratory 20 16 Rate Blood Pressure 163/79 135/76 O2 Sat by Pulse 96 98 Oximetry Medical Decision Making - Medical Decision Making Was pt. sent in by a medical professional or institution (Dr. PA, [employer]ER, urgent care, hospital, or fdc...) When possible be specific @ -[No] Did you speak to anyone other than the patient for history (EMS, parent, family, police, friend...)? What history was obtained from this source @ -[No] Did you review nursing and triage notes (agree or disagree)? Why? @ -[I reviewed and agree with nursing and triage notes] Were old charts reviewed (outside hosp., previous admission, EMS record, old EKG, old radiological studies, urgent care reports/EKG's, fdc records)? Report findings @ -[No old charts were reviewed] Differential Diagnosis (chest pain, altered mental status, abdominal pain women, abdominal pain men, vaginal bleeding, weakness, fever, dyspnea, syncope, headache, dizziness, GI bleed, back pain, seizure, CVA, palpatations, mental health, musculoskeletal)? @ -[not applicable] EKG interpreted by me (3pts min.). @ -[As above] X-rays interpreted by me (1pt min.). @ -[None done] CT interpreted by me (1pt min.). @ -[None done] U/S interpreted by me (1pt. min.). @ -[None done] What testing was considered but not performed or refused? (CT, X-rays, U/S, labs)? Why? @ -[None] What meds were considered but not given or refused? Why? @ -[None] Did you discuss the management of the patient with other professionals (professionals i.e. , PA, [employer] TE[employer]ER, lab, RT, psych nurse, social economist, business lawyer, teacher, weapons officer, residential case manager)? Give summary @ -[No] Was smoking cessation discussed for >3mins.? @ -[No] Was critical care preformed (if so, how long)? @ -[No] Were there social determinants of health that impacted care today? How? (Homelessness, low income, unemployed, alcoholism, drug addiction, transportation, low edu. Level, literacy, decrease access to med. care, custodial, rehab)? @ -[No] Was there de-escalation of care discussed even if they declined (Discuss DNR or withdrawal of care, Hospice)? DNR status @ -[No] What co-morbidities impacted this encounter? (DM, HTN, Smoking, COPD, CAD, Cancer, CVA, ARF, Chemo, Hep., AIDS, mental health diagnosis, sleep apnea, morbid obesity)? @ -[None] Was patient admitted / discharged? Hospital course, mention meds given and route, prescriptions, significant lab abnormalities, going to OR and other pertinent info. @ -Discharged. This is a 77-year-old male who presents the emergency department with low back pain. Patient had a thorough history and physical exam is essentially unremarkable. Heart rate regular rate and rhythm lungs clear to auscultation bilaterally abdomen is soft and non-tender. Mild tenderness to right hip however full range of motion intact, 5 out of 5 strength, 2+ DT/PT pulses bilaterally. Care able to inflate with a steady gait. Patient was given Toradol and Lidoderm patch with mild symptomatic relief on the ED. He was given a prescription for Toradol and Lidoderm patches upon discharge. Return precautions were discussed at length. Patient discharged in stable condition. Case discussed with MELISSA Harris who agrees with plan of care Undiagnosed new problem with uncertain prognosis? @ -[No] Drug Therapy requiring intensive monitoring for toxicity (Heparin, Nitro, Insulin, Cardizem)? @ -[No] Were any procedures done? @ -[No] Diagnosis/symptom? @ -low back pain Acute, or Chronic, or Acute on Chronic? @ -acute Uncomplicated (without systemic symptoms) or Complicated (systemic symptoms)? @ -uncomplicated Side effects of treatment? @ -[No] Exacerbation, Progression, or Severe Exacerbation? @ -[No] Poses a threat to life or bodily function? How? (Chest pain, [place], [place], pneumonia, PE, COPD, DKA, ARF, appy, cholecystitis, CVA, Diverticulitis, Homicidal, Suicidal, threat to staff... and all critical care pts) @ -low likelihood Disposition Clinical Impression: Mechanical back pain Disposition: HOME SELF-CARE Condition: Stable Instructions (If sedation given, give patient instructions): Acute Low Back Pain (ED) Prescriptions: Lidocaine 5% Patch [Lidoderm] 1 patch TOPICAL DAILY #10 patch Ketorolac [Toradol] 10 mg PO Q8HR #15 tab Is patient prescribed a controlled substance at d/c from ED?: No Referrals: [facility],Clinic [Primary Care Provider] - 1-2 days Time of Disposition: 17:44
[2022-07-29 18:02] VITALS: BP 135/76; PULSE 80; RESP 16; TEMP 97.4
== END 2022-07-29 18:06 | disposition home or self-care (01) ==
LOC: EC 15:29
DX: M54.50 Low back pain, unspecified (principal); E11.9 Type 2 diabetes mellitus without complications; K21.9 Gastro-esophageal reflux disease without esophagitis; E78.5 Hyperlipidemia, unspecified; I10 Essential (primary) hypertension; Z86.16 Personal history of COVID-19; Z87.891 Personal history of nicotine dependence; Z88.7 Allergy status to serum and vaccine; Z91.040 Latex allergy status; Z88.8 Allergy status to other drugs, medicaments and biological substances; Z79.82 Long term (current) use of aspirin; Z79.84 Long term (current) use of oral hypoglycemic drugs; Z79.899 Other long term (current) drug therapy
CPT/HCPCS: 99283; 96372; J1885

== ENCOUNTER → 2022-09-02 | Outpatient (CLI) | payer MEDICARE, OTHER | LOC: CPPFTMAIN 07:27 | DX: R06.2 Wheezing (principal); Z91.040 Latex allergy status; Z88.7 Allergy status to serum and vaccine; Z88.8 Allergy status to other drugs, medicaments and biological substances; Z91.048 Other nonmedicinal substance allergy status; Z87.891 Personal history of nicotine dependence | CPT/HCPCS: 94060; 94726; 94729 ==

== ENCOUNTER 2022-11-19 12:09 | Emergency (ER) | payer OTHER, MEDICARE ==
[2022-11-19] MEDS ORDERED: KETOROLAC 15 MG/ML 1 ML VIAL IM STA (14:40)
[2022-11-19] MEDS ORDERED: methocarbamoL 750 MG TAB PO STA (15:16)
--- NOTE | 2022-11-19 15:17 | ED ---
Back Pain HPI - General Chief Complaint: Back Pain/Injury Stated Complaint: back pain Time Seen by Provider: 11/19/22 14:31 Source: EMS Limitations: no limitations - History of Present Illness Initial Comments: 77 year old male presenting to the ED with a chief complaint of back pain. Patient states that this is a chronic issue however notes over the past 4 weeks has been worsening in severity especially today. States pain radiates down his left leg. Denies any recent injury or trauma. Denies incontinence. Denies saddle anesthesia. Patient has not follow with an orthopedic surgeon before in the past for this. No other complaints. - Related Data Home Medications Medication Instructions Recorded Confirmed Aspirin EC [Ecotrin Low Dose] 81 mg PO DAILY 11/07/15 11/11/21 Atorvastatin [Lipitor] 80 mg PO HS 11/07/15 11/11/21 Ferrous Sulfate [Iron (65 MG 325 mg PO BID 11/07/15 11/11/21 Elemental)] Metoprolol Tartrate [Lopressor] 25 mg PO BID 11/07/15 11/11/21 Pantoprazole [Protonix] 40 mg PO DAILY 11/07/15 11/11/21 metFORMIN HCL [Glucophage] 850 mg PO TID 11/07/15 11/11/21 Carbidopa/Levodopa [Sinemet CR 2 tab PO TID 05/05/16 11/11/21 50-200 mg] Tadalafil 20 mg PO DAILY PRN 02/14/19 11/11/21 DULoxetine HCL [Cymbalta] 60 mg PO BID 01/18/21 11/11/21 Loratadine 10 mg PO DAILY 01/18/21 11/11/21 Mirtazapine [Remeron] 7.5 mg PO HS PRN 01/18/21 11/11/21 Pregabalin [Lyrica] 75 mg PO TID 01/18/21 11/11/21 rOPINIRole HCL [Requip] 5 mg PO TID 01/18/21 11/11/21 Cholecalciferol [Vitamin D3 (25 50 mcg PO DAILY 07/30/21 11/11/21 Mcg = 1000 Iu)] Tamsulosin [Flomax] 0.4 mg PO HS 07/30/21 11/11/21 rOPINIRole HCL [Requip] 3 mg PO TID 07/30/21 11/11/21 Meloxicam [Mobic] 7.5 mg PO BID 11/11/21 11/11/21 clonazePAM [Klonopin ODT] 0.25 mg PO TID 11/11/21 11/11/21 polyethylene glycoL 3350 [Miralax] 17 gm PO DAILY PRN 11/11/21 11/11/21 Previous Rx's Medication Instructions Recorded Clopidogrel [Plavix] 75 mg PO DAILY 30 Days #30 tab 08/01/21 Losartan [Cozaar] 25 mg PO DAILY 90 Days #90 tab 08/01/21 Ketorolac [Toradol] 10 mg PO Q8HR #15 tab 07/29/22 Lidocaine 5% Patch [Lidoderm] 1 patch TOPICAL DAILY #10 patch 07/29/22 Ibuprofen [Motrin] 600 mg PO Q8HR PRN #20 tab 11/19/22 methocarbamoL [Methocarbamol] 750 mg PO TID #12 tablet 11/19/22 Allergies Allergy/AdvReac Type Severity Reaction Status Date / Time latex Allergy Rash/Hives Verified 11/19/22 12:29 Tetanus Vaccines and Toxoid Allergy Unknown Verified 11/19/22 12:29 [Tetanus Vaccines & Toxoid] Childhood gabapentin AdvReac DEPRESSION Verified 11/19/22 12:29 lisinopril AdvReac Cough Verified 11/19/22 12:29 primidone AdvReac DROWSINESS Verified 11/19/22 12:29 tape Allergy Rash/Hives Uncoded 11/19/22 12:29 Review of Systems ROS Statement: Those systems with pertinent positive or pertinent negative responses have been documented in the HPI. ROS Other: All systems not noted in ROS Statement are negative. Past Medical History Past Medical History: Diabetes Mellitus, GERD/Reflux, Hyperlipidemia, Hypertension Additional Past Medical History / Comment(s): RLS, kidney stones, Parkinsons Disease, COVID 06/2021 History of Any Multi-Drug Resistant Organisms: None Reported Past Surgical History: Back Surgery, Cholecystectomy, Joint Replacement, O rthopedic Surgery Additional Past Surgical History / Comment(s): RT ARM SX. RT TKA. BACK SX X 2. KIDNEY STONES REMOVED. COLONOSCOPY, EGD. Cataract surgery Past Anesthesia/Blood Transfusion Reactions: No Reported Reaction Additional Past Anesthesia/Blood Transfusion Reaction / Comment(s): Never had a blood transfuson to his knowledge. Past Psychological History: PTSD Smoking Status: Former smoker Past Alcohol Use History: None Reported Past Drug Use History: None Reported - Past Family History Mother Additional Family Medical History / Comment(s): Pancreatic cancer. Father Family Medical History: Congestive Heart Failure (CHF) General Exam Limitations: no limitations General appearance: alert, in no apparent distress Neck exam: Present: normal inspection Respiratory exam: Present: normal lung sounds bilaterally, respiratory distress Cardiovascular Exam: Present: regular rate Extremities exam: Present: other (Strength and sensation equal and symmetric in bilateral lower extremities. DP/PT pulses 2+.) Back exam: Present: normal inspection, other (No midline cervical, thoracic, lumbar tenderness to palpation midline.) Neurological exam: Present: alert, oriented X3 Skin exam: Present: warm, dry Course Vital Signs 11/19/22 12:25 Temperature 97.7 F Pulse Rate 66 Respiratory 18 Rate Blood Pressure 153/77 O2 Sat by Pulse 96 Oximetry Medical Decision Making - Medical Decision Making Was pt. sent in by a medical professional or institution (, PA, [facility], urgent care, hospital, or [facility]...) When possible be specific @ -No Did you speak to anyone other than the patient for history (EMS, parent, family, police, friend...)? What history was obtained from this source @ -No Did you review nursing and triage notes (agree or disagree)? Why? @ -I reviewed and agree with nursing and triage notes Were old charts reviewed (outside hosp., previous admission, EMS record, old EKG, old radiological studies, urgent care reports/EKG's, [facility] records)? Report findings @ -No old charts were reviewed Differential Diagnosis (chest pain, altered mental status, abdominal pain women, abdominal pain men, vaginal bleeding, weakness, fever, dyspnea, syncope, headache, dizziness, GI bleed, back pain, seizure, CVA, palpatations, mental health, musculoskeletal)? @ -Differential Back Pain: Strain, zoster, cauda equina syndrome, epidural abscess, vertebral osteomyelitis, discitis, fracture, subluxation, disc herniation, DJD, spinal stenosis, dissection, AAA, pancreatitis, peptic ulcer disease, pyelonephritis, kidney stone, this is not meant to be an all-inclusive list. EKG interpreted by me (3pts min.). @ -None X-rays interpreted by me (1pt min.). @ -None done CT interpreted by me (1pt min.). @ -None done U/S interpreted by me (1pt. min.). @ -None done What testing was considered but not performed or refused? (CT, X-rays, U/S, labs)? Why? @ -X-ray was considered however patient reports no injury or trauma since prior x-ray at this facility one year ago. What meds were considered but not given or refused? Why? @ -None Did you discuss the management of the patient with other professionals (professionals i.e. , PA, [employer], lab, RT, psych nurse, social media strategist, clerk supervisor, teacher, district fire management officer, catalytic case operator)? Give summary @ -No Was smoking cessation discussed for >3mins.? @ -No Was critical care preformed (if so, how long)? @ -No Were there social determinants of health that impacted care today? How? (Alanis elessness, low income, unemployed, alcoholism, drug addiction, transportation, low edu. Level, literacy, decrease access to med. care, assisted, rehab)? @ -No Was there de-escalation of care discussed even if they declined (Discuss DNR or withdrawal of care, Hospice)? DNR status @ -No What co-morbidities impacted this encounter? (DM, HTN, Smoking, COPD, CAD, Cancer, CVA, ARF, Chemo, Hep., AIDS, mental health diagnosis, sleep apnea, morbid obesity)? @ -None Was patient admitted / discharged? Hospital course, mention meds given and route, prescriptions, significant lab abnormalities, going to OR and other pertinent info. @ -Discharge. Patient had significant improvement of pain here with Toradol and methocarbamol. Patient states he is discharged home. Patient discharged home in stable condition with prescriptions for ibuprofen and Robaxin. Advised follow-up with orthopedics/pain management. Discussed return precautions with patient who verbalizes agreement. Undiagnosed new problem with uncertain prognosis? @ -No Drug Therapy requiring intensive monitoring for toxicity (Heparin, Nitro, Insulin, Cardizem)? @ -No Were any procedures done? @ -No Diagnosis/symptom? @ -Back pain Acute, or Chronic, or Acute on Chronic? @ -Acute on chronic Uncomplicated (without systemic symptoms) or Complicated (systemic symptoms)? @ -Uncomplicated Side effects of treatment? @ -No Exacerbation, Progression, or Severe Exacerbation? @ -No Poses a threat to life or bodily function? How? (Chest pain, [place], [place], pneumonia, PE, COPD, DKA, ARF, appy, cholecystitis, CVA, Diverticulitis, Homicidal, Suicidal, threat to staff... and all critical care pts) @ -No Disposition Clinical Impression: Back pain Disposition: HOME SELF-CARE Condition: Good Instructions (If sedation given, give patient instructions): Acute Low Back Pain (ED) Additional Instructions: Please return to the Emergency Department if symptoms worsen or any other concerns. Prescriptions: methocarbamoL [Methocarbamol] 750 mg PO TID #12 tablet Ibuprofen [Motrin] 600 mg PO Q8HR PRN #20 tab PRN Reason: Pain Is patient prescribed a controlled substance at d/c from ED?: No Referrals: [facility],Clinic [Primary Care Provider] - 1-2 days
[2022-11-19 16:45] VITALS: BP 153/92; PULSE 64; RESP 16; TEMP 97.9
== END 2022-11-19 17:05 | disposition home or self-care (01) ==
LOC: EC 12:09
DX: M54.9 Dorsalgia, unspecified (principal); E11.9 Type 2 diabetes mellitus without complications; E78.5 Hyperlipidemia, unspecified; I10 Essential (primary) hypertension; K21.9 Gastro-esophageal reflux disease without esophagitis; Z79.82 Long term (current) use of aspirin; Z79.84 Long term (current) use of oral hypoglycemic drugs; Z79.899 Other long term (current) drug therapy; Z86.16 Personal history of COVID-19; Z87.891 Personal history of nicotine dependence; Z88.7 Allergy status to serum and vaccine; Z91.040 Latex allergy status; Z88.8 Allergy status to other drugs, medicaments and biological substances
CPT/HCPCS: 99283; 96372; J1885